=== PATIENT | male | born 1945 | race Caucasian/White ===

== ENCOUNTER 2023-07-11 17:03 | Observation (INO) | payer MEDICARE, SELFPAY ==
[2023-07-11] VITALS (11 sets, daily range): BP systolic 113–181; BP diastolic 59–142; PULSE 60; O2SAT 97; BMI 32.6; BMI 33.7
--- NOTE | 2023-07-11 12:00 | ED.GENMED ---
History of Present Illness
General
Chief Complaint: Fall
Time Seen by Provider: 07/11/23 11:33
Travel History
Have you had any contact with someone who has COVID-19?: No
Do you have any symptoms of coronavirus? Fever > 100 degrees, chills, cough, shortness of breath, sore throat, loss of taste or smell, muscle aches, or headache?: No
History of Present Illness
History of Present Illness:
77-year-old male with history of Parkinson's and mild dementia, as well as prior stroke presents to the emergency department for evaluation of increased weakness and difficulty with transfers. The patient typically utilizes a power chair for
mobilization, requires a walker to self transfer to commode and bed. He is having difficulty transferring and is falling frequently as a result. He feels that over the past several weeks he cannot use the right leg due to profound weakness. Does
have a history of prior stroke that affected the left leg. Denies any head strike or head trauma with these falls. Denies any other complaints. No recent fevers. No recent medication changes
Past History
Past History
ED Past Medical History: CVA, HTN, Hypercholesterolemia, NIDDM and Other (Parkinson's disease)
ED Past Surgical History: Orthopedic
Social History
Tobacco: Former smoker
Personal:
Living: with family
Review of Systems
Review of Systems
Allergies reviewed?: Yes
All Other Systems: ROS reviewed and negative except as documented in HPI and ROS
Phy Exam
Physical Exam
Physical Exam:
GEN: Well appearing, NAD, WDWN
HEENT: Oral mucosa moist, no scleral icterus
Cardiac: Regular rate
Lung: No respiratory distress, no tachypnea
MSK: No gross deformity or injuries
Skin: Good color, no pallor or jaundice, no rashes
Neuro: AO x3. Extremity tremors noted, significant asymmetric weakness involving the right lower extremity. All extremities are globally weak
Psych: Calm, cooperative
Course
Orders/Labs/Results
Orders:
Orders
07/11/23 11:59
CT Head W/o Iv Contrast Urgent
Comment:
Reason For Exam: falls, gait disturbance
07/11/23 12:11
Complete Blood Count/With Diff Urgent
Comprehensive Metabolic Panel Urgent
07/11/23 13:24
Urinalysis Reflex To Culture Urgent
Date Specimen was Collected: 07/11/23
Time Specimen was Collected: 13:22
Urine Microscopic Reflex Cult Urgent
Urine Culture Urgent
LUIZ Source: U
Specimen Description:
Date Specimen was Collected: 07/11/23
Time Specimen was Collected: :
07/11/23 14:04
Case Management Consult ONCE
Case Management Consult: [facility]pc Placement
Pt Eval And Treat Urgent
Activity Level: As Tolerated
Abnormal Lab Results
07/11/23 07/11/23
12:11 13:24
RBC 4.42 L 10^6/uL
(4.70-6.10)
MPV 11.5 H fL
(7.4-10.4)
Creatinine 0.6 L mg/dL
(0.7-1.3)
Glucose 175 H mg/dl
(70-99)
AST 15 L U/L
(17-59)
Leukocyte Esterase Rfl 1+ A
(Negative)
Urine Bacteria (Reflex) Few A
(Negative)
07/11/23 12:11
07/11/23 12:11
Vital Signs
Initial and Last Documented VS:
Initial Vital Signs
Temp Pulse Resp BP Pulse Ox
97.9 F 65 16 113/74 96
07/11/23 10:13 07/11/23 10:13 07/11/23 10:13 07/11/23 10:13 07/11/23 10:13
Last Documented Vital Signs
Temp Pulse Resp BP Pulse Ox
97.9 F 59 18 159/83 96
07/11/23 10:13 07/11/23 12:31 07/11/23 12:31 07/11/23 12:12 07/11/23 12:13
MDM/Problems Addressed
MDM/Problems Addressed:
Patient's medical workup is grossly unremarkable. He is significantly functionally deconditioned. Certainly consideration for subacute CVA given the right lower extremity asymmetric weakness however CT of the head shows no evidence for this and
his symptoms have been ongoing for approximately 3 weeks. Will have the patient evaluated by physical therapy and case management for placement considerations as he is not suitable to go home at this time.
Patient was seen in the emergency department by therapy and case management and agreed with rehab placement. Per case management patient will require hospitalist evaluation in order to be accepted to SNF, will place in observation under the
hospitalist service
*Critical Care Note
Total Time (30-74mins, 75-104mins- exclusive of procedures): Not Applicable
ED Attending Note
-
Portions of this chart may have been created with voice recognition software.� Occasional wrong word or��sound alike� substitutions may have occurred due to the inherent limitations of voice recognition software.
Discharge Plan
Departure
Patient Disposition: Admit
Date of Disposition: 07/11/23
Time of Disposition: 15:44
Admit to: Med/Surg
Presentation/result/management discussed w/ accepting MD/DO: Hospitalist
Discharge Problem:
Ambulatory dysfunction, Parkinson disease
Prescriptions:
No Action
terazosin 1 MG capsule
2 mg PO HS
fluoxetine 20 MG capsule
20 mg PO DAILY
pioglitazone 15 MG tablet
15 mg PO DAILY
metformin 850 MG tablet
850 mg PO BID@1000,1900
glimepiride 1 MG tablet
1 mg PO DAILY
memantine 10 MG tablet
10 mg PO BID
losartan 50 MG tablet
50 mg PO DAILY
fenofibrate 54 MG tablet
54 mg PO DAILY
clopidogrel 75 MG tablet
75 mg PO DAILY
pantoprazole 40 MG tablet,delayed release (DR/EC)
40 mg PO BID
zolpidem 5 MG tablet
5 mg PO HS
Rx Instructions:
02/04/2023, patient filled this medication on 11/13/2022 for 90 tablets according to PDMP.
metoprolol succinate 50 MG tablet extended release 24 hr
50 mg PO DAILY
atorvastatin 20 MG tablet
10 mg PO DAILY
donepezil 10 mg Tablet
10 mg PO HS
carbidopa-levodopa 25-250 mg Tablet
1 tab PO 5/D
Patient Comments:
02/04/2023, patient's spouse states that patient takes one tablet of this medication @0700, 1100, 1500, 1900, and 2300.
Rx Instructions:
02/04/2023, patient takes one tablet of this medication fives times a day.
carbidopa-levodopa 25-100 mg Tablet
1 tab PO BID@0700,1500
potassium citrate 10 mEq (1,080 mg) Tablet Extended Release
10 meq PO BID
hyoscyamine sulfate 0.125 mg Tablet
0.375 mg PO DAILY
hyoscyamine sulfate 0.125 mg Tablet
0.375 mg PO NOON
hyoscyamine sulfate 0.125 mg Tablet
0.25 mg PO HS
Align 4 mg Capsule
4 mg PO DAILY PRN (Reason: diarrhea)
cholecalciferol (vitamin D3) 50 mcg (2,000 unit) Tablet
50 mcg PO DAILY
doxycycline hyclate 100 mg Capsule
100 mg PO Q12 12 Days Qty: 24 0RF
Referrals:
Venancio Simmons MD [Family Provider] -
Interventions
Interventions:
*Risk Screen - Suicide Last Done: 07/11/23 10:13
*General Assessment Last Done: 07/11/23 10:13
*Neglect/Abuse Screening Last Done: 07/11/23 10:13
*ED COVID-19 Vaccine History Last Done: 07/11/23 12:04
ED-Musculoskeletal Assessment Last Done: 07/11/23 12:14
ED- Neurological Assessment Last Done: 07/11/23 12:14
ED-Skin Assessment Last Done: 07/11/23 14:35
Discharge Date and Time
Print Language: QATARI
[2023-07-11 12:20] LABS: % Basophils 1.1 % (0-2); % Eosinophils 3.8 % (0-6); % Immature Granulocytes 0.5 % (0-0.5); % Lymphocytes 22.4 % (20.5-51.1); % Neutrophils 66.2 % (42.2-75.2); Absolute Basophils 0.1 10^3/uL (0-0.2); Absolute Eosinophils 0.2 10^3/uL (0-0.7); Absolute Lymphocytes 1.4 10^3/uL (1.2-3.4); Absolute Monocytes 0.4 10^3/uL (0.1-0.6); Absolute Neutrophils 4.2 10^3/uL (1.4-6.5); Hematocrit 39.4 % (39.0-52.0); Hemoglobin 13.1 g/dL (13.0-18.0); Mean Corp Hgb Conc. 33.2 g/dL (33.0-37.0); Mean Corpuscular Hgb 29.6 pg (27.0-31.0); Mean Corpuscular Volume 89.1 fL (80.0-94.0); Mean Platelet Volume 11.5 fL (7.4-10.4); Nucleated Red Blood Cells % 0 % (-); Platelet Count 145 10^3/uL (130-400); Red Blood Cell Count 4.42 10^6/uL (4.70-6.10); Red Cell Dist. Width 12.6 % (11.5-14.5); White Blood Cell Count 6.3 10^3/uL (4.8-10.8)
[2023-07-11 12:51] LABS: ALT (SGPT) < 10 U/L (0-50); AST (SGOT) 15 U/L (17-59); Albumin 3.8 g/dl (3.5-5.0); Alkaline Phosphatase 62 U/L (38-126); Blood Urea Nitrogen 17 mg/dl (9-20); Calcium 9.4 mg/dl (8.4-10.2); Carbon Dioxide 28 mmol/L (22-30); Chloride 103 mmol/L (98-107); Estimated Creatinine Clearance 124 ml/min; Glucose 175 mg/dl (70-99); Potassium 4.2 mmol/L (3.5-5.1); Sodium 136 mmol/L (135-145); Total Bilirubin 0.8 mg/dl (0.2-1.3); Total Protein 6.3 g/dl (6.3-8.2); eGFR > 60.00
[2023-07-11 13:31] LABS: Urine Albumin Negative (Neg - Trace); Urine Bilirubin Negative (Negative); Urine Character Clear (Clear); Urine Color Yellow; Urine Glucose Negative (Negative); Urine Ketone Negative (Negative); Urine Leukocyte 1+ (Negative); Urine Nitrite Negative (Negative); Urine Occult Blood Negative (Negative); Urine Specific Gravity 1.015 (<1.030); Urine Urobilinogen Negative (Neg - 1+)
[2023-07-11 14:32] LABS: Urine Squamous Cell 0-2 /LPF (Few)
[2023-07-11 14:33] LABS: Urine Bacteria Few (Negative); Urine Red Blood Cell 0-2 /HPF (0-2)
--- NOTE | 2023-07-11 14:50 | CM ---
Addendum entered by Tori Mcginnis RN 07/11/23 15:15:
PT done not documented yet. Referral sent via care port to SNF.
Original Note:
Alert awake oriented patient who lives with his Alice in an apartment at [facility] with an elevator. He uses an electric wheelchair and walker. He slipped when transferring to wheelchair. said he is getting more weak. He does not
ambulate as per .He is assisted all activities of daily living.As per ER nurse PT eval has not been done yet. chose [facility] at SNF picks.
[facility]
PCP Dr Burch
PLAN To SNF after accepted and approved
--- NOTE | 2023-07-11 16:38 | HPS.HSE ---
Family Physician
-
Family Physician: Venancio Simmons
Chief Complaint
-
right sided weakness
History of Present Illness
77-year-old male past medical history of Parkinson's disease, mild dementia, HFpEF, hypertension, hyperlipidemia, CVA with residual left-leg weakness, spinal stenosis, DVT, nephrolithiasis, diabetes, asbestosis, obesity, presenting for relatively
sudden onset of right lower extremity weakness over the past few weeks. Patient typically utilizes a power chair for mobilization and requires walker for self transfer to bed. He has been having difficulty with this and has been frequently
falling. Denies any head injury.
Patient also complaining of numbness and tingling in his right forearm and first 3 fingers of his right hand. Patient's family also noticed right facial droop over this time. Patient denies headache. He has chronic right eye blurry vision.
Denies any difficulty speaking. He sometimes coughs after swallowing but this is not new. Parkinson disease has been relatively stable until the past few weeks. No new medications.
Patient does have some residual left lower extremity weakness from prior stroke.
Patient denies smoking or alcohol use.
Medical History
Past Medical History
Past Medical History: Reports Other ( Parkinson's disease, mild dementia, HFpEF, hypertension, hyperlipidemia, CVA with residual left-leg weakness, spinal stenosis, DVT, nephrolithiasis, diabetes, asbestosis, obesity)
Past Surgical History: Reports Other (Orthopedic)
Social History
Tobacco: Non-smoker
Alcohol: None
Drug: None
Family History
Family History: Not pertinent
Allergies / Home Medications
Allergies reflects when Allergies were last updated in [facility].
Home Medications with original date entered in [facility]
Allergy/Medication List:
Allergies
Allergy/AdvReac Type Severity Reaction Status Date / Time
codeine Allergy Unknown Verified 11/16/21 06:50
latex Allergy Unknown Verified 11/16/21 06:50
oxycodone HCl [From Percocet] Allergy Unknown Verified 11/16/21 06:50
Home Medications
fluoxetine 20 mg capsule 20 mg PO DAILY Mental Health/Anxiety 11/12/12
glimepiride 1 mg tablet 1 mg PO DAILY Diabetes 03/08/18
memantine 10 mg tablet 10 mg PO BID@1100,1900 Neurological Condition 03/08/18
metformin 850 mg tablet 850 mg PO BID@1000,1900 Diabetes 03/08/18
pioglitazone 15 mg tablet 15 mg PO DAILY Diabetes 03/08/18
losartan 50 mg tablet 50 mg PO DAILY Blood pressure 11/12/18
clopidogrel 75 mg tablet 75 mg PO DAILY Blood clot prevention/tx 01/11/20
fenofibrate 54 mg tablet 54 mg PO DAILY High cholesterol 01/11/20
pantoprazole 40 mg tablet,delayed release 40 mg PO BID@1100,1900 Gastrointestinal issue 01/11/20
zolpidem 5 mg tablet 5 mg PO HS Sleep 01/13/20
atorvastatin 20 mg tablet 10 mg PO DAILY High cholesterol 09/12/21
metoprolol succinate 50 mg tablet,extended release 24 hr 50 mg PO DAILY Blood pressure 09/12/21
donepezil 10 mg tablet 10 mg PO HS MEMORY 11/11/21
carbidopa 25 mg-levodopa 100 mg tablet 1 tab PO BID@0700,1500 PARKINSONS 11/16/21
carbidopa 25 mg-levodopa 250 mg tablet 1 tab PO 5/D@0700,11,15,19,23 PARKINSONS 11/16/21
Bifidobacterium infantis 4 mg capsule (Align) 4 mg PO Q48H 02/04/23
cholecalciferol (vitamin D3) 50 mcg (2,000 unit) tablet 50 mcg PO DAILY Supplement 02/04/23
hyoscyamine sulfate 0.125 mg tablet 0.25 mg PO QPMPRN PRN secretions 02/04/23
hyoscyamine sulfate 0.125 mg tablet 0.375 mg PO BIDPRN PRN secretions 02/04/23
potassium chloride 10 mEq tablet,extended release 10 meq PO BID@1100,1900 07/11/23
propylene glycol (PF) 0.6 % eye drops (Systane Complete PF) 1 drp ophthalmic (eye) DAILY 07/11/23
propylene glycol (PF) 0.6 % eye drops (Systane Complete PF) 1 drp ophthalmic (eye) HSPRN PRN dry eyes 07/11/23
terazosin 2 mg capsule 2 mg PO HS 07/11/23
Review of Systems
-
History Source: Patient
A 12 point ROS was completed and negative except as noted: Yes
Constitutional: Reports No Symptoms
EENT: Reports No Symptoms
Respiratory: Reports No Symptoms
Cardiac: Reports No Symptoms
Abdomen/GI: Reports No Symptoms
: Reports No Symptoms
Musculoskeletal: Reports No Symptoms
Skin: Reports No Symptoms
Neurological: Reports See HPI
Endocrine: Reports No Symptoms
Hematologic/Lymphatic: Reports No Symptoms
Psych: Reports No Symptoms
Physical Exam
Vital Signs
Vital Signs
Temp Pulse Resp BP Pulse Ox
97.9 F 59 18 159/83 96
07/11/23 10:13 07/11/23 12:31 07/11/23 12:31 07/11/23 12:12 07/11/23 12:13
Physical Exam
General: Well Developed, Well Nourished and No Apparent Distress
HEENT: NormoCephalic, Moist mucous membranes and Atraumatic
Respiratory: Clear
Cardiac: S1/S2 and Regular Rhythm; No Murmur or Rub
GI: Soft, Non Tender, Non Distended and Normal Bowel Sounds; No Organomegaly
Rectal: Deferred by Provider
Musculoskeletal: No Clubbing, No Cyanosis and No Edema
Skin: No Rash
Neuro: Nonfocal/grossly intact and Other (right lower leg weakness (+2 NIH), right facial droop (+1))
Laboratory Results
-
07/11/23 12:11
07/11/23 12:11
Laboratory Results
Total Bilirubin 0.8 mg/dl (0.2-1.3) 07/11/23 12:11
AST 15 U/L (17-59) L 07/11/23 12:11
ALT < 10 U/L (0-50) 07/11/23 12:11
Alkaline Phosphatase 62 U/L (38-126) 07/11/23 12:11
Data Reviewed
-
Lab Data: Labs Reviewed by me
Old Records: Reviewed
Impression/Plan
-
IMPRESSION:
PLAN:
# Asymmetric new right lower extremity weakness/right upper extremity numbness/right facial droop likely secondary to subacute CVA
# Prior left posterior limb of internal capsule/anterolateral left thalamus strokes with residual left lower leg weakness
-NIH of 3
-Out of window for tPA
-CT head shows no acute abnormality
-Check MRI/MRA head and neck
-Continue Plavix, give 325 mg aspirin, continue 81 mg daily
-PT/OT, case management
Parkinson's disease
-Continue carbidopa-levodopa
Mild dementia
-Continue donepezil, memantine
-Continue fluoxetine
Chronic HFpEF
Essential hypertension
-Continue losartan
-Continue metoprolol
-Continue terazosin
Hyperlipidemia
-Continue statin, fenofibrate
Spinal stenosis
History of DVT
Nephrolithiasis
Type 2 diabetes
-Continue metformin
-Continue glimepiride, pioglitazone
Obesity
Asbestosis
DNR/DNI
DVT prophylaxis�SCDs
Regular diet
[2023-07-11] MEDS: ASPIRIN 325 MG PO (17:39)
[2023-07-11] MEDS: KCL 10 MEQ PO (20:10)
[2023-07-11] MEDS: ARICEPT 10 MG PO (20:10)
[2023-07-11] MEDS: GLUCOPHAGE 850 MG PO (20:10)
[2023-07-11] MEDS: PROTONIX 40 MG PO (20:10)
[2023-07-11] MEDS: SINEMET 25-250 1 TABLET PO ×2 (20:11→22:01)
[2023-07-11] MEDS: NAMENDA 10 MG PO (20:21)
[2023-07-11] MEDS: HYTRIN 2 MG PO (22:01)
[2023-07-11] MEDS: AMBIEN 5 MG PO (22:02)
[2023-07-12] VITALS (8 sets, daily range): BP systolic 132–174; BP diastolic 69–85
[2023-07-12] MEDS: SINEMET 25-250 1 TABLET PO ×5 (05:53→23:10)
[2023-07-12] MEDS: SINEMET 25-100 1 TABLET PO ×2 (05:53→16:29)
[2023-07-12 06:53] LABS: % Basophils 0.9 % (0-2); % Eosinophils 3.3 % (0-6); % Immature Granulocytes 0.6 % (0-0.5); % Lymphocytes 31.2 % (20.5-51.1); % Monocytes 6.4 % (1.7-9.3); % Neutrophils 57.6 % (42.2-75.2); Absolute Basophils 0.1 10^3/uL (0-0.2); Absolute Eosinophils 0.2 10^3/uL (0-0.7); Absolute Lymphocytes 2.2 10^3/uL (1.2-3.4); Absolute Monocytes 0.5 10^3/uL (0.1-0.6); Absolute Neutrophils 4.1 10^3/uL (1.4-6.5); Hematocrit 39.7 % (39.0-52.0); Hemoglobin 12.9 g/dL (13.0-18.0); Mean Corp Hgb Conc. 32.5 g/dL (33.0-37.0); Mean Corpuscular Hgb 29.9 pg (27.0-31.0); Mean Corpuscular Volume 92.1 fL (80.0-94.0); Mean Platelet Volume 12.2 fL (7.4-10.4); Nucleated Red Blood Cells % 0 % (-); Platelet Count 134 10^3/uL (130-400); Red Blood Cell Count 4.31 10^6/uL (4.70-6.10); Red Cell Dist. Width 12.6 % (11.5-14.5)
[2023-07-12 07:17] LABS: ALT (SGPT) < 10 U/L (0-50); AST (SGOT) 19 U/L (17-59); Albumin 3.6 g/dl (3.5-5.0); Alkaline Phosphatase 60 U/L (38-126); Blood Urea Nitrogen 16 mg/dl (9-20); Calcium 9.2 mg/dl (8.4-10.2); Carbon Dioxide 27 mmol/L (22-30); Chloride 104 mmol/L (98-107); Estimated Creatinine Clearance 108 ml/min; Glucose 131 mg/dl (70-99); Potassium 3.9 mmol/L (3.5-5.1); Sodium 138 mmol/L (135-145); Total Bilirubin 0.7 mg/dl (0.2-1.3); Total Protein 5.9 g/dl (6.3-8.2); eGFR > 60.00
[2023-07-12] MEDS: PROZAC 20 MG PO (08:54)
[2023-07-12] MEDS: TRICOR 48 MG PO (08:55)
[2023-07-12] MEDS: PLAVIX 75 MG PO (08:55)
[2023-07-12] MEDS: TOPROL XL 50 MG PO (08:55)
[2023-07-12] MEDS: AMARYL 1 MG PO (08:55)
[2023-07-12] MEDS: VITAMIN D3 (cholecalciferol) 50 MCG PO (08:55)
[2023-07-12] MEDS: ACTOS 15 MG PO (08:55)
[2023-07-12] MEDS: VISBIOME 1 CAP PO (08:55)
[2023-07-12] MEDS: COZAAR 50 MG PO (08:55)
[2023-07-12] MEDS: LIPITOR 10 MG PO (08:55)
[2023-07-12] MEDS: REFRESH EYE DROPS (PF) 1 DROPS BOTH EYES (08:56)
[2023-07-12] MEDS: LOW STRENGTH ASPIRIN 81 MG PO (08:57)
--- NOTE | 2023-07-12 09:03 | CON.NEURO4 ---
Addendum entered and electronically signed by Jon Trevino MD 07/12/23 11:35:
I saw and evaluate the patient I reviewed the note by Nury Andres agree with the findings the following comments:
77-year-old male with a past ministry of Parkinson disease with associated dementia, spinal stenosis, previous ischemic stroke, chronic right leg weakness presents to the hospital with increasing right leg weakness, minor amount of right arm and
hand paresthesia and observe right facial asymmetry by his family. Patient reports that they have called the ambulance multiple times this week due to immobility and fall issues. He reports he lives alone with his . Denies any recent
illnesses or changes in medication regimen including Sinemet. No headache currently. Frustrated about not moving well.
Patient had had previous similar incidences of right leg weakness and generalized weakness seen in our hospital January 2023 as well as October 2018.
He is on Plavix for secondary stroke prevention.
Neurologic examination shows cognitive impairment and mild dementia, no aphasia.
No cranial nerve deficits seen no facial weakness appreciated.
No weakness or drift of the the arms bilaterally.
Right leg shows moderate weakness 4/5 hip flexion.
Minimal cogwheel rigidity in the right arm and wrist more than the left, moderate General parkinsonism and bradykinesia.
Previous brain MRI from 2012 as well as 2018 reviewed
There is T2/FLAIR shine through producing some mild brightness on the diffusion sequence in the left thalamus that does not represent acute stroke, similar appearance is on both the 2013 and 2019 MRIs in this area. Chronic infarct on the left basal
ganglia area.
Assessment: Suspect that these are worsening of chronic issues which are multifactorial gait issues and is from spinal stenosis, previous ischemic stroke, Parkinson's disease. No recent obvious medication changes or severe metabolic derangements or
acute infectious illnesses.
Recommendations
-Continue with Plavix 75 mg daily alone
-Check MRI brain without contrast
-Consideration for EMG in the outpatient setting to evaluate for possibly carpal tunnel syndrome producing right hand paresthesia
-Discussed with patient and were discussed with case management recommendation for any avenues for greater resources or aids or help at home given significant disability and immobility from Parkinson's disease spinal stenosis and previous stroke
Original Note:
Documented by User: Nury Corcoran NP 07/12/23 10:48
Consultation - Neurology 4
-
CONSULTING PHYSICIAN: Alia Trevino MD
REFERRING PHYSICIAN: Hospitalists/Dr. Cristina
DICTATED BY: ANDREW Vidales
DATE/TIME OF REQUEST: 07/12/23
DATE/TIME OF CONSULTATION: 07/12/23
Reason for Consultation: Weakness
History of Present Illness:
This is a 77-year-old right-handed male who has presented to the hospital with report of generalized weakness and worsening of his chronic RLE weakness. Patient is followed by Neurology Dr. Dugan as an outpatient for a 20 year history of Parkinson
disease and dementia and has been evaluated by our inpatient Neurology service several times in the past for similar symptoms.
From my previous evaluation on 02/04/23:
'This is a 77-year-old right-handed male with a PMH of Parkinson disease, dementia, HTN, HLD, chronic ischemic stroke, RLE weakness, and DVT who has presented to the hospital on 02/03/23 with report of increased weakness. Patient has been evaluated
by our Neurology service as an inpatient in the past and is followed by Neurology Dr. Dugan as an outpatient.
From previous evaluation by Dr. Hazel on 11/13/18:
''72-year-old male with a history of Parkinson's disease, TIA, stroke and spinal stenosis with chronic right lower extremity weakness admitted for evaluation for generalized weakness. The patient states that for the past 3 days he has been unable to
sit up and feels 'weak all over.' He also reports severe hypophonia. He has required multiple people to assist him sitting up.� He is apparently bed and wheelchair bound at baseline. He denies any focal weakness and it appears that his right lower
extremity weakness is chronic. He denies any associated dysarthria, aphasia, numbness, headache, confusion, loss of awareness or loss of consciousness. He denies any diplopia or change in his vision. Family has noted some mild confusion. He has no
clear past medical history of seizure.� He has had decreased oral intake over the past few days. Increased swelling in the right more so than the left lower extremity has been noted. He has a history of edema in the right leg for which she is
followed as an outpatient.� He is unable to tell me who he follows with as an outpatient for his Parkinson's and dementia.� As an outpatient, he takes simvastatin 20 mg, Plavix 75 mg as well as Aricept, Namenda, Sinemet and pramipexole.� Outpatient
records indicate he has never been seen by the [facility] group.
He was seen by service in the past in October 2012 at which time he presented with sudden onset of bilateral lower extremity weakness that lasted approximately 10 hours in duration and then resolved. He denied any other associated focal neurological
deficits. At that time it was noted that he had history of chronic right lower extremity weakness related to back surgery vs a 2001 stroke and was walking with a walker. During that admission, he also reported a history of TIA consisting of aphasia.
MRI brain done during this 2012 admission showed no acute stroke but did show a focal area of signal abnormality in the left lentiform nucleus, compatible with chronic ischemic infarct. Mild to moderate diffuse atrophy was seen as well as mild
T2-weighted white matter hyperintensities c/w small vessel disease.� His bilateral lower extremity weakness was attributed to freezing episodes related to his Parkinson's vs TIA.� EEG showed no evidence of seizure. Carotid ultrasound showed no
significant stenosis. He was discharged on Plavix with statin at that point.''
Yesterday (02/03/23), patient reports that he had increased weakness in the afternoon and was unable to transfer from the toilet to his wheelchair as he usually does. His was unable to assist him and called 911. Patient reports that this does
happen to him intermittently, but he is unable to state a cause for these episodes in the past. In the ER, urinalysis is suggestive of UTI. Today, patient reports feeling well but he has not been out of bed so he is unsure how his strength is. He
denies any headache, dizziness, vision changes, speech/swallow difficulty, chest pain, palpitations, and shortness of breath. He endorses chronic RLE weakness and also notes that he has had numbness in his right hand 1st, 2nd, and 3rd fingers
radiating up to his elbow starting one month ago. He has urinary incontinence at baseline but denies any dysuria. His reports that his urine has a foul odor but she denies any confusion or change in his mental status. He is taking clopidogrel
75mg daily and denies missing any doses or having any recent changes made to his Parkinson's medication regimen.
Today (07/12/23): Patient reports that 3-4 weeks ago he developed generalized weakness and profound worsening of his chronic RLE weakness. He ambulates with a power chair and transfers independently at baseline, but he started to be too weak to
transfer himself or stand/pivot. He has had these symptoms in the past, typically associated with an infection, so his took his to his PCP for a urinalysis which was unremarkable. His symptoms persisted and he reports that over the past 3 days
they have had to call EMS 6 times to help him back up off of the ground after he slid out of his chair. On arrival in the ER on 07/11/23, CT head was obtained and is negative for any acute abnormalities. He is not a candidate for TNK/IAT due to
unclear diagnosis, similar symptoms in the past not associated with stroke. He is taking clopidogrel 75mg daily for stroke prevention. He endorses a history of significant left-sided dyskinesias from Sinemet usage. Patient denies headache,
dizziness, vision changes, speech/swallow difficulty, nausea, dysuria, chest pain, palpitations, and shortness of breath. He reports ongoing numbness in his right hand 1st, 2nd, and 3rd fingers radiating up to his elbow which was present on
evaluation in January 2023, he still has not been evaluated for this as an outpatient. He denies any recent fever, cough, congestion, diarrhea, or sick exposures.
Past Medical History: � Parkinson disease, dementia, HTN, HLD, chronic left lentiform nucleus, left internal capsule/thalamus ischemic strokes, TIA consisting of aphasia, spinal stenosis, chronic RLE weakness, DVT, kidney stone
Surgical History: R TKR, lumbar fusion, cholecystectomy, right ureteroscopy/laser lithotripsy, neck surgery, left rotator cuff repair, left ankle surgery
Family History: Reviewed and noncontributory.
Social History: Former tobacco. Denies alcohol and illicit drug use.
Allergies: Latex, oxycodone, codeine.
Home Medications:
Review of Symptoms:
Patient denies any fever, headache, chest pain, shortness of breath, GI or symptoms.
�Per the HPI.�All systems are reviewed negative except above.
Physical Exam:
The patient is afebrile, abdomen is nondistended, breathing is unlabored, skin is warm and dry, no edema.
NIH Stroke Scale:
I performed the NIH stroke scale on the patient on 07/12/23 at 1000. The patient scored 3 points on the NIH stroke scale assessment, which were assigned as follows: See below.
Neurologic Examination:
The patient is awake, alert and oriented x3. He is able to follow commands and answer questions appropriately. Speech is hypophonic. There is no aphasia or dysarthria. On cranial nerve assessment, pupils are 3 mm bilateral, round and reactive to
light and accommodation. Visual ramos are full. Extraocular movements are intact. Facial sensations are intact and bilaterally symmetrical, there is no facial asymmetry. Hearing is intact bilaterally to normal conversation volume. Tongue palate
and uvula are midline. Sternocleidomastoid strengths are full bilaterally. Motor strengths are 5/5 bilateral upper, 4/5 LLE, 3+/5 RLE on medical research [place] scale. There is drift in BLE. +Dyskinesias in the left arm and left leg. No rigidity
noted. Deep tendon reflexes are 1+ bilateral upper and absent bilateral lower extremities and Babinski is absent bilaterally. There was no extinction noted on double simultaneous stimulation. Coordination is intact by finger to nose bilaterally.
Lab Results: See below.
Neuro Imaging:
1. CT Head 07/11/23: No acute intracranial abnormality.
Differentials for the patient's presentation include:
1. Worsening of multifactorial chronic ambulatory dysfunction; Parkinson disease, previous CVA, and spinal stenosis. Unclear if a metabolic disturbance is exacerbating symptoms or if this is worsening of his chronic disease processes.
2. Very low concern for a new area of stroke.
3. RUE carpal tunnel syndrome.
Patient has the following risk factors for their symptoms: Hx CVA with residual RLE weakness, advanced Parkinson disease
IV Tenecteplase/IAT candidacy: He is not a candidate for TNK/IAT due to unclear diagnosis, similar symptoms in the past not associated with acute stroke.
Recommendations:
-MRI brain noncontrast ordered/pending.
-Continue home Plavix 75mg daily.
-Goal normotension.
-Check orthostatic vital signs.
-Continue home Parkinson and dementia medication regimen.
-Avoid antipsychotics.
-Consideration for additional support services at home to assist with his care.
-NIHSS and neurological checks per unit guidelines. Provide patient with a stroke education packet.
-PT/OT/ST evaluations
-EMG as an outpatient to evaluate for RUE carpal tunnel.
-Follow-up with Dr. Dugan as an outpatient.
-Will follow pending results.
Discussed patient care with: Dr. Trevino, the patient
Vital Signs and Labs
-
Vital Signs and Labs:
Vital Signs
Temp Pulse Resp BP Pulse Ox
98.0 F 67 22 130/78 95
07/12/23 07:55 07/12/23 08:55 07/12/23 07:55 07/12/23 08:55 07/12/23 10:15
Lab Results
07/12/23 05:52
07/12/23 05:52
Sodium 138 mmol/L (135-145) 07/12/23 05:52
Potassium 3.9 mmol/L (3.5-5.1) 07/12/23 05:52
BUN 16 mg/dl (9-20) 07/12/23 05:52
Glucose 131 mg/dl (70-99) H 07/12/23 05:52
Calcium 9.2 mg/dl (8.4-10.2) 07/12/23 05:52
Medications
-
Active Medications
Generic Name Dose Route Start Last Admin
Trade Name Freq PRN Reason Stop Dose Admin
Artificial Tears 1 drops 07/11/23 19:22
Artificial Tears Pf (Refresh) 10 Drop Droperette OPHTH 08/08/23 19:21
HSPRN PRN
dry eyes
Artificial Tears 1 drops 07/12/23 08:00 07/12/23 08:56
Artificial Tears Pf (Refresh) 10 Drop Droperette BOTH EYES 08/09/23 07:59 1 drops
DAILY KARLOS Administration
Atorvastatin Calcium 10 mg 07/12/23 08:00 07/12/23 08:55
Atorvastatin (Lipitor) 10 Mg Tablet PO 08/09/23 07:59 10 mg
DAILY KARLOS Administration
Carbidopa/Levodopa 1 tablet 07/11/23 19:14 07/12/23 05:53
Carbidopa (25 Mg)/Levodopa (250 Mg) Regular Release Tablet PO 08/08/23 19:13 1 tablet
5/D@0700,11,15,19,23 KARLOS Administration
Carbidopa/Levodopa 1 tablet 07/12/23 07:00 07/12/23 05:53
Carbidopa (25 Mg)/Levodopa (100 Mg) Regular Release Tablet PO 08/09/23 06:59 1 tablet
BID@0700,1500 KARLOS Administration
Cholecalciferol 50 mcg 07/12/23 08:00 07/12/23 08:55
Cholecalciferol (Vitamin D3) 50 Mcg Tablet (2,000 Units) PO 08/09/23 07:59 50 mcg
DAILY KARLOS Administration
Clopidogrel Bisulfate 75 mg 07/13/23 08:00
Clopidogrel 75 Mg Tablet PO 08/10/23 07:59
DAILY KARLOS
Dextrose 12.5 grams 07/12/23 10:03
Dextrose 50% (0.5 Grams/Ml) 50 Ml Syringe IV 08/09/23 10:02
[id number] PRN
hypoglycemia
Protocol
Donepezil HCl 10 mg 07/11/23 22:00 07/11/23 20:10
Donepezil Hcl 10 Mg Tablet PO 08/08/23 21:59 10 mg
HS KARLOS Administration
Fenofibrate 48 mg 07/12/23 08:00 07/12/23 08:55
Fenofibrate 48 Mg Tablet PO 08/09/23 07:59 48 mg
DAILY KARLOS Administration
Fluoxetine HCl 20 mg 07/12/23 08:00 07/12/23 08:54
Fluoxetine 20 Mg Capsule PO 08/09/23 07:59 20 mg
DAILY KARLOS Administration
Glimepiride 1 mg 07/12/23 08:00 07/12/23 08:55
Glimepiride 1 Mg Tablet PO 08/09/23 07:59 1 mg
DAILY KARLOS Administration
Glucagon 1 mg 07/12/23 10:03
Glucagon 1 Mg Vial IM 08/09/23 10:02
PRN PRN
hypoglycemia
Protocol
Hyoscyamine Sulfate 0.375 mg 07/11/23 19:20
Hyoscyamine 0.125 Mg (Sl/Oral) Tablet PO 08/08/23 19:19
BIDPRN PRN
secretions
Hyoscyamine Sulfate 0.25 mg 07/11/23 19:21
Hyoscyamine 0.125 Mg (Sl/Oral) Tablet PO 08/08/23 19:20
QPMPRN PRN
secretions
Insulin Aspart 0 units 07/12/23 11:30
Insulin Aspart Low Resistance 300 Units/3 Ml Pen.Injctr SC 08/09/23 11:29
AC KARLOS
Protocol
Lactobacillus/Bifidobacterium 1 cap 07/12/23 08:00 07/12/23 08:55
Lactobac/Bifidobac (Visbiome) PO 08/09/23 07:59 1 cap
Q48H KARLOS Administration
Losartan Potassium 50 mg 07/12/23 08:00 07/12/23 08:55
Losartan 50 Mg Tablet PO 08/09/23 07:59 50 mg
DAILY KARLOS Administration
Memantine 10 mg 07/11/23 19:14 07/11/23 20:21
Memantine 10 Mg Tablet PO 08/08/23 19:13 10 mg
BID@1100,1900 KARLOS Administration
Metformin HCl 850 mg 07/11/23 19:14 07/11/23 20:10
Metformin 850 Mg Regular Release Tablet PO 08/08/23 19:13 850 mg
BID@1000,1900 KARLOS Administration
Metoprolol Succinate 50 mg 07/12/23 08:00 07/12/23 08:55
Metoprolol 50 Mg Extended Release Tablet PO 08/09/23 07:59 50 mg
DAILY KARLOS Administration
Pantoprazole Sodium 40 mg 07/11/23 19:14 07/11/23 20:10
Pantoprazole 40 Mg Delayed Release Tablet PO 08/08/23 19:13 40 mg
BID@1100,1900 KARLOS Administration
Pioglitazone HCl 15 mg 07/12/23 08:00 07/12/23 08:55
Pioglitazone Hcl 15 Mg Tablet PO 08/09/23 07:59 15 mg
DAILY KARLOS Administration
Potassium Chloride 10 meq 07/11/23 19:14 07/11/23 20:10
Potassium Chloride 10 Meq Extended Release Tablet PO 08/08/23 19:13 10 meq
BID@1100,1900 KARLOS Administration
Terazosin HCl 2 mg 07/11/23 22:00 07/11/23 22:01
Terazosin 1 Mg Capsule PO 08/08/23 21:59 2 mg
HS KARLOS Administration
Zolpidem Tartrate 5 mg 07/11/23 22:00 07/11/23 22:02
Zolpidem Tartrate 5 Mg Tablet PO 08/08/23 21:59 5 mg
HS KARLOS Administration
Home Medications
�Medication �Instructions �Recorded
fluoxetine 20 mg capsule 20 mg PO DAILY Mental 11/12/12
Health/Anxiety
glimepiride 1 mg tablet 1 mg PO DAILY Diabetes 03/08/18
memantine 10 mg tablet 10 mg PO BID@1100,1900 03/08/18
Neurological Condition
metformin 850 mg tablet 850 mg PO BID@1000,1900 Diabetes 03/08/18
pioglitazone 15 mg tablet 15 mg PO DAILY Diabetes 03/08/18
losartan 50 mg tablet 50 mg PO DAILY Blood pressure 11/12/18
clopidogrel 75 mg tablet 75 mg PO DAILY Blood clot 01/11/20
prevention/tx
fenofibrate 54 mg tablet 54 mg PO DAILY High cholesterol 01/11/20
pantoprazole 40 mg tablet,delayed 40 mg PO BID@1100,1900 01/11/20
release Gastrointestinal issue
zolpidem 5 mg tablet 5 mg PO HS Sleep 01/13/20
atorvastatin 20 mg tablet 10 mg PO DAILY High cholesterol 09/12/21
metoprolol succinate 50 mg 50 mg PO DAILY Blood pressure 09/12/21
tablet,extended release 24 hr
donepezil 10 mg tablet 10 mg PO HS MEMORY 11/11/21
carbidopa 25 mg-levodopa 100 mg 1 tab PO BID@0700,1500 PARKINSONS 11/16/21
tablet
carbidopa 25 mg-levodopa 250 mg 1 tab PO 5/D@0700,11,15,19,23 11/16/21
tablet PARKINSONS
Bifidobacterium infantis 4 mg 4 mg PO Q48H 02/04/23
capsule (Align)
cholecalciferol (vitamin D3) 50 50 mcg PO DAILY Supplement 02/04/23
mcg (2,000 unit) tablet
hyoscyamine sulfate 0.125 mg tablet 0.25 mg PO QPMPRN PRN secretions 02/04/23
hyoscyamine sulfate 0.125 mg tablet 0.375 mg PO BIDPRN PRN secretions 02/04/23
potassium chloride 10 mEq 10 meq PO BID@1100,1900 07/11/23
tablet,extended release
propylene glycol (PF) 0.6 % eye 1 drp ophthalmic (eye) DAILY 07/11/23
drops (Systane Complete PF)
propylene glycol (PF) 0.6 % eye 1 drp ophthalmic (eye) HSPRN PRN 07/11/23
drops (Systane Complete PF) dry eyes
terazosin 2 mg capsule 2 mg PO HS 07/11/23
NIH Stroke Score
Subsequent NIH Scale
Date of Subsequent NIH Scale: 07/12/23
Time of Subsequent NIH Scale: 10:00
NIH Stroke Score
Level of Consciousness: 0 - Alert
LOC Questions: 0-Answers both correctly
LOC Commands: 0-Performs both correctly
Best Horizontal Gaze: 0-Normal
Visual Ramos: 0=Normal, no visual loss
Facial Palsy: 0=Normal, symmetrical
Motor - Right Arm: 0=No drift 10 seconds
Motor - Left Arm: 0=No drift 10 seconds
Motor - Right Le-Partial vs. gravity
Motor - Left Le-Drift < 5 seconds
Limb Ataxia: 0-Absent
Sensation: 0-Normal
Best Language: 0-No aphasia
Dysarthria: 0-Normal
Extinction and Inattention: 0-No abnormality
Total Score:: 3

Documented by User: Jon Trevino MD 07/12/23 11:29
NIH Stroke Score
NIH Stroke Score
Total Score:: 3
--- NOTE | 2023-07-12 09:23 | WOUNDNOTE ---
WON RN note: Patient admitted with ambulatory dysfunction.
See H&P for complete history.
PMH: NIDDM,HTN,Parkinsons,CVA, mild dementia and frequent falls.
Wound Location and type/assessment: Patient admitted with: Scattered partial thickness openings on both buttocks, larger one on R upper buttock suspect MASD vs stage 2 PI. Patient reports he sits all day at home and is incontinent, does not change
diaper. He states his told him he needs to change diaper more often. Using condom catheter in hospital but keeps on falling off reports nurse. Turned patient with assist from nurse Diaz, patient assisted. Heels are intact, no other wounds noted.
Appetite: Good.
Pressure redistribution devices in place: Versa care air, turning schedule, pillow under calves applied. Air chair cushion when sitting. Repositioned onto R semi side position.
Plan: Applied silicone foam to R buttock larger wound, then barrier cream to remainder of buttock open sores. Skin care and brief changed, condom catheter fell off.
Will confirm orders with hospitalist and updated nurse.
Updated care plan and will follow as needed.
Note to case management of equipment requested for discharge: VN if home
[2023-07-12] MEDS: PROTONIX 40 MG PO ×2 (11:10→18:23)
[2023-07-12] MEDS: KCL 10 MEQ PO ×2 (11:10→18:23)
[2023-07-12] MEDS: GLUCOPHAGE 850 MG PO ×2 (11:10→18:23)
[2023-07-12] MEDS: NAMENDA 10 MG PO ×2 (11:10→18:23)
[2023-07-12 11:19] LABS: Glucose - Point of Care 176 mg/dl (70-99)
[2023-07-12] MEDS: NOVOLOG FLEXPEN-LOW RESISTANCE 1 UNITS SC (12:24)
--- NOTE | 2023-07-12 13:42 | W.PN.HOSP.TC ---
Today's Communication/Plan
-
Venous Doppler right lower extremity
Discharge planning for rehab
Assessment / Plan
Assessment / Plan
77-year-old male with Parkinson disease admitted with right lower extremity weakness uses a power chair for mobilization requires walker for transfer to bed has been having difficulties with this. He needs help transfer to the chair at home per
. He also had some neck numbness and tingling of the right forearm and first 3 fingers of the right hand.
CVS: S1-S2 normal
Chest: CTA B/L
Abdomen: Soft, NT / Bowel sounds present
Extremities: Edema of the right lower extremity
OCCASIONAL BABYSITTER: Good distal muscle strength, mild paresthesia on the dorsal right arm and also lateral 3 fingers on the right, bilateral lower extremities, good hand grasp no pronator drift
No facial droop noted
# Asymmetric new right lower extremity weakness/right upper extremity numbness/right facial droop Noted by family
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
-Admitted to rule out CVA
-CT head shows no acute abnormality
-Good distal muscle strength bilateral lower extremity, mild paresthesia on the dorsal right arm and also lateral 3 fingers on the right.
-Continue Plavix
-PT/OT, case management
-Neurology evaluation appreciated. Feels that right lower extremity weakness is likely spinal stenosis related
Also may have carpal tunnel syndrome.
-Also needs EMG as outpatient for the right hand paresthesia
#Parkinson's disease
-Continue carbidopa-levodopa
#Mild dementia
-Continue donepezil, memantine
#Anxiety and Depression-Continue fluoxetine
#Chronic HFpEF
#Essential hypertension
-Continue losartan
-Continue metoprolol
-Continue terazosin
#Hyperlipidemia
-Continue statin, fenofibrate
#Spinal stenosis
Lumbar and also Cervical
#History of DVT-
With right lower extremity edema will get a Doppler
#Nephrolithiasis
#Type 2 diabetes
-Continue metformin, glimepiride, pioglitazone
-Accu checks and SSI
#Obesity
#Asbestosis
#Ex Smoker
#DNR/DNI
#DVT prophylaxis�SCDs
Discussed with patient's at bedside and patient's daughter on the phone
Discussed with neurology
Discussed with case management
Patient would benefit from rehab /SNF to improve strength
Anticipated Discharge: Within 24 hours
Subjective/Interval History
-
Date of Service: July 12, 2023
Objective Data
-
Labs:
Laboratory Results
07/12/23
05:52
WBC 7.0
Hgb 12.9 L
Hct 39.7
Plt Count 134
Sodium 138
Potassium 3.9
Chloride 104
Carbon Dioxide 27
BUN 16
Creatinine 0.7
Glucose 131 H
Calcium 9.2
Total Bilirubin 0.7
AST 19
ALT < 10
Alkaline Phosphatase 60
Vital Signs:
Vital Signs
Temp Pulse Resp BP Pulse Ox
97.9 F 70 20 164/81 94
07/12/23 11:55 07/12/23 11:55 07/12/23 11:55 07/12/23 11:55 07/12/23 11:55
I&O
07/11/23 07/12/23 07/13/23
06:59 06:59 06:59
Intake Total 120 / 120
Balance 120 / 120
--- NOTE | 2023-07-12 15:23 | CM ---
Patient approved through [facility] waiver program to [facility] for tomorrow, 07/13/23. CM met with patient and , reports she does not travel far and is not sure if she can travel to [place]. CM reports Madhuri Mitchell and Ian
unfortunately do not participate in the waiver program. reports she will talk to her children, asks CM to keep plan for discharge tomorrow to [place]. reports otherwise she would take patient home. CM discussed per PT notes and heavy
assist needed, concern for patient to return home, reports understanding. FOX status reviewed, refused to sign, placed in chart. CM will continue to follow for discharge planning needs.
Plan; [facility] tomorrow, will require ambulance transport.
[2023-07-12 16:51] LABS: Glucose - Point of Care 93 mg/dl (70-99)
[2023-07-12] MEDS: NOVOLOG FLEXPEN-LOW RESISTANCE SC (17:01)
[2023-07-12] MEDS: AMBIEN 5 MG PO (21:14)
[2023-07-12] MEDS: ARICEPT 10 MG PO (21:14)
[2023-07-12] MEDS: HYTRIN 2 MG PO (21:14)
[2023-07-12 21:19] LABS: Glucose - Point of Care 118 mg/dl (70-99)
[2023-07-12] MEDS: REFRESH EYE DROPS (PF) 1 DROPS OPHTH (21:22)
[2023-07-13 03:44] VITALS: BP 153/83
[2023-07-13 06:00] VITALS: BMI 33.2
[2023-07-13] MEDS: SINEMET 25-100 1 TABLET PO ×2 (06:06→15:25)
[2023-07-13] MEDS: SINEMET 25-250 1 TABLET PO ×3 (06:06→15:25)
[2023-07-13 07:06] LABS: Glucose - Point of Care 116 mg/dl (70-99)
[2023-07-13 07:55] VITALS: BP 149/56
[2023-07-13 09:09] LABS: Glycohemoglobin (HgbA1c) 6.5 % (4.0-5.6)
[2023-07-13] MEDS: NOVOLOG FLEXPEN-LOW RESISTANCE SC (09:30)
[2023-07-13] MEDS: VITAMIN D3 (cholecalciferol) 50 MCG PO (09:31)
[2023-07-13] MEDS: TRICOR 48 MG PO (09:31)
[2023-07-13] MEDS: LIPITOR 10 MG PO (09:31)
[2023-07-13] MEDS: PROZAC 20 MG PO (09:31)
[2023-07-13] MEDS: ACTOS 15 MG PO (09:31)
[2023-07-13] MEDS: AMARYL 1 MG PO (09:31)
[2023-07-13] MEDS: PLAVIX 75 MG PO (09:31)
[2023-07-13] MEDS: REFRESH EYE DROPS (PF) 1 DROPS BOTH EYES (09:32)
[2023-07-13] MEDS: TOPROL XL 50 MG PO (09:32)
[2023-07-13] MEDS: COZAAR 50 MG PO (09:33)
[2023-07-13 11:55] VITALS: BP 128/67
[2023-07-13 11:55] LABS: Glucose - Point of Care 189 mg/dl (70-99)
[2023-07-13] MEDS: GLUCOPHAGE 850 MG PO (11:58)
[2023-07-13] MEDS: NAMENDA 10 MG PO (11:58)
[2023-07-13] MEDS: PROTONIX 40 MG PO (11:58)
[2023-07-13] MEDS: KCL 10 MEQ PO (11:58)
[2023-07-13] MEDS: NOVOLOG FLEXPEN-LOW RESISTANCE 1 UNITS SC (13:17)
--- NOTE | 2023-07-13 13:55 | CM ---
Addendum entered by Suni Menjivar 07/13/23 15:02:
Ambulance supervisor picking crew scheduled for 1630 today; facility liaisonAlyssia, notified
Addendum entered by Suni Menjivar 07/13/23 14:39:
Per facility Alyssia velez, Bed available anytime today; updated clinicals sent via [facility] as requested
[employer] notified re: [facility] waiver; spoke with Urvashi Cespedes @ # [phone]
Plan: Discharge to [facility] today via ambulance
Report # [phone]

Original Note:
Met with patient's at bedside to discuss discharge plan
is agreeable with plan to discharge to [facility]
[employer] form explained; signed form @ [id number]
Plan: Discharge to [facility] today via ambulance if medically stable
--- NOTE | 2023-07-13 14:09 | W.PN.HOSP.TC ---
Today's Communication/Plan
-
Discharge to rehab
Assessment / Plan
Assessment / Plan
77-year-old male with Parkinson disease admitted with right lower extremity weakness uses a power chair for mobilization requires walker for transfer to bed has been having difficulties with this. He needs help transfer to the chair at home per
. He also had some neck numbness and tingling of the right forearm and first 3 fingers of the right hand.
CVS: S1-S2 normal
Chest: CTA B/L
Abdomen: Soft, NT / Bowel sounds present
Extremities: Edema of the right lower extremity
CONTACT PRINTER DRY FILM: Good distal muscle strength, mild paresthesia on the dorsal right arm and also lateral 3 fingers on the right, bilateral lower extremities, good hand grasp no pronator drift
No facial droop noted
Venous Doppler negative for DVT
# Asymmetric new right lower extremity weakness/right upper extremity numbness/right facial droop Noted by family
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
-Admitted to rule out CVA
-CT head shows no acute abnormality
-Good distal muscle strength bilateral lower extremity, mild paresthesia on the dorsal right arm and also lateral 3 fingers on the right.
-Continue Plavix
-PT/OT, case management
-Neurology evaluation appreciated. Feels that right lower extremity weakness is likely spinal stenosis related
Also may have carpal tunnel syndrome.
-Also needs EMG as outpatient for the right hand paresthesia
#Parkinson's disease
-Continue carbidopa-levodopa
#Mild dementia
-Continue donepezil, memantine
#Anxiety and Depression-Continue fluoxetine
#Chronic HFpEF
#Essential hypertension
-Continue losartan
-Continue metoprolol
-Continue terazosin
#Hyperlipidemia
-Continue statin, fenofibrate
#Spinal stenosis
Lumbar and also Cervical
#History of DVT-
With right lower extremity edema will get a Doppler
#Nephrolithiasis
#Type 2 diabetes
-Continue metformin, glimepiride, pioglitazone
-Accu checks and SSI
#Obesity
#Asbestosis
#Ex Smoker
#DNR/DNI
#DVT prophylaxis�SCDs
Discussed with patient's at bedside
Discussed with nursing
Discussed with case management
Patient would benefit from rehab /SNF to improve strength
Anticipated Discharge: Today
Subjective/Interval History
-
Date of Service: July 13, 2023
Objective Data
-
Vital Signs:
Vital Signs
Temp Pulse Resp BP Pulse Ox
98.2 F 63 18 128/67 93
07/13/23 11:55 07/13/23 11:55 07/13/23 11:55 07/13/23 11:55 07/13/23 11:55
I&O
07/12/23 07/13/23 07/14/23
06:59 06:59 06:59
Intake Total 120 / 120 900 / 900
Balance 120 / 120 900 / 900
--- NOTE | 2023-07-13 14:16 | W.DS.TRANS ---
Addendum entered and electronically signed by Radha Montoya MD 07/13/23 16:49:
Dictation- [id number]
Original Note:
DC Summary - Senior Billing Consultant
-
Discharge Instructions:
Discharge Diagnosis/Procedures Right lower extremity-proximal muscle weakness,
numbness and tingling of the right arm,
Parkinson disease, dementia, anxiety and
depression, chronic heart failure, hypertension,
hyperlipidemia, spinal stenosis, cervical spine
stenosis, nephrolithiasis, diabetes, obesity
Diet 2 Gram Sodium,Restrict fluids to 64 oz,Diabetic,
Carb Controlled
Activity As tolerated,With assistance
Driving Restrictions No driving
Other Services PT,OT
Specialty Instructions Weigh Daily
Instructions:
Stand-Alone Forms:
Changes to Home Medications: No
Discharge Medications:
DC Medications w/original date entered in [facility]
fluoxetine 20 mg capsule 20 mg PO DAILY Mental Health/Anxiety 11/12/12
glimepiride 1 mg tablet 1 mg PO DAILY Diabetes 03/08/18
memantine 10 mg tablet 10 mg PO BID@1100,1900 Neurological Condition 03/08/18
metformin 850 mg tablet 850 mg PO BID@1000,1900 Diabetes 03/08/18
pioglitazone 15 mg tablet 15 mg PO DAILY Diabetes 03/08/18
losartan 50 mg tablet 50 mg PO DAILY Blood pressure 11/12/18
clopidogrel 75 mg tablet 75 mg PO DAILY Blood clot prevention/tx 01/11/20
fenofibrate 54 mg tablet 54 mg PO DAILY High cholesterol 01/11/20
pantoprazole 40 mg tablet,delayed release 40 mg PO BID@1100,1900 Gastrointestinal issue 01/11/20
atorvastatin 20 mg tablet 10 mg PO DAILY High cholesterol 09/12/21
metoprolol succinate 50 mg tablet,extended release 24 hr 50 mg PO DAILY Blood pressure 09/12/21
donepezil 10 mg tablet 10 mg PO HS MEMORY 11/11/21
carbidopa 25 mg-levodopa 100 mg tablet 1 tab PO BID@0700,1500 PARKINSONS 11/16/21
carbidopa 25 mg-levodopa 250 mg tablet 1 tab PO 5/D@0700,11,15,19,23 PARKINSONS 11/16/21
cholecalciferol (vitamin D3) 50 mcg (2,000 unit) tablet 50 mcg PO DAILY Supplement 02/04/23
hyoscyamine sulfate 0.125 mg tablet 0.25 mg PO QPMPRN PRN secretions 02/04/23
hyoscyamine sulfate 0.125 mg tablet 0.375 mg PO BIDPRN PRN secretions 02/04/23
propylene glycol (PF) 0.6 % eye drops (Systane Complete PF) 1 drp ophthalmic (eye) HSPRN PRN dry eyes 07/11/23
Bifidobacterium infantis 4 mg capsule (Align) 4 mg PO Q48H Supplement #0 caps 07/13/23
potassium chloride 10 mEq tablet,extended release 10 meq PO BID@1100,1900 Electrolyte Repletion #0 tabs 07/13/23
propylene glycol (PF) 0.6 % eye drops (Systane Complete PF) 1 drp ophthalmic (eye) DAILY Eye condition #0 mL 07/13/23
terazosin 2 mg capsule 2 mg PO HS Blood pressure #0 caps 07/13/23
zolpidem 5 mg tablet 5 mg PO HS #2 tabs 07/13/23
Home Medication Changes
Pending Results: No
[2023-07-13 15:29] VITALS: BP 132/71
== END 2023-07-13 16:56 ==
LOC: 4 EAST ACU 17:03
PROVIDERS: Physician Assistant; ADMITTING PHYSICIAN Hospitalist; ATTENDING PHYSICIAN Hospitalist; CONSULT PHYSICIAN Student in an Organized Health Care Education/Training Program; EMERGENCY PHYSICIAN Student in an Organized Health Care Education/Training Program; FAMILY PHYSICIAN Family Medicine
DX: M62.81 Muscle weakness (generalized) (principal); R29.6 Repeated falls; R20.2 Paresthesia of skin; R20.0 Anesthesia of skin; G20.A1 Parkinson's disease without dyskinesia, without mention of fluctuations; F02.A4 Dementia in other diseases classified elsewhere, mild, with anxiety; F02.A3 Dementia in other diseases classified elsewhere, mild, with mood disturbance; I69.354 Hemiplegia and hemiparesis following cerebral infarction affecting left non-dominant side; E78.00 Pure hypercholesterolemia, unspecified; I11.0 Hypertensive heart disease with heart failure; I50.32 Chronic diastolic (congestive) heart failure; E66.9 Obesity, unspecified; M48.02 Spinal stenosis, cervical region; R60.0 Localized edema; R29.810 Facial weakness; E11.9 Type 2 diabetes mellitus without complications; Z87.891 Personal history of nicotine dependence; Z75.1 Person awaiting admission to adequate facility elsewhere; Z79.84 Long term (current) use of oral hypoglycemic drugs; Z79.02 Long term (current) use of antithrombotics/antiplatelets; Z87.442 Personal history of urinary calculi; Z68.33 Body mass index [BMI] 33.0-33.9, adult; Z91.040 Latex allergy status; Z88.5 Allergy status to narcotic agent; Z86.718 Personal history of other venous thrombosis and embolism; Z66 Do not resuscitate
CPT/HCPCS: 70450; 70551; 80053; 81003; 81015; 82962; 83036; 85025; 87070; 87086; 93971; 99285; G0378

== ENCOUNTER 2024-03-12 18:02 | Inpatient (IN) | payer MEDICARE, SELFPAY ==
[2024-03-12] VITALS (15 sets, daily range): BP systolic 95–163; BP diastolic 54–139; BMI 36.0; BMI 34.5
[2024-03-12 16:53] LABS: ALT (SGPT) 14 U/L (0-50); AST (SGOT) 80 U/L (17-59); Alkaline Phosphatase 117 U/L (38-126); Blood Urea Nitrogen 22 mg/dl (9-20); Carbon Dioxide 20 mmol/L (22-30); Chloride 97 mmol/L (98-107); Estimated Creatinine Clearance 110 ml/min; Glucose 365 mg/dl (70-99); Sodium 134 mmol/L (135-145); Total Bilirubin 0.6 mg/dl (0.2-1.3); Total Protein 6.5 g/dl (6.3-8.2); eGFR > 60.00
[2024-03-12 16:58] LABS: Potassium 4.3 mmol/L (3.5-5.1)
[2024-03-12 17:03] LABS: % Basophils 0.7 % (0-2); % Eosinophils 2.4 % (0-6); % Immature Granulocytes 2.1 % (0-0.5); % Lymphocytes 30.8 % (20.5-51.1); % Monocytes 6.5 % (1.7-9.3); % Neutrophils 57.5 % (42.2-75.2); Absolute Basophils 0.1 10^3/uL (0-0.2); Absolute Eosinophils 0.2 10^3/uL (0-0.7); Absolute Immature Granulocytes 0.2 10^3/uL (0-0.05); Absolute Lymphocytes 2.8 10^3/uL (1.2-3.4); Absolute Monocytes 0.6 10^3/uL (0.1-0.6); Absolute Neutrophils 5.2 10^3/uL (1.4-6.5); Hemoglobin 13.5 g/dL (13.0-18.0); Mean Corp Hgb Conc. 31.4 g/dL (33.0-37.0); Mean Corpuscular Hgb 29.6 pg (27.0-31.0); Mean Corpuscular Volume 94.3 fL (80.0-94.0); Mean Platelet Volume 11.6 fL (7.4-10.4); Nucleated Red Blood Cells % 0 % (-); Platelet Count 141 10^3/uL (130-400); Red Blood Cell Count 4.56 10^6/uL (4.70-6.10); Red Cell Dist. Width 12.2 % (11.5-14.5); White Blood Cell Count 9.1 10^3/uL (4.8-10.8)
--- NOTE | 2024-03-12 17:18 | ED.GENMED ---
History of Present Illness
General
Chief Complaint: Airway Problem
Source: patient, family and ambulance crew
Exam Limitations: clinical condition
Time Seen by Provider: 03/12/24 16:59
Nursing documentation reviewed up to this point in time: agreed with
History of Present Illness
History of Present Illness:
Patient presents to ED from home after choking episode while having shrimp. Per paramedics, when arrived at scene, patient was minimally responsive. Initial Heimlich maneuver unsuccessful. Shortly afterwards, patient was noted to have decreased
respiratory drive along with decreased heart rate. Questionable, whether or not there was actual loss of pulse. However, CPR was initiated for a brief period of time, during which time large piece of shrimp was removed by paramedics. Afterwards,
secondary to continual decreased respiratory drive and unresponsiveness, patient was intubated at scene prior to transfer to ED. Patient was given Versed and fentanyl after intubation for sedation. Upon arrival, patient is fully sedated and unable
to obtain any further information.
Past History
Past History
ED Past Medical History: CVA, HTN, Hypercholesterolemia, NIDDM and Other (Parkinson's disease)
ED Past Surgical History: Orthopedic
Social History
Tobacco: Former smoker
Personal:
Living: with family
Review of Systems
Review of Systems
Allergies reviewed?: Yes
Unable to obtain full review of systems at this time due to: intubated
All Other Systems: Not applicable
Phy Exam
Physical Exam
Physical Exam:
Physical Exam
General: intubated, sedated. afebrile
Head: nc/at.
Neck: supple. ETT in place
Heart: s1/s2 regular rate and rhythm, no murmur. equal radial pulses.
Lungs: clear bilaterally while being bagged.
Abdomen: normal bowel sounds. not tender.
Neuro: Unresponsive.
Skin: no rash
Extremities: no edema. no calf tenderness.
Course
Orders/Labs/Results
Orders:
Orders
03/12/24 16:26
CR Chest Portable - 1 View Stat
Comment:
Reason For Exam: SOB
Reason Study Needs to be Portable: Other
03/12/24 16:31
CBC/With Diff [Complete Blood Count/With Diff] Urgent
CMP [Comprehensive Metabolic Panel] Urgent
03/12/24 16:59
CT Head W/o Iv Contrast Urgent
Comment:
Reason For Exam: mental status change
03/12/24 17:39
Admit/Transfer Patient As Directed
Co-Sign Provider:
Level of Care: Inpatient admission
Assign to:: ICU
Physician / Group: [email or web address]
Diagnosis: AMS suspect encephalopathy, s/p Resp arrest with FB impaction
Reason for Hospitalization: AMS suspect encephalopathy, s/p Resp arrest with FB impaction
Expected length of stay greater than two midnights?: Yes
ELOS- Estimated Length of Stay in days: 3
I certify the patient meets the requirements for IP care: Yes
03/12/24 17:41
Code Status As Directed
Resuscitation Status: Full Code
03/12/24 17:55
Piperacillin/Tazo 3.375 Gram [Zosyn] 3.375 gram in 50 ml IV NOW
03/12/24 17:56
Vancomycin [Vancocin] 1,500 mg 0.9% Sodium Chloride 500 ml [Nss] 500 ml IV NOW
03/12/24 17:58
Electrocardiogram (*1) Urgent
Reason for Study: TIA/Stroke
03/12/24 18:00
Arterial Blood Gas Urgent
%Oxygen/Room Air: 90
03/12/24 18:40
0.9% Sodium Chloride 1000 ml [Nss] 1,000 ml IV 80 mls/hr
Bisacodyl [Dulcolax] 10 mg RECTAL [id number] PRN
Dextrose 50%-Water [Dextrose 50% Syringe] 12.5 grams IV [id number] PRN
Docusate W/Senna [Senokot-S] 1 tablet PO BIDPRN PRN
Enoxaparin Sodium [Lovenox] 40 mg SC QPM
Glucagon [GlucaGen] 1 mg IM PRN PRN
Ondansetron Injectable [Zofran] 4 mg IV Q6HPRN PRN
Polyethylene Glycol Powder [Miralax] 17 grams PO DAILYPRN PRN
03/12/24 18:40
Activity As Directed
Activity Level: With Assistance
Bedside Glucose Monitoring As Directed
Frequency: AC&HS
Additional Instructions:: Change to q6h if pt on TPN, tube feeding or not eating
Intake/ Output As Directed
Frequency: Per unit guidelines
Vital Signs As Directed
Frequency: Per unit guidelines
Weight As Directed
Frequency: Daily
DX Deep Vein Thrombosis Video Routine
03/12/24 20:00
VANCOMYCIN Pharmacy to Dose [VANCOCIN Pharmacy to Dose] 1 each Pharmacy To Prepare [Call Pharmacy To Prepare] 0 ml IV PER PROTOCOL
03/13/24 00:00
Piperacillin/Tazo 3.375 Gram [Zosyn] 3.375 gram in 50 ml IV Q6H
03/13/24 Breakfast
NPO
Allow oral meds: No
Allow clear liquids: No
NPO with Ice Chips: No
Complete Blood Count/No Diff IN AM
Comprehensive Metabolic Panel IN AM
Glycohemoglobin (HgbA1c) IN AM
03/13/24 07:30
Insulin Aspart Corrective Mod [Novolog Flexpen-Moderate Resistance] See Protocol SC AC
Abnormal Lab Results
03/12/24 03/12/24
16:31 18:00
RBC 4.56 L 10^6/uL
(4.70-6.10)
MCV 94.3 H fL
(80.0-94.0)
MCHC 31.4 L g/dL
(33.0-37.0)
MPV 11.6 H fL
(7.4-10.4)
Abs Immat Gran (auto) 0.2 H 10^3/uL
(0-0.05)
Immature Gran % 2.1 H %
(0-0.5)
pH 7.30 L
(7.35-7.45)
pO2 126 H mmHg
(83-108)
ABG O2 Sat (Measured) 99.2 H %
(94-98)
Sodium 134 L mmol/L
(135-145)
Chloride 97 L mmol/L
(98-107)
Carbon Dioxide 20 L mmol/L
(22-30)
BUN 22 H mg/dl
(9-20)
Glucose 365 H mg/dl
(70-99)
AST 80 H U/L
(17-59)
03/12/24 16:31
03/12/24 16:31
Vital Signs
Initial and Last Documented VS:
Initial Vital Signs
Pulse Resp BP Pulse Ox
104 16 95/78 98
03/12/24 16:24 03/12/24 16:24 03/12/24 16:24 03/12/24 16:24
Last Documented Vital Signs
Pulse Resp BP Pulse Ox
106 20 122/79 92
03/12/24 17:00 03/12/24 17:06 03/12/24 17:30 03/12/24 17:00
MDM/Problems Addressed
MDM/Problems Addressed:
Shortly after arrival in ED, patient noted to open his eyes spontaneously and moving extremities spontaneously, but not following commands. As patient excessively chewing on the ET tube, while being fully awake with stable vital signs, decision
made to extubate the patient.
Patient extubated at bedside by myself, along with assistance from nursing staff and respiratory therapist. Patient placed on oxygen via nasal cannula afterwards.
Unfortunately, while remaining awake, patient is not following any commands or making any purposeful movements. CT head ordered immediately.
Discussed with spouse and family at bedside. Awaiting more family members to arrive, to decide on CODE Status. He does have previous DNR/DNI directive, but in an acute setting, will allow family to make the decision at this time
CT head: NAD.
Pt remains awake but not following commands, protecting airway.
Pt evaluated by hospitalist () - requesting vanco/zosyn
Critical care statement: A total of 100 minutes of critical care time was provided for this patient. This includes management of unstable vital signs, evaluation of the patient at bedside, reviewing the patient's pertinent medical records, review of
old EKGs and review of pertinent medical records. This time with separate from time utilized to perform the aforementioned documented procedures
*Critical Care Note
Total Time (30-74mins, 75-104mins- exclusive of procedures): 100 min
ED Attending Note
-
Portions of this chart may have been created with voice recognition software.� Occasional wrong word or��sound alike� substitutions may have occurred due to the inherent limitations of voice recognition software.
Discharge Plan
Departure
Patient Disposition: Admit
Date of Disposition: 03/12/24
Time of Disposition: 17:25
Admit to: ICU
Presentation/result/management discussed w/ accepting MD/DO: Hospitalist
Discharge Problem:
Choking, Respiratory arrest, AMS (altered mental status)
Interventions
Interventions:
*General Assessment Last Done: 03/12/24 16:24
ED- Fall Risk Assessment Last Done: 03/12/24 16:38
ED- Pulmonary Assessment Last Done: 03/12/24 16:38
--- NOTE | 2024-03-12 17:33 | HPS.HSE ---
Family Physician
-
Family Physician:
Chief Complaint
-
AMS /p Resp arrest
History of Present Illness
I could not get any information from the patient AMS post self extubation
Information gathered by chart review and speaking with the ER staff.
HPI
77M HX Parkinson's disease, mild dementia, HFpEF, hypertension, hyperlipidemia, CVA with residual left-leg weakness, spinal stenosis, DVT, nephrolithiasis, diabetes, asbestosis, obesity seen at ER:
- S/P respiratory arrest at home after choking with large piece of shrimp
- Large piece of shrimp removed at home.
- Pt subsequently had decreased respiratory drive, prompting prehospital intubation.
- Pt has woken up and ETT removed.
Unfortunately, patient not following commands but protecting airway with stable vital signs.
Medical History
Past Medical History
Past Medical History: Reports Other ( Parkinson's disease, mild dementia, HFpEF, hypertension, hyperlipidemia, CVA with residual left-leg weakness, spinal stenosis, DVT, nephrolithiasis, diabetes, asbestosis, obesity)
Past Surgical History: Reports Other (Orthopedic)
Social History
Tobacco: Non-smoker
Alcohol: None
Drug: None
Family History
Family History: Not pertinent
Allergies / Home Medications
Allergies reflects when Allergies were last updated in [facility].
Home Medications with original date entered in [facility]
Allergy/Medication List:
Allergies
Allergy/AdvReac Type Severity Reaction Status Date / Time
codeine Allergy Unknown Verified 11/16/21 06:50
latex Allergy Unknown Verified 11/16/21 06:50
oxycodone HCl [From Percocet] Allergy Unknown Verified 11/16/21 06:50
Home Medications
fluoxetine 20 mg capsule 20 mg PO DAILY Mental Health/Anxiety 11/12/12
glimepiride 1 mg tablet 1 mg PO DAILY Diabetes 03/08/18
memantine 10 mg tablet 10 mg PO BID@1100,1900 Neurological Condition 03/08/18
metformin 850 mg tablet 850 mg PO BID@1000,1900 Diabetes 03/08/18
pioglitazone 15 mg tablet 15 mg PO DAILY Diabetes 03/08/18
losartan 50 mg tablet 50 mg PO DAILY Blood pressure 11/12/18
clopidogrel 75 mg tablet 75 mg PO DAILY Blood clot prevention/tx 01/11/20
fenofibrate 54 mg tablet 54 mg PO DAILY High cholesterol 01/11/20
pantoprazole 40 mg tablet,delayed release 40 mg PO BID@1100,1900 Gastrointestinal issue 01/11/20
zolpidem 5 mg tablet 5 mg PO HS Sleep 01/13/20
atorvastatin 20 mg tablet 10 mg PO DAILY High cholesterol 09/12/21
metoprolol succinate 50 mg tablet,extended release 24 hr 50 mg PO DAILY Blood pressure 09/12/21
donepezil 10 mg tablet 10 mg PO HS MEMORY 11/11/21
carbidopa 25 mg-levodopa 100 mg tablet 1 tab PO BID@0700,1500 P[facility]INSONS 11/16/21
carbidopa 25 mg-levodopa 250 mg tablet 1 tab PO 5/D@0700,11,15,19,23 P[facility]SONS 11/16/21
Bifidobacterium infantis 4 mg capsule (Align) 4 mg PO Q48H 02/04/23
cholecalciferol (vitamin D3) 50 mcg (2,000 unit) tablet 50 mcg PO DAILY Supplement 02/04/23
hyoscyamine sulfate 0.125 mg tablet 0.25 mg PO QPMPRN PRN secretions 02/04/23
hyoscyamine sulfate 0.125 mg tablet 0.375 mg PO BIDPRN PRN secretions 02/04/23
potassium chloride 10 mEq tablet,extended release 10 meq PO BID@1100,1900 07/11/23
propylene glycol (PF) 0.6 % eye drops (Systane Complete PF) 1 drp ophthalmic (eye) DAILY 07/11/23
propylene glycol (PF) 0.6 % eye drops (Systane Complete PF) 1 drp ophthalmic (eye) HSPRN PRN dry eyes 07/11/23
terazosin 2 mg capsule 2 mg PO HS 07/11/23
Review of Systems
-
Unable to obtain full review of systems at this time due to: Dementia
Physical Exam
Vital Signs
Vital Signs
Pulse Resp BP Pulse Ox
106 20 116/68 92
03/12/24 17:00 03/12/24 17:06 03/12/24 17:00 03/12/24 17:00
Physical Exam
General: No Conversant
HEENT: NormoCephalic, Moist mucous membranes and Atraumatic
Respiratory: Clear
Cardiac: S1/S2 and Regular Rhythm; No Murmur or Rub
GI: Soft, Non Tender, Non Distended and Normal Bowel Sounds; No Organomegaly
Rectal: Deferred by Provider
Musculoskeletal: No Clubbing, No Cyanosis and No Edema
Skin: No Rash
Neuro: Nonfocal/grossly intact
Laboratory Results
-
03/12/24 16:31
03/12/24 16:31
Laboratory Results
Total Bilirubin 0.6 mg/dl (0.2-1.3) 03/12/24 16:31
AST 80 U/L (17-59) H 03/12/24 16:31
ALT 14 U/L (0-50) 03/12/24 16:31
Alkaline Phosphatase 117 U/L (38-126) 03/12/24 16:31
Data Reviewed
-
CT Scan: Other (pending HCT )
Lab Data: Discussed with Physician
Old Records: Reviewed
Impression/Plan
-
Vital Signs
Pulse Resp BP Pulse Ox
106 20 116/68 92
03/12/24 17:00 03/12/24 17:06 03/12/24 17:00 03/12/24 17:00
Data
03/12/24
16:31
Sodium 134 L
Chloride 97 L
Carbon Dioxide 20 L
BUN 22 H
Creatinine 0.7
eGFR > 60.00
Glucose 365 H
AST 80 H
Unremarkable CBC
CXR pending
HCT pending
Last hospitalist admission: DATE OF ADMISSION: 07/11/2023 - DATE OF DISCHARGE: 07/13/2023
DISCHARGE DIAGNOSES: Right lower extremity-proximal muscle weakness, numbness and tingling of the right arm.
ASSESSMENT & PLAN
Pending Rx reconciliation
AMS suspect encephalopathy due to acute hypoxic event plus versed sedation for intubation in the filed
Underlying Dementia
- S/P respiratory arrest at home after choking with large piece of shrimp
- Large piece of shrimp removed at home.
- Pt subsequently had decreased respiratory drive, prompting prehospital intubation.
- Pt has woken up and ETT removed
- Pending HCT
- NPO for aspiration precaution
- IVF
- ICU consult,
- Neuro consult
DMT2
- hold metformin
- hold glimepiride
- hold pioglitazone
- add ISS low
Parkinson's disease
- holding carbidopa-levodopa
Mild dementia
- holding donepezil, memantine
- holding fluoxetine
Chronic HFpEF
- holding Losartan
Essential hypertension
- hold losartan
- hold metoprolol
- hold terazosin
Hyperlipidemia
- hold statin, fenofibrate
Spinal stenosis
History of DVT
Nephrolithiasis
Type 2 diabetes
Obesity
Asbestosis
Level of care dw Spouse and Son at bed side in the presence of ER attd. Opted for FULL CODE ( Prior advanced directives is DNI/DNR)
DVT prophylaxis�SCDs
Code: Full code
ICU
Comment: Total Critical Care Time__65___ minutes. I was immediately available to the patient and staff. I personally examined, reviewed labs, diagnostic images/reports, interpretations, treatment plans, discussed patient care with other providers
and family or caregivers (if patient is unable to make decisions), entered orders as appropriate and documented the medical record.
[2024-03-12 18:06] LABS: HCO3 22.6 mmol/L (21-28); O2 Saturation % 99.2 % (94-98); PCO2 46 mmHg (35-48); PO2 126 mmHg (83-108)
[2024-03-12] MEDS: ZOSYN 50 IV (18:10)
[2024-03-12] MEDS: ATIVAN 0.5 MG IV (18:19)
[2024-03-12] MEDS: NSS 1000 IV (18:59)
[2024-03-12] MEDS: LOVENOX 40 MG SC (18:59)
[2024-03-12 19:11] LABS: Glucose - Point of Care 336 mg/dl (70-99)
[2024-03-12] MEDS: VANCOCIN 540 MG IV (19:17)
[2024-03-12] MEDS: NOVOLOG FLEXPEN 10 UNITS SC (19:20)
--- NOTE | 2024-03-12 19:20 | PTCARENOTE ---
Pt received start of shift, HR SR on telemetry. Bedside handoff w/ previous shift RN. Pt initially on 15L Non-rebreather satting 98%. Breath sounds present b/l, shallow, diminished. NSS infusing. Pt very drowsy. Pt attempting to communicate - very
slow garbled speech. Pt urinating w/ assist from purewick. Doppler pedal pulses.
Pt quickly weaned to 5L NC. SPO2 98%. Family at bedside.
--- NOTE | 2024-03-12 19:24 | PHA.VAN.IN ---
Assessment
- Assessment
Renal Function: Appears similar to baseline
Concomitant Antimicrobials: ZOSYN
- Previous Dosing Experience
Previous Regimen: 1250MG IV BID@0000,1200 - ONLY 1 DOSE GIVEN
Date of Regimen: 02/06/23
Provided Trough of: UNKNOWN
Provided AUC of: 470 PREDICTED
Patient's SCR is: Similar to previous dosing experience
Patient's weight is: Elevated compared to previous dosing experience (02/06/23 WT = 108 KG)
AUC Dosing Plan
- Dosing Variables
Dosing Weight (kg): 109.1
Dosing CrCl (ml/min): 100
Vd coefficient (L/kg): 0.6
- Empiric Dosing
Initial / Loading Dose: 2GM
Maintenance Regimen: 1500MG IV Q12H
Estimated AUC (mcg*h/mL): 559
Estimated Peak (mcg*h/mL): 35.3
Estimated Trough (mcg/ml): 14.1
Estimated Half Life (H): 7.9
Pharmacokinetics Vancomycin I
- -
Patient Age: 78
Patient Sex: Male
Vancomycin Day #: 1
Indication: Pulmonary/Respiratory
Requesting Provider: PRINCESS
Height / Weight:
Height 5 ft 10 in
Actual Weight 109.1 kg
Pertinent Past Medical History: DM
- Vital Signs / Lab Results
Temp Pulse Resp BP Pulse Ox
98 F 98 20 131/66 100
03/12/24 18:56 03/12/24 19:00 03/12/24 19:00 03/12/24 19:00 03/12/24 19:00
Lab Results - Hematology
03/12/24
16:31
WBC 9.1
Lab Results - Chemistry
03/12/24
16:31
BUN 22 H
Creatinine 0.7
Estimated Creat Clear 110
Albumin 4.0
[2024-03-12 20:16] LABS: INR 1.01; PT 13.7 Sec (11.4-14.6)
[2024-03-12 20:17] LABS: Magnesium 1.3 mg/dl (1.6-2.3); Phosphorus 3.6 mg/dl (2.5-4.5)
[2024-03-12] MEDS: OFIRMEV 100 IV (21:29)
[2024-03-12] MEDS: MAGNESIUM SULFATE 50 IV (21:42)
--- NOTE | 2024-03-12 22:15 | PTCARENOTE ---
Pt continues to become less drowsy, with speech becoming more clear. 4L NC, SPO2 98%. Pt c/o burning pain in center of chest where compressions were done prior to hospital arrival. Spoke w/ [employer] Stevenson Mancia - one time dose ofirmev ordered and
administered - see MAR. Magnesium lab result low, 2g mag rider ordered and administered - see MAY. Purewick removed and condom cath #25 placed on pt.
[2024-03-12 23:23] LABS: Glucose - Point of Care 254 mg/dl (70-99)
[2024-03-13] VITALS (14 sets, daily range): BP systolic 104–152; BP diastolic 60–104; PULSE 75; O2SAT 93; BMI 34.6
[2024-03-13] MEDS: NOVOLOG FLEXPEN-MODERATE RESISTANCE 5 UNITS SC (00:05)
[2024-03-13] MEDS: ZOSYN 50 IV ×2 (00:08→05:07)
--- NOTE | 2024-03-13 01:00 | PTCARENOTE ---
Pt speech much improved. Pt AAOx4. 2L NC, SPO2 98%. Assessment otherwise unchanged. NSS still infusing.
[2024-03-13 03:14] LABS: Glucose - Point of Care 136 mg/dl (70-99)
[2024-03-13 05:01] LABS: Hematocrit 38.1 % (39.0-52.0); Hemoglobin 12.7 g/dL (13.0-18.0); Mean Corp Hgb Conc. 33.3 g/dL (33.0-37.0); Mean Corpuscular Hgb 29.9 pg (27.0-31.0); Mean Corpuscular Volume 89.6 fL (80.0-94.0); Mean Platelet Volume 11.5 fL (7.4-10.4); Platelet Count 153 10^3/uL (130-400); Red Blood Cell Count 4.25 10^6/uL (4.70-6.10); Red Cell Dist. Width 12.4 % (11.5-14.5); White Blood Cell Count 9.2 10^3/uL (4.8-10.8)
[2024-03-13 05:21] LABS: ALT (SGPT) 25 U/L (0-50); AST (SGOT) 65 U/L (17-59); Albumin 3.5 g/dl (3.5-5.0); Alkaline Phosphatase 77 U/L (38-126); Blood Urea Nitrogen 20 mg/dl (9-20); Calcium 8.9 mg/dl (8.4-10.2); Carbon Dioxide 29 mmol/L (22-30); Chloride 101 mmol/L (98-107); Estimated Creatinine Clearance 108 ml/min; Glucose 139 mg/dl (70-99); Magnesium 1.8 mg/dl (1.6-2.3); Potassium 4.1 mmol/L (3.5-5.1); Sodium 134 mmol/L (135-145); Total Bilirubin 0.6 mg/dl (0.2-1.3); Total Protein 5.9 g/dl (6.3-8.2); eGFR > 60.00
--- NOTE | 2024-03-13 05:37 | PTCARENOTE ---
Pt following commands, answering appropriately. Forgetful, frequently asks the same question but will sometimes remember he already asked once he hears the answer. On RA, SpO2 93-95%. AM magnesium 1.8, 1g rider - see MAR.
[2024-03-13] MEDS: MAGNESIUM SULFATE 100 IV (05:40)
[2024-03-13] MEDS: NOVOLOG FLEXPEN-MODERATE RESISTANCE SC (05:58)
[2024-03-13 06:08] LABS: Glucose - Point of Care 147 mg/dl (70-99)
[2024-03-13] MEDS: VANCOCIN 530 MG IV (06:51)
[2024-03-13 08:20] LABS: Glycohemoglobin (HgbA1c) 12.1 % (4.0-5.6)
--- NOTE | 2024-03-13 08:20 | W.PN.HOSP.TC ---
Today's Communication/Plan
-
PT/OT/CONTINUITY WRITER and d/c
Assessment / Plan
Assessment / Plan
78yo M with Parkinsons, Hx of CVA, demetia, HFpEF, HTN, HLD, spinal stenosis, Hx of DVT, DM, asbestosis was brought to the hospital intubated 2/2 respiratory failure after he has chocked on the shrimp. Shrimp was removed at field. Patient later
self-extubated and developed agitation with confusion, completely resolved next day. Was started on Abx for not clear reason with normal WNC count, no fevers, no pneumonia on XR and no UTI on the UA
Patient was under palliative care services at home and will continue to do so upon d/c, as discussed with his
A/P:
#Choking
CONTINUITY WRITER
#Acute delirium on dementia, uspecified
2/2 intubbation, transient hypoxia
resolved. Patient had reasonable conversation: remembers that he chocked, explained that he has a chronic limited ambulatory capacity, mostly bedrest and wheelshair, can do transfers using walker. WOuld like to go home for [facility] as his family
has a big green party planned
Head CT without new acute finsings
No need in neurologist
#chronic ambulatory deficiency
PT/OT for d/c planning
#DM type 2 with neuropathy
insulin SS, Accuchecks, DM diet when evaluated by CONTINUITY WRITER
#Parkinsons disease
#HLD
#Hx of CVA
#Essential HTN
#GERD
cont home meds
#mild transaminitis
resolving
most liekly 2/2 acute event
#Hypomagnesemia
repleted
DVT ppx Lovenox
DNI/DNR -discussed in details with
I have spent at least 59min reviewing chart, test results, communication with consultants and direct patient care
Anticipated Discharge: Within 24 hours
Subjective/Interval History
-
Date of Service: March 13, 2024
Objective Data
-
Labs:
Laboratory Results
03/12/24 03/13/24
19:56 04:32
WBC 9.2
Hgb 12.7 L
Hct 38.1 L
Plt Count 153
PT 13.7
INR 1.01
APTT 29.0
Sodium 134 L
Potassium 4.1
Chloride 101
Carbon Dioxide 29
BUN 20
Creatinine 0.7
Glucose 139 H
Calcium 8.9
Total Bilirubin 0.6
AST 65 H
ALT 25
Alkaline Phosphatase 77
Vital Signs:
Vital Signs
Temp Pulse Resp BP Pulse Ox
98.2 F 75 17 146/71 95
03/13/24 03:23 03/13/24 05:45 03/13/24 05:45 03/13/24 05:00 03/13/24 05:45
I&O
03/12/24 03/13/24 03/14/24
06:59 06:59 06:59
Intake Total 870 / 870
Output Total 620 / 620
Balance 250 / 250
Review of Systems
-
Unable to obtain full review of systems at this time due to: Dementia
History Source: Patient
Physical Exam
-
General: No Apparent Distress, Comfortable and Conversant
HEENT: Normocephalic
Respiratory: Clear to Auscultation
Cardiac: Regular Rhythm
GI: Soft, Nontender and Nondistended
Neuro: Awake, Alert, Oriented and AO x 3
Psych: Calm and Apparent Dementia
--- NOTE | 2024-03-13 08:52 | PTCARENOTE ---
0700 assumed care. Patient in bed. BP 146/104 SR 74 RR 16 POX 96RA. Denies pain Denies SOB
Juani D/severino Neuro consult cancelled.
--- NOTE | 2024-03-13 09:49 | PTOTSP ---
Speech Therapy Evaluation:
Pt present's with oropharyngeal swallow that is likely at/near baseline. Pt expressed no current swallow dysfunction and reported choking incident at home was an isolated event. Pt previously seen by ST services, in which it was recommended pt
consume regular and thin liquid diet. Pt with no overt s/sx of aspiration across extensive PO trials. Pt remains at an increased risk of aspiration due to PMH of Parkinson's, Dementia, and chronic limited ambulatory capacity at baseline, compounded
by recent intubation (1 day).
Recommend:
1. IDDSI Level 7 (regular) solids and thin liquids
2. FULL supervision with meals
3. Medications as tolerated
4. Ensure meat is chopped into bite-sized pieces
5. Aspiration and Reflux precautions
6. RADIOLOGICAL ENGINEER to follow
[2024-03-13] MEDS: NOVOLOG FLEXPEN-MODERATE RESISTANCE 1 UNITS SC (10:11)
[2024-03-13 10:24] LABS: Glucose - Point of Care 161 mg/dl (70-99)
[2024-03-13] MEDS: NSS IV (10:35)
--- NOTE | 2024-03-13 11:04 | PTCARENOTE ---
patient require complete care during transfer . Incontinent of bowel and bladder. able to swallow fluids and solids with no difficulties
--- NOTE | 2024-03-13 11:45 | W.DCSUMMARY ---
Discharge Summary
Discharge Data
Date of Admission: 03/12/24
Date of Discharge: 03/13/24
-
Pending Results: No
Hospital Course
78yo M with Parkinsons, Hx of CVA, demetia, HFpEF, HTN, HLD, spinal stenosis, Hx of DVT, DM, asbestosis was brought to the hospital intubated 2/2 respiratory failure after he has chocked on the shrimp. Shrimp was removed at field. Patient later
self-extubated and developed agitation with confusion, completely resolved next day. Was started on Abx for not clear reason with normal WNC count, no fevers, no pneumonia on XR and no UTI on the UA
Patient was under palliative care services at home and will continue to do so upon d/c, as discussed with his
As per Speech - cont regular texture/thin liquis diet, PT/OT evaluated patient, he needed the lift for transfers, but family is agreeable to provide nessesary assistance at home. Medically stable for d/c
I have spent at least 59min reviewing chart, test results, communication with consultants and direct patient care
Patient was managed for:
#Choking
#Acute delirium on dementia, unspecified
#chronic ambulatory deficiency
#DM type 2 with neuropathy
#Parkinsons disease
#HLD
#Hx of CVA
#Essential HTN
#GERD
#mild transaminitis
#Hypomagnesemia
Discharge Plan
-
Patient Disposition: Home (Routine Discharge)
Discharge Diagnosis/Procedures: choking
Diet: Low Sodium
Activity: As tolerated
Referrals:
UNKNOWN - PT DOES,NOT KNOW [Family Provider] -
Prescriptions:
Continued
fluoxetine 20 MG capsule
20 mg PO DAILY
pioglitazone 15 MG tablet
15 mg PO DAILY
metformin 850 MG tablet
850 mg PO BID
losartan 50 MG tablet
50 mg PO DAILY
fenofibrate 54 MG tablet
54 mg PO DAILY
clopidogrel 75 MG tablet
75 mg PO DAILY
pantoprazole 40 MG tablet,delayed release (DR/EC)
40 mg PO BID
atorvastatin 20 MG tablet
10 mg PO DAILY
carbidopa-levodopa 25-250 mg Tablet
1 tab PO TID
Patient Comments:
07/11/2023, patient's spouse states that patient takes one tablet of this medication @0700, 1100, 1500, 1900, and 2300.
carbidopa-levodopa 25-100 mg Tablet
1 tab PO BID
hyoscyamine sulfate 0.125 mg Tablet
0.375 mg PO BIDPRN PRN (Reason: secretions)
hyoscyamine sulfate 0.125 mg Tablet
0.25 mg PO HSPRN PRN (Reason: secretions)
cholecalciferol (vitamin D3) 50 mcg (2,000 unit) Tablet
50 mcg PO DAILY
zolpidem 5 mg Tablet
5 mg PO HS Qty: 2 0RF
terazosin 2 mg Capsule
2 mg PO HS Qty: 0 0RF
Align (B.infantis) 4 mg Capsule
4 mg PO Q48H Qty: 0 0RF
cyclosporine [Restasis] 0.05 % Dropperette
1 drp BOTH EYES Q12H
Systane (PF) 0.4-0.3 % Dropperette
1 drp BOTH EYES QID
potassium chloride 10 mEq tablet extended release
10 meq PO BID
Discharge Orders:
Discharge Patient (As Directed); Ordered 03/13/24
Ordered By: Tuan Reynolds
Discharge Date and Time
Print Language: TURKISH
--- NOTE | 2024-03-13 12:02 | CM ---
CM following re: discharge planning.
Reviewed pt's chart, met with pt. pt's spouse Alice and daughter Huma at bedside.
Pt is a 78 year old male, admitted with primary dx of Acute delirium on dementia, unspecified, 2/2 intubation, transient hypoxia.
Pt is not a great historian, information obtained from pt's spouse.
Pt livers with spouse in an [place] apartment, no steps, there is an elevator. Per spouse pt is dependent on care and family provides necessary care and support. pt is known to [facility] and following by Palliative care. Pty has a hospital bed,
wheelchair.
PT and OT evaluations noted - SNF level of care recommended. CM discussed it with the pt's family and pt's spouse stated pt went to rehab multiple times in the past and she is requested to bring her home today with [facility] and palliative care.
Pt's spouse requested power standard lift and per spouse she will pay if Medicare does not covers. Pt's spouse requested pt be transferred by ambulance.
A referral to [facility] made and [facility] liaison will order power standard lift with [employer].
IMM reviewed, placed on chart, pt has a copy.
[facility] at [phone].
Discharge order noted.
to arrange ambulance transport BLS. PMNC completed and left with [facility]
D/C plan: home today with [facility], palliative care and family support.
--- NOTE | 2024-03-13 13:30 | VNURNOTE ---
Home health liaison spoke to spouse Alice to discuss [facility] services, visit scheduling/frequency, homebound status and pet policy. Patient has had [facility] in the past and Alice is familiar with services. Alice understands home visits will be 1-2 times a
week to assess and teach medical management. Spouse aware a visiting nurse will contact her for start of care within 1-2 days after discharge from . [facility] Referral completed in care port.
--- NOTE | 2024-03-13 15:01 | SUR.OPER ---
1400 patient d/c home . Transportation provided by ambulance company . All d/c instructions provided to pt's . peripheral lines Rt and left removed
== END 2024-03-13 14:00 | disposition home health service (06) | DRG 205 ==
LOC: ICU 18:02
PROVIDERS: ADMITTING PHYSICIAN Internal Medicine; ATTENDING PHYSICIAN Internal Medicine; EMERGENCY PHYSICIAN Emergency Medicine
DX: T17.928A Food in respiratory tract, part unspecified causing other injury, initial encounter (principal); J96.01 Acute respiratory failure with hypoxia; I50.32 Chronic diastolic (congestive) heart failure; F02.A11 Dementia in other diseases classified elsewhere, mild, with agitation; F05 Delirium due to known physiological condition; I11.0 Hypertensive heart disease with heart failure; E11.40 Type 2 diabetes mellitus with diabetic neuropathy, unspecified; E78.00 Pure hypercholesterolemia, unspecified; E83.42 Hypomagnesemia; G20.A1 Parkinson's disease without dyskinesia, without mention of fluctuations; J61 Pneumoconiosis due to asbestos and other mineral fibers; I69.344 Monoplegia of lower limb following cerebral infarction affecting left non-dominant side; K21.9 Gastro-esophageal reflux disease without esophagitis; Z68.34 Body mass index [BMI] 34.0-34.9, adult; E66.9 Obesity, unspecified; Z88.5 Allergy status to narcotic agent; Z87.891 Personal history of nicotine dependence; Z86.718 Personal history of other venous thrombosis and embolism; Z79.84 Long term (current) use of oral hypoglycemic drugs; Z79.02 Long term (current) use of antithrombotics/antiplatelets; Z79.899 Other long term (current) drug therapy
CPT/HCPCS: 70450; 71045; 80053; 82805; 82962; 83036; 83735; 84100; 85025; 85027; 85610; 85730; 92610; 93005; 94002; 96365; 96375; 97163; 97167; 99284; 99292

== ENCOUNTER → 2024-04-04 16:00 | Outpatient (REF) | payer MEDICARE, SELFPAY ==
[2024-04-04 17:42] LABS: Urine Albumin Trace (Neg - Trace); Urine Bilirubin Negative (Negative); Urine Character Slightly Cloudy (Clear); Urine Color Yellow; Urine Glucose 3+ (Negative); Urine Ketone Negative (Negative); Urine Leukocyte 1+ (Negative); Urine Nitrite Negative (Negative); Urine Occult Blood 2+ (Negative); Urine Urobilinogen Negative (Neg - 1+)
[2024-04-04 18:00] LABS: Urine Squamous Cell 0-2 /LPF (Few)
[2024-04-04 18:01] LABS: Urine Bacteria Few (Negative)
[2024-04-04 18:02] LABS: Urine White Cell >100 /HPF (0-5)
== END ==
LOC: CLAB 16:00
PROVIDERS: ATTENDING PHYSICIAN Nurse Practitioner Family
DX: N39.0 Urinary tract infection, site not specified (principal); Z87.440 Personal history of urinary (tract) infections
CPT/HCPCS: 81003; 81015; 87077; 87086; 87186

== ENCOUNTER → 2024-04-24 13:28 | Outpatient (REF) | payer MEDICARE, SELFPAY ==
[2024-04-24 14:31] LABS: Urine Albumin Negative (Neg - Trace); Urine Bilirubin Negative (Negative); Urine Character Clear (Clear); Urine Color Yellow; Urine Glucose 4+ (Negative); Urine Ketone Negative (Negative); Urine Leukocyte Negative (Negative); Urine Nitrite Negative (Negative); Urine Occult Blood Negative (Negative); Urine Specific Gravity 1.015 (<1.030); Urine Urobilinogen Negative (Neg - 1+)
== END ==
LOC: REG 13:28
PROVIDERS: ATTENDING PHYSICIAN Internal Medicine Hospice and Palliative Medicine; FAMILY PHYSICIAN Family Medicine
DX: N39.0 Urinary tract infection, site not specified (principal)
CPT/HCPCS: 81003

== ENCOUNTER 2024-06-30 19:42 | Inpatient (IN) | payer MEDICARE, SELFPAY ==
[2024-06-30 15:40] VITALS: BP 145/77; BMI 32.5
[2024-06-30 15:53] LABS: % Eosinophils 2.8 % (0-6); % Immature Granulocytes 0.5 % (0-0.5); % Lymphocytes 20.3 % (20.5-51.1); % Monocytes 4.8 % (1.7-9.3); % Neutrophils 70.6 % (42.2-75.2); Absolute Basophils 0.1 10^3/uL (0-0.2); Absolute Eosinophils 0.2 10^3/uL (0-0.7); Absolute Lymphocytes 1.8 10^3/uL (1.2-3.4); Absolute Monocytes 0.4 10^3/uL (0.1-0.6); Absolute Neutrophils 6.1 10^3/uL (1.4-6.5); Hematocrit 42.4 % (39.0-52.0); Hemoglobin 14.2 g/dL (13.0-18.0); Mean Corp Hgb Conc. 33.5 g/dL (33.0-37.0); Mean Corpuscular Hgb 29.4 pg (27.0-31.0); Mean Corpuscular Volume 87.8 fL (80.0-94.0); Mean Platelet Volume 11.1 fL (7.4-10.4); Nucleated Red Blood Cells % 0 % (-); Platelet Count 183 10^3/uL (130-400); Red Blood Cell Count 4.83 10^6/uL (4.70-6.10); Red Cell Dist. Width 12.1 % (11.5-14.5); White Blood Cell Count 8.6 10^3/uL (4.8-10.8)
[2024-06-30 16:00] VITALS: BP 120/81
[2024-06-30 16:10] LABS: ALT (SGPT) < 10 U/L (0-50); AST (SGOT) 14 U/L (17-59); Albumin 4.1 g/dl (3.5-5.0); Alkaline Phosphatase 109 U/L (38-126); Blood Urea Nitrogen 23 mg/dl (9-20); Calcium 9.4 mg/dl (8.4-10.2); Carbon Dioxide 26 mmol/L (22-30); Chloride 99 mmol/L (98-107); Estimated Creatinine Clearance 91 ml/min; Glucose 291 mg/dl (70-99); Potassium 4.7 mmol/L (3.5-5.1); Sodium 135 mmol/L (135-145); Total Bilirubin 0.6 mg/dl (0.2-1.3); Total Protein 6.5 g/dl (6.3-8.2); eGFR > 60.00
[2024-06-30 16:52] LABS: Urine Albumin 2+ (Neg - Trace); Urine Bilirubin Negative (Negative); Urine Character Cloudy (Clear); Urine Color Yellow; Urine Glucose 4+ (Negative); Urine Ketone 1+ (Negative); Urine Leukocyte 3+ (Negative); Urine Nitrite Negative (Negative); Urine Occult Blood 1+ (Negative); Urine Urobilinogen Negative (Neg - 1+)
[2024-06-30 16:58] LABS: Urine Squamous Cell 0-2 /LPF (Few)
[2024-06-30 16:59] LABS: Urine Bacteria Many (Negative); Urine White Cell 30-40 /HPF (0-5)
[2024-06-30 17:07] LABS: COVID-19 Antigen Negative (Negative)
[2024-06-30 17:18] LABS: Troponin I < 0.012 ng/ml
[2024-06-30 17:21] VITALS: BP 138/77
--- NOTE | 2024-06-30 17:33 | ED.GENMED ---
History of Present Illness
General
Chief Complaint: Weakness
Source: patient and family
Exam Limitations: none
Time Seen by Provider: 06/30/24 15:41
Nursing documentation reviewed up to this point in time: agreed with
History of Present Illness
History of Present Illness:
78 y/o M
h/o parkinsons
htn,hld
here with increased falls over the past week
pt has slid tot he gorund, requiring EMS lift assists several times, cannot get him up
he doesn't walk at baseline anymore, transfers to a wheelchair but has a power suleman
is worried that he is becoming too difficult to care for at home
no recent fever, chills, ehadache, vomiting, chest pain, shortness of breath
the waekness doesn't really seem unilateral but may be a little owrs eo nthe L and worswe in the legs than arms
has significant resting tremor that is also chronic
no h/o frequent UTIS
Past History
Past History
ED Past Medical History: CVA, HTN, Hypercholesterolemia, NIDDM and Other
ED Past Surgical History: Orthopedic
Social History
Tobacco: Former smoker
Personal:
Living: with family
Review of Systems
Review of Systems
Allergies reviewed?: Yes
All Other Systems: Not applicable
Phy Exam
Physical Exam
Physical Exam:
GENERAL: Alert , resting tremor, significant
HEAD: NCAT
EYE: pupils equal and reactive, no nystagmus, photophobia
NECK: pt mostly turned to the L but can move his neck,
ENT: o/p clr, slightly dry mouth.
CARDIAC: Regular rate and rhythm . no edema
LUNGS: Clear breath sounds bilaterally, no acute respiratory distress, no wheezes/rales/rhonchi
ABDOMEN: Soft, without focal tenderness, no r/g, no cvat
NEUROLOGICAL: Alert and orientedx 4, cn intact, no facial asymmetry, UE strength intact
significant tremor/shakiness
parkisons
moderate weakness in legs L>R
SKIN: Warm and dry, skin intact.
MUSCULOSKELETAL: No edema, well perfused.
PSYCH: Normal and appropriate interaction.
Course
Orders/Labs/Results
Orders:
Orders
06/30/24 Dinner
IDDSI 6 - Soft & Bite Sized
At Your Request: Limited, Children'S Lunchroom Supervisor Required
06/30/24 15:48
Complete Blood Count/With Diff Urgent
Comprehensive Metabolic Panel Urgent
06/30/24 16:15
Electrocardiogram (*1) Urgent
Reason for Study: Fatigue / Weakness
CT Head W/o Iv Contrast Urgent
Comment:
Reason For Exam: weakness, falls, h/o parkinstons
EKG- Treatment ONCE
Straight cath- Treatment ONCE
06/30/24 16:43
COVID-19 Antigen Urgent
Source: Nasal Swab
Troponin I Urgent
Urinalysis Reflex To Culture Urgent
Date Specimen was Collected: 06/30/24
Time Specimen was Collected: 16:24
Urine Microscopic Reflex Cult Urgent
Influenza A+B Rapid Molecular Urgent
LUIZ Source: Nasal Swab
Specimen Description:
Urine Culture Urgent
LUIZ Source: U
Specimen Description:
Date Specimen was Collected: 06/30/24
Time Specimen was Collected: 16:24
06/30/24 17:58
CefTRIAXone [Rocephin] 2,000 mg IV NOW STA
06/30/24 18:01
Sterile Water [Sterile Water For Injection] 20 ml .[facility]
06/30/24 19:30
Admit/Transfer Patient As Directed
Co-Sign Provider:
Level of Care: Inpatient admission
Assign to:: Medical/Surgical
Physician / Group: hospitalist
Diagnosis: complicated cystitis
Reason for Hospitalization: weakness
Expected length of stay greater than two midnights?: Yes
ELOS- Estimated Length of Stay in days: 2
I certify the patient meets the requirements for IP care: Yes
PRN Pain Medication Management As Directed
May give lesser potent ordered pain med per pt: Yes
preference::
Protocol:: Medication orders for pain may be administered in a
manner that supports deferring to patient preference
when the pt is:
- Requesting an ordered lesser potent pain medication.
Least to most potent pain medications are defined
as: acetaminophen < NSAID < tramadol < opioids
(morphine, oxycodone, hydromorphone).
- Requesting a lesser dose of the same medication IF
ORDERED.
- Requesting a less intrusive route of administration
if both routes are prescribed by the provider (PO <
IV).
06/30/24 19:34
Code Status As Directed
Resuscitation Status: Full Code
06/30/24 20:09
Acetaminophen [Tylenol] 650 mg PO Q4HPRN PRN
Bisacodyl [Dulcolax] 10 mg RECTAL [id number] PRN
Docusate W/Senna [Senokot-S] 1 tablet PO BIDPRN PRN
METFORMIN HCl [Glucophage] 850 mg PO BID AT 0800,1700
Ondansetron Injectable [Zofran] 4 mg IV Q6HPRN PRN
Pantoprazole [Protonix] 40 mg PO BID
Polyethylene Glycol Powder [Miralax] 17 grams PO DAILYPRN PRN
Potassium Citrate [Urocit-K] 10 meq PO BID
Tramadol HCl [Ultram] 50 mg PO DAILYPRN PRN
cycloSPORINE [Restasis 0.05% Ophthalmic Emulsion] 1 drops BOTH EYES Q12
06/30/24 20:09
Case Management Consult ONCE
Case Management Consult: Discharge Planning
Activity As Directed
Activity Level: With Assistance
Bedside Glucose Monitoring As Directed
Frequency: AC&HS
Vital Signs As Directed
Frequency: Per unit guidelines
Pulse Ox/spot Check [RESP] Routine
Quantity: 1
Pt Eval And Treat Routine
Activity Level: With Assistance
DX Deep Vein Thrombosis Video Routine
06/30/24 21:28
Hyoscyamine Sulfate [Levsin] 0.125 mg PO DAILYPRN PRN
06/30/24 22:00
Artificial Tears (Pf) [Refresh Eye Drops (Pf)] 1 drops BOTH EYES QID
Carbidopa/Levodopa [Sinemet 25-250] 1 tablet PO TID
Hyoscyamine Sulfate [Levsin] 0.125 mg PO TID
Terazosin [Hytrin] 2 mg PO HS
Zolpidem Tartrate [Ambien] 5 mg PO HS
07/01/24 06:30
Basic Metabolic Panel IN AM
Complete Blood Count/No Diff IN AM
07/01/24 07:00
Carbidopa/Levodopa [Sinemet 25-100] 1 tablet PO BID@0700,1500
07/01/24 07:30
Insulin Aspart Corrective Low [Novolog Flexpen-Low Resistance] See Protocol SC AC
07/01/24 08:00
Atorvastatin [Lipitor] 10 mg PO DAILY
Clopidogrel Bisulfate [Plavix] 75 mg PO DAILY
Fenofibrate [Tricor] 48 mg PO DAILY
Fluoxetine HCl [Prozac] 20 mg PO DAILY
Losartan [Cozaar] 50 mg PO DAILY
Magnesium l-Lactate [Mag-Tab Sr] 84 mg PO DAILY
Pioglitazone HCl [Actos] 15 mg PO DAILY
07/01/24 18:00
CefTRIAXone [Rocephin] 2,000 mg IV Q24H
Enoxaparin Sodium [Lovenox] 40 mg SC QPM
Abnormal Lab Results
06/30/24 06/30/24
15:48 16:43
MPV 11.1 H fL
(7.4-10.4)
Lymphocytes % 20.3 L %
(20.5-51.1)
BUN 23 H mg/dl
(9-20)
Glucose 291 H mg/dl
(70-99)
AST 14 L U/L
(17-59)
Urine Ketones 1+ A
(Negative)
Ur Occult Blood Reflex 1+ A
(Negative)
Leukocyte Esterase Rfl 3+ A
(Negative)
Urine RBC 3-6 A /HPF
(0-2)
Urine WBC (Reflex) 30-40 A /HPF
(0-5)
Urine Bacteria (Reflex) Many A
(Negative)
Urine Glucose 4+ A
(Negative)
Urine Albumin (Reflex) 2+ A
(Neg - Trace)
06/30/24 15:48
06/30/24 15:48
Vital Signs
Initial and Last Documented VS:
Initial Vital Signs
Temp Pulse Resp BP Pulse Ox
36.8 C 80 19 145/77 97
06/30/24 15:40 06/30/24 15:40 06/30/24 15:40 06/30/24 15:40 06/30/24 15:40
Last Documented Vital Signs
Temp Pulse Resp BP Pulse Ox
36.6 C 72 21 160/89 97
07/01/24 08:31 07/01/24 08:31 07/01/24 08:31 07/01/24 08:31 07/01/24 08:31
MDM/Problems Addressed
Differential Diagnosis Includes:
uti, cva, dehydration, parkinsons, deconditioning
MDM/Problems Addressed:
78 y/o M
h/o parkinsons, baseline nonambulatory (slides to the ground)
multiple falls this week without injuyr
can't lift him up, ems to the house multiple times
most recent last night
has a resting tremor
b/l LE weakness, soudns chronic
Urine POS for uti
ct head neg
iv abx, pt/ot; probably will need SNF
*Critical Care Note
Total Time (30-74mins, 75-104mins- exclusive of procedures): Not Applicable
ED Attending Note
-
Portions of this chart may have been created with voice recognition software.� Occasional wrong word or��sound alike� substitutions may have occurred due to the inherent limitations of voice recognition software.
Discharge Plan
Departure
Patient Disposition: Admit
Date of Disposition: 06/30/24
Time of Disposition: 17:57
Admit to: Med/Surg
Presentation/result/management discussed w/ accepting MD/DO: Hospitalist
Condition: Fair
Covid-19: Not Applicable
Discharge Problem:
UTI (urinary tract infection), Parkinson's disease, Frequent falls
Interventions
Interventions:
*Risk Screen - Suicide Last Done: 06/30/24 15:44
*General Assessment Last Done: 06/30/24 15:44
*Neglect/Abuse Screening Last Done: 06/30/24 15:44
*ED- Fall Risk Assessment Last Done: 06/30/24 15:44
*ED COVID-19 Vaccine History Last Done: 06/30/24 21:17
*Nursing Disposition Last Done: 06/30/24 20:01
ED- Cardiac Assessment Last Done: 06/30/24 16:00
ED- Neurological Assessment Last Done: 06/30/24 16:00
ED- Pulmonary Assessment Last Done: 06/30/24 16:00
Discharge Date and Time
Discharge Date/Time: 06/30/24 20:01
[2024-06-30 18:00] VITALS: BP 138/59
[2024-06-30] MEDS: ROCEPHIN 2000 MG IV (18:02)
--- NOTE | 2024-06-30 19:08 | HPS.HSE ---
Family Physician
-
Family Physician: ANDREW Helms
Chief Complaint
-
Weakness
History of Present Illness
This is a 78-year-old male with past medical history significant for Parkinson's disease, he is essentially immobile at this time, itz-xozubzz-zowmbxykp diabetes, hypertension, hyperlipidemia, obesity, nephrolithiasis, prior TIAs, dysphagia and
recurrent admissions for weakness and altered mental status who presents to the emergency department with weakness.
Patient is a fairly poor historian but he does endorse mild dysuria for the last 2 weeks. He also endorsed some bilateral inguinal pain. Denies fevers or chills. He denies any shortness of breath chest pain palpitations lightheadedness or
dizziness. Family reports that his appetite has been normal and his p.o. intake is the same. Family reports that he has weakness with transitioning. He does not ambulate. He uses a wheelchair and mostly stays in bed. However when he tried to
transition him he was able to stand and help with the transition but more recently he could not even doing any pain sleeping off of the bed off of the chair to the ground and the spouse was unable to assist. He has had multiple calls to EMS for
assist over the last few weeks. He denies any numbness or tingling. He has chronic incontinence and uses depends. He denies diarrhea constipation nausea or vomiting.
In the emergency department patient was afebrile, blood pressure was 140/77 with a pulse of 80 and satting 95% on room air. ECG shows normal sinus rhythm at rate of 74 and no acute interval changes. CBC was unremarkable. Electrolytes were all
normal with normal BUN and creatinine. Glucose was 290. CT of the head was negative. UA was markedly positive.
Medical History
Past Medical History
Past Medical History: Reports Other ( Parkinson's disease, mild dementia, HFpEF, hypertension, hyperlipidemia, CVA with residual left-leg weakness, spinal stenosis, DVT, nephrolithiasis, diabetes, asbestosis, obesity)
Past Surgical History: Reports Other (Orthopedic)
Social History
Tobacco: Non-smoker
Alcohol: None
Drug: None
Personal:
Living: With Family
Employment: Retired
Family History
Family History: Not pertinent
Allergies / Home Medications
Allergies reflects when Allergies were last updated in [facility].
Home Medications with original date entered in [facility]
Allergy/Medication List:
Allergies
Allergy/AdvReac Type Severity Reaction Status Date / Time
codeine Allergy Unknown Verified 11/16/21 06:50
latex Allergy Unknown Verified 11/16/21 06:50
oxycodone HCl [From Percocet] Allergy Unknown Verified 11/16/21 06:50
Home Medications
fluoxetine 20 mg capsule 20 mg PO DAILY Mental Health/Anxiety 11/12/12
glimepiride 1 mg tablet 1 mg PO DAILY Diabetes 03/08/18
memantine 10 mg tablet 10 mg PO BID@1100,1900 Neurological Condition 03/08/18
metformin 850 mg tablet 850 mg PO BID@1000,1900 Diabetes 03/08/18
pioglitazone 15 mg tablet 15 mg PO DAILY Diabetes 03/08/18
losartan 50 mg tablet 50 mg PO DAILY Blood pressure 11/12/18
clopidogrel 75 mg tablet 75 mg PO DAILY Blood clot prevention/tx 01/11/20
fenofibrate 54 mg tablet 54 mg PO DAILY High cholesterol 01/11/20
pantoprazole 40 mg tablet,delayed release 40 mg PO BID@1100,1900 Gastrointestinal issue 01/11/20
zolpidem 5 mg tablet 5 mg PO HS Sleep 01/13/20
atorvastatin 20 mg tablet 10 mg PO DAILY High cholesterol 09/12/21
metoprolol succinate 50 mg tablet,extended release 24 hr 50 mg PO DAILY Blood pressure 09/12/21
donepezil 10 mg tablet 10 mg PO HS MEMORY 11/11/21
carbidopa 25 mg-levodopa 100 mg tablet 1 tab PO BID@0700,1500 PARKINSONS 11/16/21
carbidopa 25 mg-levodopa 250 mg tablet 1 tab PO 5/D@0700,11,15,19, PARKINSONS 11/16/21
Bifidobacterium infantis 4 mg capsule (Align) 4 mg PO Q48H 02/04/23
cholecalciferol (vitamin D3) 50 mcg (2,000 unit) tablet 50 mcg PO DAILY Supplement 02/04/23
hyoscyamine sulfate 0.125 mg tablet 0.25 mg PO QPMPRN PRN secretions 02/04/23
hyoscyamine sulfate 0.125 mg tablet 0.375 mg PO BIDPRN PRN secretions 02/04/23
potassium chloride 10 mEq tablet,extended release 10 meq PO BID@1100,1900 07/11/23
propylene glycol (PF) 0.6 % eye drops (Systane Complete PF) 1 drp ophthalmic (eye) DAILY 07/11/23
propylene glycol (PF) 0.6 % eye drops (Systane Complete PF) 1 drp ophthalmic (eye) HSPRN PRN dry eyes 07/11/23
terazosin 2 mg capsule 2 mg PO HS 07/11/23
Review of Systems
-
Unable to obtain full review of systems at this time due to: Dementia
Constitutional: Reports No Symptoms
EENT: Reports No Symptoms
Respiratory: Reports No Symptoms
Cardiac: Reports No Symptoms
Abdomen/GI: Reports No Symptoms
: Reports No Symptoms
Musculoskeletal: Reports No Symptoms
Skin: Reports No Symptoms
Neurological: Reports No Symptoms
Endocrine: Reports No Symptoms
Hematologic/Lymphatic: Reports No Symptoms
Psych: Reports No Symptoms
Physical Exam
Vital Signs
Vital Signs
Temp Pulse Resp BP Pulse Ox
98.3 F 80 24 138/77 95
06/30/24 15:40 06/30/24 17:45 06/30/24 17:45 06/30/24 17:21 06/30/24 17:45
Physical Exam
General: No Apparent Distress, Comfortable and Good Appetite
HEENT: NormoCephalic, Anicteric, Moist mucous membranes and Atraumatic
Respiratory: Clear
Cardiac: S1/S2 and Regular Rhythm
Breast: Deferred by me
GI: Soft, Non Tender, Non Distended and Normal Bowel Sounds
Rectal: Deferred by Provider
Genito-urinary: No costovertebral tender
Musculoskeletal: No Clubbing, No Cyanosis and No Edema
Skin: Warm and Dry
Neuro: Alert, Oriented, Cranial Nerves Intact and Other (bilateral lower extremity weakness)
Hematologic/Lymphatic: No Lymphadenopathy
Psych: Calm
Laboratory Results
-
06/30/24 15:48
06/30/24 15:48
Laboratory Results
Total Bilirubin 0.6 mg/dl (0.2-1.3) 06/30/24 15:48
AST 14 U/L (17-59) L 06/30/24 15:48
ALT < 10 U/L (0-50) 06/30/24 15:48
Alkaline Phosphatase 109 U/L (38-126) 06/30/24 15:48
Troponin I < 0.012 ng/ml 06/30/24 16:43
Data Reviewed
-
CT Scan: Report Reviewed by me
Medical Tests (Nuc Med, Echo, EKG etc): Image Personally Visualized and interpreted
Lab Data: Labs Reviewed by me
Old Records: Reviewed
Impression/Plan
-
IMPRESSION:
78-year-old male with past medical history of Parkinson's disease, severe mobility deficit, hypertension, hyperlipidemia, prior TIAs, mmt-iohsizf-wuwwqitgi diabetes, BPH, prior UTIs comes to the emergency department with weakness and complaints of
dysuria for about 2 weeks but without fevers or chills. UA is markedly positive. He has no systemic findings of pyelonephritis. Trace hematuria. Picture consistent with cystitis and weakness associated with that.
PLAN:
1. UTI - Dysuria with + U/A. Urinary incontinence and BPH are risk factors. No evidence of pyelonephritis.
- admit to med/surg
- urine cultures sent
- based on prior cultures, IV ceftriaxone appropriate for now
- gentle hydration
- continue terazosin
2. Ambulatory dysfunction - Chronic, now unable to assist with transition due to weakness likely 2/2 UTI
- PT eval
- CM for possible SNF
3. DM II
-metformin 850 bid
- pioglitazone
- sliding scale insulin
4. PD
- carbidopa-levodpa
- continue fluoxetine
- zolpidem hs
- soft bite size diet
5. HTN
- continue losartan
6. TIA/CVA
- cotninue plavix and atorvastatin
DVT PPX - lovenox sq
COde status - full code
--- NOTE | 2024-06-30 20:30 | PTCARENOTE ---
Patient arrived from ED via stretcher, transferred from stretcher to bed with assist from patient's son (family preferred). Patient alert and oriented, no complaints at this time. VSS. Patient very soft spoken, hx Parkinson's. Weakness present to
B/L UEs per patient - hx stroke/TIA. Patient resting comfortably at this time. Call kuo in reach. Will continue to monitor.
[2024-06-30 20:33] VITALS: BMI 32.3
[2024-06-30 20:34] VITALS: BP 175/90
[2024-06-30] MEDS: AMBIEN 5 MG PO (21:48)
[2024-06-30] MEDS: PROTONIX 40 MG PO (21:49)
[2024-06-30] MEDS: REFRESH EYE DROPS (PF) 1 DROPS BOTH EYES (21:49)
[2024-06-30] MEDS: HYTRIN 2 MG PO (21:49)
[2024-06-30] MEDS: RESTASIS 0.05% OPHTHALMIC EMULSION 1 DROPS BOTH EYES (21:49)
[2024-06-30] MEDS: GLUCOPHAGE 850 MG PO (21:50)
[2024-06-30] MEDS: LEVSIN 0.125 MG PO (21:50)
[2024-06-30] MEDS: SINEMET 25-250 1 TABLET PO (21:50)
[2024-06-30 21:54] LABS: Glucose - Point of Care 325 mg/dl (70-99)
[2024-06-30 23:00] VITALS: BP 162/80
[2024-07-01 06:00] VITALS: BMI 32.3
[2024-07-01 07:56] LABS: Blood Urea Nitrogen 20 mg/dl (9-20); Calcium 9.4 mg/dl (8.4-10.2); Carbon Dioxide 26 mmol/L (22-30); Chloride 99 mmol/L (98-107); Estimated Creatinine Clearance 104 ml/min; Glucose 268 mg/dl (70-99); Potassium 4.4 mmol/L (3.5-5.1); Sodium 134 mmol/L (135-145); eGFR > 60.00
[2024-07-01 07:57] LABS: Hematocrit 41.6 % (39.0-52.0); Hemoglobin 13.8 g/dL (13.0-18.0); Mean Corp Hgb Conc. 33.2 g/dL (33.0-37.0); Mean Corpuscular Hgb 29.2 pg (27.0-31.0); Mean Corpuscular Volume 88.1 fL (80.0-94.0); Mean Platelet Volume 11.7 fL (7.4-10.4); Platelet Count 175 10^3/uL (130-400); Red Blood Cell Count 4.72 10^6/uL (4.70-6.10); White Blood Cell Count 8.2 10^3/uL (4.8-10.8)
[2024-07-01 08:22] LABS: Glucose - Point of Care 270 mg/dl (70-99)
[2024-07-01 08:31] VITALS: BP 160/89
[2024-07-01] MEDS: ACTOS 15 MG PO (09:04)
[2024-07-01] MEDS: GLUCOPHAGE 850 MG PO ×2 (09:04→18:43)
[2024-07-01] MEDS: PROZAC 20 MG PO (09:04)
[2024-07-01] MEDS: LEVSIN 0.125 MG PO ×3 (09:04→21:35)
[2024-07-01] MEDS: PROTONIX 40 MG PO ×2 (09:04→21:31)
[2024-07-01] MEDS: RESTASIS 0.05% OPHTHALMIC EMULSION 1 DROPS BOTH EYES ×2 (09:05→21:31)
[2024-07-01] MEDS: REFRESH EYE DROPS (PF) 1 DROPS BOTH EYES ×4 (09:05→21:36)
[2024-07-01] MEDS: COZAAR 50 MG PO (09:05)
[2024-07-01] MEDS: MAG-TAB SR 84 MG PO (09:05)
[2024-07-01] MEDS: PLAVIX 75 MG PO (09:05)
[2024-07-01] MEDS: TRICOR 48 MG PO (09:05)
[2024-07-01] MEDS: LIPITOR 10 MG PO (09:05)
[2024-07-01] MEDS: SINEMET 25-100 1 TABLET PO ×2 (09:36→15:48)
--- NOTE | 2024-07-01 09:50 | PTOTSP ---
Speech Therapy
Presentation: Patient's voice appeared to be weak/ aphonic which patient states has been his baseline for a while. Patient was oriented and participatory.
Previous ST:
11/16/18 VSE: NDD Level 3 and thin liquids diet (see note)
03/13/24 ST: regular consistency solids and thin liquids (see note)
Swallowing Function: TELEVISION NEWS REPORTER observed patient with bites of IDDSI 6 solids and sips of thin liquids (straw) from his tray in which patient appeared to tolerate as he did not exhibit any overt clinical s/sx of aspiration or difficulty with mastication/
manipulation. Patient is a full assist/ supervision with PO. Of note, patient was not interested in harder solid trials due to back pain and patient did not have his dentures at the hospital.
TELEVISION NEWS REPORTER also observed patient RN administer medications whole with puree solids.
Recommendations:
1) Continuation of IDDSi 6 and thin liquids
2) FULL assist and supervision with PO
3) PO only when alert
4) Medications as tolerated
5) Consideration of voice evaluation given aphonic speech
Plan: TELEVISION NEWS REPORTER will continue to follow to ensure tolerance; pending hospitalization.
[2024-07-01] MEDS: SINEMET 25-250 1 TABLET PO ×3 (10:03→21:36)
[2024-07-01] MEDS: NOVOLOG FLEXPEN-LOW RESISTANCE 3 UNITS SC (10:15)
--- NOTE | 2024-07-01 10:55 | W.PN.HOSP.TC ---
Today's Communication/Plan
-
see outlined plan
Assessment / Plan
Assessment / Plan
Assessment:
UTI
- continue Rocephin, day 1 pending cultures
- continue IVF
R>L arm numbness, acute on chronic
- MRI brain and MRI c-spine ordered
- known spinal stenosis
Ambulatory dysfunction - Chronic, now unable to assist with transition due to weakness likely 2/2 UTI
- PT eval
- CM for possible SNF
DM II
- metformin 850 bid
- pioglitazone
- sliding scale insulin
Parkinson disease with RLE dyskinesias
- carbidopa-levodopa
- continue fluoxetine
- zolpidem hs
- ST eval
- Neuro eval for dyskinesia symptom control
Essential HTN
- continue losartan
TIA/CVA
- continue Plavix and atorvastatin
DVT ppx: Lovenox
Code: Full
Anticipated Discharge: > 48 hours
Subjective/Interval History
-
Date of Service: July 01, 2024
patient reports bilateral hand numbness R>L
Also RLE dyskinesias
Admitted for UTI
Objective Data
-
Labs:
Laboratory Results
07/01/24
06:30
WBC 8.2
Hgb 13.8
Hct 41.6
Plt Count 175
Sodium 134 L
Potassium 4.4
Chloride 99
Carbon Dioxide 26
BUN 20
Creatinine 0.7
Glucose 268 H
Calcium 9.4
Vital Signs:
Vital Signs
Temp Pulse Resp BP Pulse Ox
97.8 F 72 21 160/89 97
07/01/24 08:31 07/01/24 08:31 07/01/24 08:31 07/01/24 08:31 07/01/24 08:31
I&O
06/30/24 07/01/24 07/02/24
06:59 06:59 06:59
Intake Total 120 / 120
Balance 120 / 120
Physical Exam
-
General: Appears Chronically Ill
HEENT: Normocephalic and Atraumatic
Respiratory: Negative Wheezes
Cardiac: Regular Rhythm
GI: Soft and Nontender
Neuro: AO x 3 and Other (R>L arm numbness, RLE dyskinesia)
Psych: Calm
Data Reviewed
-
Total Time Spent with Patient (in minutes): 45
Labs: Labs Reviewed by me
--- NOTE | 2024-07-01 11:39 | CM ---
Patient seen at bedside with Alice
IA completed
CM consult completed - dispo planning
Await PT/OT evals
Dx: complicated cystitis
PMH: Parkinsons
Lives in an apartment with , elevator accesss
PLOF: Power w/c
DME: Pwer w/c, walker, hospital bed, transport w/c
Information given on private cg to -states had in past
Has had [facility] in past, [facility]F in past - Prefers [facility] if SNF
PCP: Genesis Reza
Pharmacy: [place], [place] [place]
PLAN: Pending PT/OT evals, anticipate SNF, will continue to follow for needs
[2024-07-01 11:49] LABS: Glucose - Point of Care 307 mg/dl (70-99)
[2024-07-01] MEDS: NOVOLOG FLEXPEN-LOW RESISTANCE 4 UNITS SC (12:55)
[2024-07-01] MEDS: NOVOLOG FLEXPEN-MODERATE RESISTANCE SC (13:28)
[2024-07-01 15:01] VITALS: BP 136/77; BP 154/82; PULSE 81
[2024-07-01 15:39] VITALS: BP 136/77; BP 154/82; PULSE 81; O2SAT 98
[2024-07-01 16:03] VITALS: BP 155/87
[2024-07-01 17:13] LABS: Glucose - Point of Care 256 mg/dl (70-99)
[2024-07-01] MEDS: LOVENOX 40 MG SC (18:43)
[2024-07-01] MEDS: STERILE WATER FOR INJECTION 20 ML IV (18:44)
[2024-07-01] MEDS: ROCEPHIN 2000 MG IV (18:44)
--- NOTE | 2024-07-01 18:59 | CON.NEURO ---
Neuro Assessment/Plan
Assessment
left sided hemidyskinesias x4 months, most likely sequela of right thalamic stroke but can also be seen with tumors or diabetes
initially responded to Ativan 0.5 then 1 mg but now ineffective
will try Valium 2 mg BID
patient and family requesting MRI brain and cervical spine which were ordered at admission though this will not change the management; stroke secondary prevention will be the same, and he would be a poor candidate for further spinal surgery will
need sedation of the dyskinesias to get the scan
stroke secondary prevention Plavix 75, Lipitor 10
also requesting further a-fib screening which I do not do not believe is necessary, requesting cardiology consult Dr Salinas
Parkinson's, continue Sinemet 5/day
Consultation
Order
Date of Consultation: 07/01/24
Requesting Provider: Chico Marquez
Reason for Consult: Right > L arm numbness
Subjective/Objective
Subjective Data
Date of Service: July 01, 2024
He is a 78 year old man with longstanding history of Parkinson's disease, spinal stenosis, s/p C5-C6 ACDF, chronic stroke left Lentiform nucleus, baseline in bed more than power wheelchair, assisting with transitions; recently difficulty assisting
in transitions. has developed 4 months of left sided ricki dyskinesias, affecting left face, neck, arm, leg; most severe in the left leg; patient feels an 'internal tremor' causing this. Initially responded to Ativan 0.5, and then Ativan 1mg however
both doses eventually stopped working
Objective Data
Vital Signs
Temp Pulse Resp BP Pulse Ox
36.8 C 83 21 155/87 98
07/01/24 16:03 07/01/24 16:03 07/01/24 16:03 07/01/24 16:03 07/01/24 16:03
Lab Results
07/01/24 06:30
07/01/24 06:30
Sodium 134 mmol/L (135-145) L 07/01/24 06:30
Potassium 4.4 mmol/L (3.5-5.1) 07/01/24 06:30
BUN 20 mg/dl (9-20) 07/01/24 06:30
Glucose 268 mg/dl (70-99) H 07/01/24 06:30
Calcium 9.4 mg/dl (8.4-10.2) 07/01/24 06:30
Patient Allergies
doxycycline Allergy (Intermediate, Verified 07/01/24 11:12)
Rash
codeine Allergy (Verified 11/16/21 06:50)
Unknown
latex Allergy (Verified 11/16/21 06:50)
Unknown
oxycodone HCl [From Percocet] Allergy (Verified 11/16/21 06:50)
Unknown
Physical Exam
-
[place] and alert, speech soft, clear
masked fascies, left facial droop
b/l UE 4/5, b/l LE 3/5 strength
+cogwheel rigidity
constant dyskinesia left face, head turn left, left leg > left arm
Medications
-
Active Medications
Generic Name Dose Route Start Last Admin
Trade Name Freq PRN Reason Stop Dose Admin
Acetaminophen 650 mg 06/30/24 20:09
Acetaminophen 325 Mg Tablet PO 07/28/24 20:08
Q4HPRN PRN
mild pain/[place]/temp> 100.4F
Artificial Tears 1 drops 06/30/24 22:00 07/01/24 18:44
Artificial Tears Pf (Refresh) 10 Drop Droperette BOTH EYES 07/28/24 21:59 1 drops
QID KARLOS Administration
Atorvastatin Calcium 10 mg 07/01/24 08:00 07/01/24 09:05
Atorvastatin (Lipitor) 10 Mg Tablet PO 07/29/24 07:59 10 mg
DAILY KARLOS Administration
Bisacodyl 10 mg 06/30/24 20:09
Bisacodyl 10 Mg Rectal Suppository RECTAL 07/28/24 20:08
[id number] PRN
constipation
Carbidopa/Levodopa 1 tablet 06/30/24 22:00 07/01/24 15:45
Carbidopa (25 Mg)/Levodopa (250 Mg) Regular Release Tablet PO 07/28/24 21:59 1 tablet
TID KARLOS Administration
Carbidopa/Levodopa 1 tablet 07/01/24 07:00 07/01/24 15:48
Carbidopa (25 Mg)/Levodopa (100 Mg) Regular Release Tablet PO 07/29/24 06:59 1 tablet
BID@0700,1500 KARLOS Administration
Ceftriaxone Sodium 2,000 mg 07/01/24 18:00 07/01/24 18:44
Ceftriaxone 2,000 Mg/20 Ml Vial IV 2,000 mg
Q24H KARLOS Administration
Clopidogrel Bisulfate 75 mg 07/01/24 08:00 07/01/24 09:05
Clopidogrel 75 Mg Tablet PO 07/29/24 07:59 75 mg
DAILY KARLOS Administration
Cyclosporine 1 drops 06/30/24 20:09 07/01/24 09:05
Cyclosporine 0.05% (Ophthalmic Emulsion) 10 Drop Droperette BOTH EYES 07/28/24 20:08 1 drops
Q12 KARLOS Administration
Diazepam 2 mg 07/01/24 20:00
Diazepam 2 Mg Tablet PO 07/29/24 19:59
BID KARLOS
Enoxaparin Sodium 40 mg 07/01/24 18:00 07/01/24 18:43
Enoxaparin Sodium 40 Mg/0.4 Ml Syringe SC 07/29/24 17:59 40 mg
QPM KARLOS Administration
Fenofibrate 48 mg 07/01/24 08:00 07/01/24 09:05
Fenofibrate 48 Mg Tablet PO 07/29/24 07:59 48 mg
DAILY KARLOS Administration
Fluoxetine HCl 20 mg 07/01/24 08:00 07/01/24 09:04
Fluoxetine 20 Mg Capsule PO 07/29/24 07:59 20 mg
DAILY KARLOS Administration
Hyoscyamine Sulfate 0.125 mg 06/30/24 21:28
Hyoscyamine 0.125 Mg (Sl/Oral) Tablet PO 07/28/24 21:27
DAILYPRN PRN
secretions
Hyoscyamine Sulfate 0.125 mg 06/30/24 22:00 07/01/24 15:48
Hyoscyamine 0.125 Mg (Sl/Oral) Tablet PO 07/28/24 21:59 0.125 mg
TID KARLOS Administration
Insulin Aspart 0 units 07/01/24 13:05 07/01/24 13:28
Insulin Aspart Moderate Resistance 300 Units/3 Ml Pen.Injctr SC 07/29/24 13:04 Not Given
AC KARLOS
Protocol
Lorazepam 2 mg 07/01/24 18:55
Lorazepam 2 Mg Tablet PO 07/29/24 18:54
ONCE PRN
MRI sedation
Losartan Potassium 50 mg 07/01/24 08:00 07/01/24 09:05
Losartan 50 Mg Tablet PO 07/29/24 07:59 50 mg
DAILY KARLOS Administration
Magnesium 84 mg 07/01/24 08:00 07/01/24 09:05
Magnesium Lactate 84 Mg Tablet PO 07/29/24 07:59 84 mg
DAILY KARLOS Administration
Metformin HCl 850 mg 06/30/24 20:09 07/01/24 18:43
Metformin 850 Mg Regular Release Tablet PO 07/28/24 20:08 850 mg
BID AT 0800,1700 KARLOS Administration
Ondansetron HCl 4 mg 06/30/24 20:09
Ondansetron 4 Mg/2 Ml Vial IV 07/28/24 20:08
Q6HPRN PRN
nausea and vomiting
Pantoprazole Sodium 40 mg 06/30/24 20:09 07/01/24 09:04
Pantoprazole 40 Mg Delayed Release Tablet PO 07/28/24 20:08 40 mg
BID KARLOS Administration
Pioglitazone HCl 15 mg 07/01/24 08:00 07/01/24 09:04
Pioglitazone Hcl 15 Mg Tablet PO 07/29/24 07:59 15 mg
DAILY KARLOS Administration
Polyethylene Glycol 17 grams 06/30/24 20:09
Polyethylene Glycol Powder 17 Grams Packet PO 07/28/24 20:08
DAILYPRN PRN
constipation
Senna/Docusate Sodium 1 tablet 06/30/24 20:09
Docusate W/Senna (Alexus-Colace) Tablet PO 07/28/24 20:08
BIDPRN PRN
constipation
Sodium Chloride 0 flush 06/30/24 22:00
Sodium Chloride 0.9% (Flush) Syringe IV 07/28/24 21:59
PER PROTOCOL KARLOS
Sterile Water 20 ml 07/01/24 18:00 07/01/24 18:44
Sterile Water For Injection 20 Ml Vial IV 07/29/24 17:59 20 ml
Q24H KARLOS Administration
Terazosin HCl 2 mg 06/30/24 22:00 06/30/24 21:49
Terazosin 1 Mg Capsule PO 07/28/24 21:59 2 mg
HS KARLOS Administration
Tramadol HCl 50 mg 06/30/24 20:09
Tramadol Hcl 50 Mg Tablet PO 07/28/24 20:08
DAILYPRN PRN
moderate pain
Zolpidem Tartrate 5 mg 06/30/24 22:00 06/30/24 21:48
Zolpidem Tartrate 5 Mg Tablet PO 07/28/24 21:59 5 mg
HS KARLOS Administration
Home Medications
�Medication �Instructions �Recorded
fluoxetine 20 mg capsule 20 mg PO DAILY Mental 11/12/12
Health/Anxiety
metformin 850 mg tablet 850 mg PO BID Diabetes 03/08/18
pioglitazone 15 mg tablet 15 mg PO DAILY Diabetes 03/08/18
losartan 50 mg tablet 50 mg PO DAILY Blood pressure 11/12/18
clopidogrel 75 mg tablet 75 mg PO DAILY Blood clot 01/11/20
prevention/tx
fenofibrate 54 mg tablet 54 mg PO DAILY High cholesterol 01/11/20
pantoprazole 40 mg tablet,delayed 40 mg PO BID Gastrointestinal issue 01/11/20
release
atorvastatin 20 mg tablet 10 mg PO DAILY High cholesterol 09/12/21
carbidopa 25 mg-levodopa 100 mg 1 tab PO BID PARKINSONS 11/16/21
tablet
carbidopa 25 mg-levodopa 250 mg 1 tab PO TID PARKINSONS 11/16/21
tablet
cholecalciferol (vitamin D3) 50 50 mcg PO DAILY Supplement 02/04/23
mcg (2,000 unit) tablet
hyoscyamine sulfate 0.125 mg tablet 0.125 mg PO DAILYPRN PRN secretions 02/04/23
hyoscyamine sulfate 0.125 mg tablet 0.125 mg PO TID 02/04/23
terazosin 2 mg capsule 2 mg PO HS Blood pressure #0 caps 07/13/23
zolpidem 5 mg tablet 5 mg PO HS #2 tabs 07/13/23
cyclosporine 0.05 % eye drops in a 1 drp BOTH EYES Q12H 03/12/24
dropperette (Restasis)
peg 400-propylene glycol (PF) 0.4 1 drp BOTH EYES QID 03/12/24
%-0.3 % eye drops in a dropperette
(Systane (PF))
magnesium oxide 400 mg PO DAILY 06/30/24
potassium citrate 10 mEq (1,080 10 meq PO BID 06/30/24
mg) tablet,extended release
tramadol 50 mg tablet 50 mg PO DAILYPRN PRN moderate pain 06/30/24
[2024-07-01] MEDS: NOVOLOG FLEXPEN-MODERATE RESISTANCE 5 UNITS SC (19:21)
[2024-07-01 21:30] LABS: Glucose - Point of Care 276 mg/dl (70-99)
[2024-07-01] MEDS: VALIUM 2 MG PO (21:32)
[2024-07-01] MEDS: AMBIEN 5 MG PO (21:33)
[2024-07-01] MEDS: HYTRIN 2 MG PO (21:35)
[2024-07-01 23:20] VITALS: BP 108/59
--- NOTE | 2024-07-02 00:10 | PTCARENOTE ---
Patient having spasming in face and neck area that this RN did not observe previously. DELICIA Laurent notified. See MAY. Will continue to monitor.
[2024-07-02] MEDS: VALIUM 2 MG PO ×3 (00:21→20:57)
[2024-07-02 05:05] VITALS: BMI 31.6
[2024-07-02] MEDS: SINEMET 25-100 1 TABLET PO ×2 (06:15→15:56)
[2024-07-02 06:36] LABS: Hematocrit 39.3 % (39.0-52.0); Hemoglobin 13.5 g/dL (13.0-18.0); Mean Corp Hgb Conc. 34.4 g/dL (33.0-37.0); Mean Corpuscular Hgb 30.1 pg (27.0-31.0); Mean Corpuscular Volume 87.5 fL (80.0-94.0); Mean Platelet Volume 11.4 fL (7.4-10.4); Platelet Count 168 10^3/uL (130-400); Red Blood Cell Count 4.49 10^6/uL (4.70-6.10); Red Cell Dist. Width 12.1 % (11.5-14.5); White Blood Cell Count 7.4 10^3/uL (4.8-10.8)
[2024-07-02 07:02] LABS: Blood Urea Nitrogen 19 mg/dl (9-20); Calcium 9.6 mg/dl (8.4-10.2); Carbon Dioxide 25 mmol/L (22-30); Chloride 100 mmol/L (98-107); Estimated Creatinine Clearance 103 ml/min; Glucose 243 mg/dl (70-99); Potassium 4.2 mmol/L (3.5-5.1); Sodium 135 mmol/L (135-145); eGFR > 60.00
[2024-07-02 07:26] LABS: Glucose - Point of Care 229 mg/dl (70-99)
[2024-07-02 07:43] VITALS: BP 147/83
[2024-07-02] MEDS: RESTASIS 0.05% OPHTHALMIC EMULSION 1 DROPS BOTH EYES ×2 (08:23→20:58)
[2024-07-02] MEDS: PLAVIX 75 MG PO (08:24)
[2024-07-02] MEDS: PROTONIX 40 MG PO ×2 (08:24→20:58)
[2024-07-02] MEDS: COZAAR 50 MG PO (08:24)
[2024-07-02] MEDS: SINEMET 25-250 1 TABLET PO ×3 (08:24→21:16)
[2024-07-02] MEDS: LEVSIN 0.125 MG PO ×3 (08:24→21:17)
[2024-07-02] MEDS: REFRESH EYE DROPS (PF) 1 DROPS BOTH EYES ×4 (08:24→21:04)
[2024-07-02] MEDS: GLUCOPHAGE 850 MG PO ×2 (08:24→17:21)
[2024-07-02] MEDS: TRICOR 48 MG PO (08:24)
[2024-07-02] MEDS: ACTOS 15 MG PO (08:24)
[2024-07-02] MEDS: MAG-TAB SR 84 MG PO (08:24)
[2024-07-02] MEDS: LIPITOR 10 MG PO (08:24)
[2024-07-02] MEDS: NOVOLOG FLEXPEN-MODERATE RESISTANCE 3 UNITS SC (08:25)
[2024-07-02] MEDS: PROZAC 20 MG PO (08:37)
--- NOTE | 2024-07-02 09:03 | W.PN.HOSP.TC ---
Addendum entered and electronically signed by Manolo Holland MD 07/02/24 13:08:
Addendum
Peer wound care nurse: partial thickness openings on both buttocks, MASD vs stage 2
Original Note:
Today's Communication/Plan
-
f/w neurology recommendations
requesting bladder scan BID for one day to detect retention with UTI
To better control hyperglycemia with Lantus, pre-meal insulin
Assessment / Plan
Assessment / Plan
Physical Exam
-
General: Appears Chronically Ill, not in respiratory distress
HEENT: Normocephalic and Atraumatic
Respiratory: Negative Wheezes
Cardiac: Regular Rhythm
GI: Soft and Nontender
Neuro: AO to self and surroundings, he followed commands, + stiffness, + hypophonia
Psych: Calm
Assessment:
Complicated UTI due to male sex
No fever. No leukocytosis.
Bladder scan was not reported, will ask nurse to check today
- continue Rocephin, day 1 pending cultures
- continue IVF
R>L arm numbness, acute on chronic
CT head: No acute intracranial abnormality noted.
- MRI brain and MRI c-spine ordered
Per neurology: use Valium 2 mg BID
- known spinal stenosis
Ambulatory dysfunction - Chronic, now unable to assist with transition due to weakness likely 2/2 UTI
- PT eval
- CM for possible SNF
DM II
Poorly controlled
Add Lantus and pre-meal insulin
Hemoglobin A1c in February, was 12.1
- metformin 850 bid
- pioglitazone
- sliding scale insulin
Parkinson disease with RLE dyskinesias
- carbidopa-levodopa
- continue fluoxetine
- zolpidem hs
- ST eval
- Neuro eval for dyskinesia symptom control
# Stage 2 pressure wound/ buttocks
Essential HTN
- continue losartan
TIA/CVA
- continue Plavix, Tricor and atorvastatin
DVT ppx: Lovenox
Code: Full
# hyponatremia, resolved
Total time spent to see the patient, examine the patient, review data and lab results, discuss treatment plan with patient and nursing staff around 55 minutes
Anticipated Discharge: 24 - 48 hours
Subjective/Interval History
-
Date of Service: July 02, 2024
He denies chest pain or abdominal pain
No sob
Objective Data
-
Labs:
Laboratory Results
07/02/24
06:14
WBC 7.4
Hgb 13.5
Hct 39.3
Plt Count 168
Sodium 135
Potassium 4.2
Chloride 100
Carbon Dioxide 25
BUN 19
Creatinine 0.7
Glucose 243 H
Calcium 9.6
Vital Signs:
Vital Signs
Temp Pulse Resp BP Pulse Ox
97.6 F 76 17 147/83 97
07/02/24 07:43 07/02/24 08:24 07/02/24 07:43 07/02/24 08:24 07/02/24 07:43
I&O
07/01/24 07/02/24 07/03/24
06:59 06:59 06:59
Intake Total 120 / 120 240 / 240
Balance 120 / 120 240 / 240
[2024-07-02 09:07] LABS: Glycohemoglobin (HgbA1c) 12.6 % (4.0-5.6)
[2024-07-02] MEDS: LANTUS 0.2 UNITS SC (09:37)
[2024-07-02] MEDS: ATIVAN 2 MG PO (09:43)
--- NOTE | 2024-07-02 10:19 | CM ---
PT OT [place] SN[place]
Spoke with Alice [phone] PT blas reviewed with .
requested referral for [facility].
For MRI today.
PLAn To SNF after located
--- NOTE | 2024-07-02 11:14 | WOUNDNOTE ---
SACRUM AND B/L BUTTOCKS
--- NOTE | 2024-07-02 11:15 | WOUNDNOTE ---
WON RN note: Patient admitted with UTI, frequent falls.
See H&P for complete history. Lives with Alice.
PMH: NIDDM, HTN, Parkinson's,CVA, mild dementia and frequent falls.
Wound Location and type/assessment: Patient known to service, last seen 07/12/23 for scattered partial thickness openings on both buttocks, MASD vs stage 2 PI. Turned patient with assist from PCT, patient assisted. Incontinent of smear of stool,
skin care given. Has few shallow dry ulcers b/l sacrum and L upper buttocks with dry thin scab, suspect healing PI vs MASD. at bedside reports he has a gel overlay to bed and offloading cushion in his motorized WC. Has scattered bruising on
body from past falls. Heels are intact, assisted moving patient to stretcher for test.
Appetite: Good.
Pressure redistribution devices in place: Air Mattress, turning schedule, pillow under calves applied.
Plan: Applied silicone foam to L buttock/sacrum, if not appropriate can use barrier cream.
Will confirm orders with hospitalist and updated nurse.
Updated care plan and will follow as needed.
Note to case management of equipment requested for discharge: VN if home
[2024-07-02 12:26] LABS: Glucose - Point of Care 311 mg/dl (70-99)
[2024-07-02] MEDS: NOVOLOG FLEXPEN-MODERATE RESISTANCE 7 UNITS SC (12:26)
[2024-07-02] MEDS: NOVOLOG FLEXPEN 5 UNITS SC (12:28)
[2024-07-02] MEDS: SENOKOT-S 1 TABLET PO (14:10)
--- NOTE | 2024-07-02 15:10 | PN.DE.MGMTRT ---
Insulin Management
- -
07/02/2024 Diabetes Management Consult
Patient admitted 06/30 with weakness. PMH HTN, Parkinsons, CVA, diabetes, HLD. Prior to admission was taking metformin 850 mg BID and Actos 15 mg daily. A1C 12%, cr .7, eGFR > 60.
Patient is awake and alert, difficult to understand, very soft spoken. Denies cp or sob.
Patient received 5 units novolog with breakfast, 20 units lantus this AM pre lunch glucose 311. Will increase daily lantus to 25 units, and AC novolog to 8 units with moderate corrective insulin.
Will follow
Discussed with nurse.
Diabetes History
- -
Type of Diabetes: 2 requiring insulin
Pre-Admission Diabetes Regimen
07/02/24
06:14
Creatinine 0.7
Lab Results
Hemoglobin A1c 12.6 % (4.0-5.6) H 07/02/24 06:14
Insulin Pump Settings
IP Diabetes Regimen
07/01/24 07/01/24 07/02/24
17:11 21:29 06:14
Glucose 243 H
POC Glucose 256 H 276 H
07/02/24 07/02/24
07:25 12:25
Glucose
POC Glucose 229 H 311 H
Patient Education
[2024-07-02 15:24] VITALS: BP 144/76
--- NOTE | 2024-07-02 15:35 | PTCARENOTE ---
07/02/2024 DIABETES EDUCATION
I met withMr. and Mrs. Alston review diabetes management. Mr. Alston has Type 2 DM and Parkinson's Disease, his completes all care for him. They have a home visiting palliative care physician who manages his health. States that his last
HbA1c was completed one year ago.
Has not been checking glucose levels at home, he refused years ago and has not attempted to self monitor since.
I educated on physiology of T2D, managing with medications, monitoring BG, nutrition, activity, sleep and managing stress.
I educated and reviewed with Mr. Schultz and his , Gissel on using Contour Next glucometer. She acknowledged understanding with a self demonstration of checking BS since she would be performing the glucose monitoring. States he has been
allowing the RN to check his glucose levels without any difficulty.
I educated and demonstrated on insulin injection technique, timing, and storage. Discussed long acting insulin; onset/peak/duration, and encouraged Mrs. Alston to administer his injections with RN supervision if permissable while admitted.
Spoke to RN about this.
Discussed normal target glucose ranges and a monitoring schedule of before meals if he is discharged with mealtime insulin. I reinforced signs of hyperglycemia, hypoglycemia; BS parameters and recommended HbA1c goals, written material provided.
Encouraged patient to follow up with his PCP for post d/c appointment and to monitor medication and blood glucose levels. Provided list of endocrinologists if desired, to contact insurance company to verify in network status. Information provided
on the outpatient DSME program. Patient verbalized understanding. Will visit patient and spouse tomorrow as per their request to review insulin injection technique and glucose monitoring. Will discuss discharge plans to home vs. rehab and
ordering DM testing supplies. They are interested in a CGM, will contact their PCP for additional discussion.
[2024-07-02 16:15] LABS: Glucose - Point of Care 290 mg/dl (70-99)
--- NOTE | 2024-07-02 16:29 | PTOTSP ---
[facility] Eval
Patient aphonic to profoundly dysphonic likely exacerbated by complicated UTI and baseline Parkinson's disease. Per , difficulty voicing is impacting communication in the hospital with staff and with his .
Recommend:
1. Encourage patient to use augmentative and alternative communication at the bedside including basic needs boards and alphabet board (to point to first letter of word)
2. Acute voice tx is not appropriate. Pending GOC, outpatient ENT and then outpatient [facility] evaluation for voice/support communication
--- NOTE | 2024-07-02 16:46 | CON.NEURO ---
Neuro Assessment/Plan
Assessment
left sided hemidyskinesias x4 months, most likely sequela of right thalamic stroke but can also be seen with tumors or diabetes
initially responded to Ativan 0.5 then 1 mg but now ineffective
will try Valium 2 mg BID
patient and family requesting MRI brain and cervical spine which were ordered at admission though this will not change the management; stroke secondary prevention will be the same, and he would be a poor candidate for further spinal surgery will
need sedation of the dyskinesias to get the scan
stroke secondary prevention Plavix 75, Lipitor 10
also requesting further a-fib screening which I do not do not believe is necessary, requesting cardiology consult Dr Salinas
Parkinson's, continue Sinemet 5/day
Consultation
Order
Date of Consultation: 07/02/24
Neurology follow-up note.
HPI: This is a 78-year-old man who presented to [facility] on June 30, 2024 with worsening of leg weakness. According to EMR patient slipped down to the floor during transition from the bed to the wheelchair and his spouse could not
assist
The patient reports no complaints.
ER VS: 145/77, 80, afebrile.
EKG: NSR, QTc Int : 432 ms
PDMP: Zolpidem Tartrate 5 Mg 90 tablets filled in on 06/01/2024, 02/26/2024, Lorazepam 1 Mg�60 tablets filled in on 03/23/2024, Lorazepam 0.5 Mg 10 tablets filled in on 03/22/2024
Labs: Hemoglobin A1c�12.6.
Brain MRI�no evidence of acute infarct, chronic left lentiform nucleus infarct, moderate atrophy,
PMH: IPDHTN, DLP, uncontrolled DM, HFpEF, vitamin D deficiency, GERD, MDD, ANUJ, insomnia, nephrolithiasis, BMI 31, polyneuropathy
PSH: C5-6 ACDF, lumbar fusion, R TKA, L ankle surgery, left rotator cuff surgery, bilateral cataract surgery, cholecystectomy, Right Ureteroscopy, Laser Lithotripsy
SH: , former smoker, wheelchair-bound
FH: Not contributory to current presentation
All: Codeine, doxycycline, oxycodone
ROS: Negative for fever, weight change
Neurological: Positive for ambulatory dysfunction, confusion, abnormal movement
General: Well developed. In no acute distress.
Cardio: Regular rate and rhythm. Extremities are without cyanosis or edema.
Neuro:
Mental Status: Alert, oriented to name not place, month or year. Poor attention and comprehension. Follows simple requests intermittently.
Cranial Nerves: Pupils are equally round, surgical. EOMs full. Blinks to threat bilaterally no ptosis. No nystagmus. Face symmetric. Preserved hearing AU. Mild dysarthria
Motor: Mild right hemiparesis. Moves upper extremities antigravity and lower extremities minimally within bed plane
Reflexes: Limited exam due to dyskinesias
Sensory: Limited exam due to poor attention
Coordination: Generalized dyskinesia
Gait: deferred
Assessment and Plan:
I. Idiopathic Parkinson disease.
II. Dyskinesias
III. Chronic left lentiform nucleus infarct
IV. Multifactorial ambulatory dysfunction (parkinsonism, polyneuropathy, myelopathy)
V. Encephalopathy (neurodegenerative, vascular, metabolic)
- Fall and delirium precautions
- Strict glycemic, blood pressure and lipid control.
- Continue Plavix 75 mg daily for secondary stroke prevention.
- Please obtain medical records from Dr. Dugan
- Would consider OP reduction of Sinemet frequency or dose, start amantadine or extended-release�pramipexole to reduce dyskinesia
- Avoid dopamine blockers
- Palliative care consult
- Please recall neurology service with any questions or concerns
I personally reviewed all radiology and labs along with past medical records pertinent to current medical problems. Total time spent in patient care is 60 minutes.
Thank you for allowing us to participate in the care of this patient. Please do not hesitate to contact us with any questions or concerns.
Subjective/Objective
Subjective Data
Date of Service: July 02, 2024
Objective Data
Vital Signs
Temp Pulse Resp BP Pulse Ox
36.4 C 84 17 144/76 97
07/02/24 15:24 07/02/24 15:24 07/02/24 15:24 07/02/24 15:24 07/02/24 15:24
Lab Results
07/02/24 06:14
07/02/24 06:14
Sodium 135 mmol/L (135-145) 07/02/24 06:14
Potassium 4.2 mmol/L (3.5-5.1) 07/02/24 06:14
BUN 19 mg/dl (9-20) 07/02/24 06:14
Glucose 243 mg/dl (70-99) H 07/02/24 06:14
Calcium 9.6 mg/dl (8.4-10.2) 07/02/24 06:14
Patient Allergies
doxycycline Allergy (Intermediate, Verified 07/01/24 11:12)
Rash
codeine Allergy (Verified 11/16/21 06:50)
Unknown
latex Allergy (Verified 11/16/21 06:50)
Unknown
oxycodone HCl [From Percocet] Allergy (Verified 11/16/21 06:50)
Unknown
Medications
-
Active Medications
Generic Name Dose Route Start Last Admin
Trade Name Freq PRN Reason Stop Dose Admin
Acetaminophen 650 mg 06/30/24 20:09
Acetaminophen 325 Mg Tablet PO 07/28/24 20:08
Q4HPRN PRN
mild pain/BECKFORD/temp> 100.4F
Artificial Tears 1 drops 06/30/24 22:00 07/02/24 12:25
Artificial Tears Pf (Refresh) 10 Drop Droperette BOTH EYES 07/28/24 21:59 1 drops
QID KARLOS Administration
Atorvastatin Calcium 10 mg 07/01/24 08:00 07/02/24 08:24
Atorvastatin (Lipitor) 10 Mg Tablet PO 07/29/24 07:59 10 mg
DAILY KARLOS Administration
Bisacodyl 10 mg 06/30/24 20:09
Bisacodyl 10 Mg Rectal Suppository RECTAL 07/28/24 20:08
[id number] PRN
constipation
Carbidopa/Levodopa 1 tablet 06/30/24 22:00 07/02/24 15:55
Carbidopa (25 Mg)/Levodopa (250 Mg) Regular Release Tablet PO 07/28/24 21:59 1 tablet
TID KARLOS Administration
Carbidopa/Levodopa 1 tablet 07/01/24 07:00 07/02/24 15:56
Carbidopa (25 Mg)/Levodopa (100 Mg) Regular Release Tablet PO 07/29/24 06:59 1 tablet
BID@0700,1500 KARLOS Administration
Ceftriaxone Sodium 2,000 mg 07/01/24 18:00 07/01/24 18:44
Ceftriaxone 2,000 Mg/20 Ml Vial IV 2,000 mg
Q24H KARLOS Administration
Clopidogrel Bisulfate 75 mg 07/01/24 08:00 07/02/24 08:24
Clopidogrel 75 Mg Tablet PO 07/29/24 07:59 75 mg
DAILY KARLOS Administration
Cyclosporine 1 drops 06/30/24 20:09 07/02/24 08:23
Cyclosporine 0.05% (Ophthalmic Emulsion) 10 Drop Droperette BOTH EYES 07/28/24 20:08 1 drops
Q12 KARLOS Administration
Dextrose 12.5 grams 07/02/24 15:00
Dextrose 50% (0.5 Grams/Ml) 50 Ml Syringe IV 07/30/24 14:59
[id number] PRN
hypoglycemia
Protocol
Diazepam 2 mg 07/01/24 20:00 07/02/24 08:24
Diazepam 2 Mg Tablet PO 07/29/24 19:59 2 mg
BID KARLOS Administration
Enoxaparin Sodium 40 mg 07/01/24 18:00 07/01/24 18:43
Enoxaparin Sodium 40 Mg/0.4 Ml Syringe SC 07/29/24 17:59 40 mg
QPM KARLOS Administration
Fenofibrate 48 mg 07/01/24 08:00 07/02/24 08:24
Fenofibrate 48 Mg Tablet PO 07/29/24 07:59 48 mg
DAILY KARLOS Administration
Fluoxetine HCl 20 mg 07/01/24 08:00 07/02/24 08:37
Fluoxetine 20 Mg Capsule PO 07/29/24 07:59 20 mg
DAILY KARLOS Administration
Glucagon 1 mg 07/02/24 15:00
Glucagon 1 Mg Vial IM 07/30/24 14:59
PRN PRN
hypoglycemia - no IV access
Protocol
Hyoscyamine Sulfate 0.125 mg 06/30/24 21:28
Hyoscyamine 0.125 Mg (Sl/Oral) Tablet PO 07/28/24 21:27
DAILYPRN PRN
secretions
Hyoscyamine Sulfate 0.125 mg 06/30/24 22:00 07/02/24 15:55
Hyoscyamine 0.125 Mg (Sl/Oral) Tablet PO 07/28/24 21:59 0.125 mg
TID KARLOS Administration
Insulin Glargine 25 units/ 0.25 mls @ 0 mls/hr 07/03/24 08:00
Device SC 07/31/24 07:59
DAILY KARLOS
As Directed
Insulin Aspart 0 units 07/01/24 13:05 07/02/24 12:26
Insulin Aspart Moderate Resistance 300 Units/3 Ml Pen.Injctr SC 07/29/24 13:04 7 units
AC KARLOS Administration
Protocol
Insulin Aspart 8 units 07/02/24 16:30
Insulin Aspart (100 Units/Ml) 3 Ml Flexpen SC 07/30/24 16:29
AC KARLOS
Lorazepam 2 mg 07/01/24 18:55 07/02/24 09:43
Lorazepam 2 Mg Tablet PO 07/29/24 18:54 2 mg
ONCE PRN PRN Administration
MRI sedation
Losartan Potassium 50 mg 07/01/24 08:00 07/02/24 08:24
Losartan 50 Mg Tablet PO 07/29/24 07:59 50 mg
DAILY KARLOS Administration
Magnesium 84 mg 07/01/24 08:00 07/02/24 08:24
Magnesium Lactate 84 Mg Tablet PO 07/29/24 07:59 84 mg
DAILY KARLOS Administration
Metformin HCl 850 mg 06/30/24 20:09 07/02/24 08:24
Metformin 850 Mg Regular Release Tablet PO 07/28/24 20:08 850 mg
BID AT 0800,1700 KARLOS Administration
Ondansetron HCl 4 mg 06/30/24 20:09
Ondansetron 4 Mg/2 Ml Vial IV 07/28/24 20:08
Q6HPRN PRN
nausea and vomiting
Pantoprazole Sodium 40 mg 06/30/24 20:09 07/02/24 08:24
Pantoprazole 40 Mg Delayed Release Tablet PO 07/28/24 20:08 40 mg
BID KARLOS Administration
Pioglitazone HCl 15 mg 07/01/24 08:00 07/02/24 08:24
Pioglitazone Hcl 15 Mg Tablet PO 07/29/24 07:59 15 mg
DAILY KARLOS Administration
Polyethylene Glycol 17 grams 06/30/24 20:09
Polyethylene Glycol Powder 17 Grams Packet PO 07/28/24 20:08
DAILYPRN PRN
constipation
Senna/Docusate Sodium 1 tablet 06/30/24 20:09 07/02/24 14:10
Docusate W/Senna (Alexus-Colace) Tablet PO 07/28/24 20:08 1 tablet
BIDPRN PRN Administration
constipation
Sodium Chloride 0 flush 06/30/24 22:00
Sodium Chloride 0.9% (Flush) Syringe IV 07/28/24 21:59
PER PROTOCOL KARLOS
Sterile Water 20 ml 07/01/24 18:00 07/01/24 18:44
Sterile Water For Injection 20 Ml Vial IV 07/29/24 17:59 20 ml
Q24H KARLOS Administration
Terazosin HCl 2 mg 06/30/24 22:00 07/01/24 21:35
Terazosin 1 Mg Capsule PO 07/28/24 21:59 2 mg
HS KARLOS Administration
Tramadol HCl 50 mg 06/30/24 20:09
Tramadol Hcl 50 Mg Tablet PO 07/28/24 20:08
DAILYPRN PRN
moderate pain
Zolpidem Tartrate 5 mg 06/30/24 22:00 07/01/24 21:33
Zolpidem Tartrate 5 Mg Tablet PO 07/28/24 21:59 5 mg
HS KARLOS Administration
Home Medications
�Medication �Instructions �Recorded
fluoxetine 20 mg capsule 20 mg PO DAILY Mental 11/12/12
Health/Anxiety
metformin 850 mg tablet 850 mg PO BID Diabetes 03/08/18
pioglitazone 15 mg tablet 15 mg PO DAILY Diabetes 03/08/18
losartan 50 mg tablet 50 mg PO DAILY Blood pressure 11/12/18
clopidogrel 75 mg tablet 75 mg PO DAILY Blood clot 01/11/20
prevention/tx
fenofibrate 54 mg tablet 54 mg PO DAILY High cholesterol 01/11/20
pantoprazole 40 mg tablet,delayed 40 mg PO BID Gastrointestinal issue 01/11/20
release
atorvastatin 20 mg tablet 10 mg PO DAILY High cholesterol 09/12/21
carbidopa 25 mg-levodopa 100 mg 1 tab PO BID PARKINSONS 11/16/21
tablet
carbidopa 25 mg-levodopa 250 mg 1 tab PO TID PARKINSONS 11/16/21
tablet
cholecalciferol (vitamin D3) 50 50 mcg PO DAILY Supplement 02/04/23
mcg (2,000 unit) tablet
hyoscyamine sulfate 0.125 mg tablet 0.125 mg PO DAILYPRN PRN secretions 02/04/23
hyoscyamine sulfate 0.125 mg tablet 0.125 mg PO TID 02/04/23
terazosin 2 mg capsule 2 mg PO HS Blood pressure #0 caps 07/13/23
zolpidem 5 mg tablet 5 mg PO HS #2 tabs 07/13/23
cyclosporine 0.05 % eye drops in a 1 drp BOTH EYES Q12H 03/12/24
dropperette (Restasis)
peg 400-propylene glycol (PF) 0.4 1 drp BOTH EYES QID 03/12/24
%-0.3 % eye drops in a dropperette
(Systane (PF))
magnesium oxide 400 mg PO DAILY 06/30/24
potassium citrate 10 mEq (1,080 10 meq PO BID 06/30/24
mg) tablet,extended release
tramadol 50 mg tablet 50 mg PO DAILYPRN PRN moderate pain 06/30/24
Vital Signs and Labs
-
Vital Signs and Labs:
Vital Signs
Temp Pulse Resp BP Pulse Ox
36.4 C 84 17 144/76 97
07/02/24 15:24 07/02/24 15:24 07/02/24 15:24 07/02/24 15:24 07/02/24 15:24
Lab Results
07/02/24 06:14
07/02/24 06:14
Sodium 135 mmol/L (135-145) 07/02/24 06:14
Potassium 4.2 mmol/L (3.5-5.1) 07/02/24 06:14
BUN 19 mg/dl (9-20) 07/02/24 06:14
Glucose 243 mg/dl (70-99) H 07/02/24 06:14
Calcium 9.6 mg/dl (8.4-10.2) 07/02/24 06:14
Medications
-
Medications:
Generic Name Dose Route Start Last Admin
Trade Name Freq PRN Reason Stop Dose Admin
Acetaminophen 650 mg 06/30/24 20:09
Acetaminophen 325 Mg Tablet PO 07/28/24 20:08
Q4HPRN PRN
mild pain/BECKFORD/temp> 100.4F
Artificial Tears 1 drops 06/30/24 22:00 07/02/24 12:25
Artificial Tears Pf (Refresh) 10 Drop Droperette BOTH EYES 07/28/24 21:59 1 drops
QID KARLOS Administration
Atorvastatin Calcium 10 mg 07/01/24 08:00 07/02/24 08:24
Atorvastatin (Lipitor) 10 Mg Tablet PO 07/29/24 07:59 10 mg
DAILY KARLOS Administration
Bisacodyl 10 mg 06/30/24 20:09
Bisacodyl 10 Mg Rectal Suppository RECTAL 07/28/24 20:08
[id number] PRN
constipation
Carbidopa/Levodopa 1 tablet 06/30/24 22:00 07/02/24 15:55
Carbidopa (25 Mg)/Levodopa (250 Mg) Regular Release Tablet PO 07/28/24 21:59 1 tablet
TID KARLOS Administration
Carbidopa/Levodopa 1 tablet 07/01/24 07:00 07/02/24 15:56
Carbidopa (25 Mg)/Levodopa (100 Mg) Regular Release Tablet PO 07/29/24 06:59 1 tablet
BID@0700,1500 KARLOS Administration
Ceftriaxone Sodium 2,000 mg 07/01/24 18:00 07/01/24 18:44
Ceftriaxone 2,000 Mg/20 Ml Vial IV 2,000 mg
Q24H KARLOS Administration
Clopidogrel Bisulfate 75 mg 07/01/24 08:00 07/02/24 08:24
Clopidogrel 75 Mg Tablet PO 07/29/24 07:59 75 mg
DAILY KARLOS Administration
Cyclosporine 1 drops 06/30/24 20:09 07/02/24 08:23
Cyclosporine 0.05% (Ophthalmic Emulsion) 10 Drop Droperette BOTH EYES 07/28/24 20:08 1 drops
Q12 KARLOS Administration
Dextrose 12.5 grams 07/02/24 15:00
Dextrose 50% (0.5 Grams/Ml) 50 Ml Syringe IV 07/30/24 14:59
[id number] PRN
hypoglycemia
Protocol
Diazepam 2 mg 07/01/24 20:00 07/02/24 08:24
Diazepam 2 Mg Tablet PO 07/29/24 19:59 2 mg
BID KARLOS Administration
Enoxaparin Sodium 40 mg 07/01/24 18:00 07/01/24 18:43
Enoxaparin Sodium 40 Mg/0.4 Ml Syringe SC 07/29/24 17:59 40 mg
QPM KARLOS Administration
Fenofibrate 48 mg 07/01/24 08:00 07/02/24 08:24
Fenofibrate 48 Mg Tablet PO 07/29/24 07:59 48 mg
DAILY KARLOS Administration
Fluoxetine HCl 20 mg 07/01/24 08:00 07/02/24 08:37
Fluoxetine 20 Mg Capsule PO 07/29/24 07:59 20 mg
DAILY KARLOS Administration
Glucagon 1 mg 07/02/24 15:00
Glucagon 1 Mg Vial IM 07/30/24 14:59
PRN PRN
hypoglycemia - no IV access
Protocol
Hyoscyamine Sulfate 0.125 mg 06/30/24 21:28
Hyoscyamine 0.125 Mg (Sl/Oral) Tablet PO 07/28/24 21:27
DAILYPRN PRN
secretions
Hyoscyamine Sulfate 0.125 mg 06/30/24 22:00 07/02/24 15:55
Hyoscyamine 0.125 Mg (Sl/Oral) Tablet PO 07/28/24 21:59 0.125 mg
TID KARLOS Administration
Insulin Glargine 25 units/ 0.25 mls @ 0 mls/hr 07/03/24 08:00
Device SC 07/31/24 07:59
DAILY KARLOS
As Directed
Insulin Aspart 0 units 07/01/24 13:05 07/02/24 12:26
Insulin Aspart Moderate Resistance 300 Units/3 Ml Pen.Injctr SC 07/29/24 13:04 7 units
AC KARLOS Administration
Protocol
Insulin Aspart 8 units 07/02/24 16:30
Insulin Aspart (100 Units/Ml) 3 Ml Flexpen SC 07/30/24 16:29
AC KARLOS
Lorazepam 2 mg 07/01/24 18:55 07/02/24 09:43
Lorazepam 2 Mg Tablet PO 07/29/24 18:54 2 mg
ONCE PRN PRN Administration
MRI sedation
Losartan Potassium 50 mg 07/01/24 08:00 07/02/24 08:24
Losartan 50 Mg Tablet PO 07/29/24 07:59 50 mg
DAILY KARLOS Administration
Magnesium 84 mg 07/01/24 08:00 07/02/24 08:24
Magnesium Lactate 84 Mg Tablet PO 07/29/24 07:59 84 mg
DAILY KARLOS Administration
Metformin HCl 850 mg 06/30/24 20:09 07/02/24 08:24
Metformin 850 Mg Regular Release Tablet PO 07/28/24 20:08 850 mg
BID AT 0800,1700 KARLOS Administration
Ondansetron HCl 4 mg 06/30/24 20:09
Ondansetron 4 Mg/2 Ml Vial IV 07/28/24 20:08
Q6HPRN PRN
nausea and vomiting
Pantoprazole Sodium 40 mg 06/30/24 20:09 07/02/24 08:24
Pantoprazole 40 Mg Delayed Release Tablet PO 07/28/24 20:08 40 mg
BID KARLOS Administration
Pioglitazone HCl 15 mg 07/01/24 08:00 07/02/24 08:24
Pioglitazone Hcl 15 Mg Tablet PO 07/29/24 07:59 15 mg
DAILY KARLOS Administration
Polyethylene Glycol 17 grams 06/30/24 20:09
Polyethylene Glycol Powder 17 Grams Packet PO 07/28/24 20:08
DAILYPRN PRN
constipation
Senna/Docusate Sodium 1 tablet 06/30/24 20:09 07/02/24 14:10
Docusate W/Senna (Alexus-Colace) Tablet PO 07/28/24 20:08 1 tablet
BIDPRN PRN Administration
constipation
Sodium Chloride 0 flush 06/30/24 22:00
Sodium Chloride 0.9% (Flush) Syringe IV 07/28/24 21:59
PER PROTOCOL KARLOS
Sterile Water 20 ml 07/01/24 18:00 07/01/24 18:44
Sterile Water For Injection 20 Ml Vial IV 07/29/24 17:59 20 ml
Q24H KARLOS Administration
Terazosin HCl 2 mg 06/30/24 22:00 07/01/24 21:35
Terazosin 1 Mg Capsule PO 07/28/24 21:59 2 mg
HS KARLOS Administration
Tramadol HCl 50 mg 06/30/24 20:09
Tramadol Hcl 50 Mg Tablet PO 07/28/24 20:08
DAILYPRN PRN
moderate pain
Zolpidem Tartrate 5 mg 06/30/24 22:00 07/01/24 21:33
Zolpidem Tartrate 5 Mg Tablet PO 07/28/24 21:59 5 mg
HS KARLOS Administration
Home Medications
-
Home Medications
fluoxetine 20 mg capsule 20 mg PO DAILY Mental Health/Anxiety 11/12/12
metformin 850 mg tablet 850 mg PO BID Diabetes 03/08/18
pioglitazone 15 mg tablet 15 mg PO DAILY Diabetes 03/08/18
losartan 50 mg tablet 50 mg PO DAILY Blood pressure 11/12/18
clopidogrel 75 mg tablet 75 mg PO DAILY Blood clot prevention/tx 01/11/20
fenofibrate 54 mg tablet 54 mg PO DAILY High cholesterol 01/11/20
pantoprazole 40 mg tablet,delayed release 40 mg PO BID Gastrointestinal issue 01/11/20
atorvastatin 20 mg tablet 10 mg PO DAILY High cholesterol 09/12/21
carbidopa 25 mg-levodopa 100 mg tablet 1 tab PO BID PARKINSONS 11/16/21
carbidopa 25 mg-levodopa 250 mg tablet 1 tab PO TID PARKINSONS 11/16/21
cholecalciferol (vitamin D3) 50 mcg (2,000 unit) tablet 50 mcg PO DAILY Supplement 02/04/23
hyoscyamine sulfate 0.125 mg tablet 0.125 mg PO DAILYPRN PRN secretions 02/04/23
hyoscyamine sulfate 0.125 mg tablet 0.125 mg PO TID 02/04/23
terazosin 2 mg capsule 2 mg PO HS Blood pressure #0 caps 07/13/23
zolpidem 5 mg tablet 5 mg PO HS #2 tabs 07/13/23
cyclosporine 0.05 % eye drops in a dropperette (Restasis) 1 drp BOTH EYES Q12H 03/12/24
peg 400-propylene glycol (PF) 0.4 %-0.3 % eye drops in a dropperette (Systane (PF)) 1 drp BOTH EYES QID 03/12/24
magnesium oxide 400 mg PO DAILY 06/30/24
potassium citrate 10 mEq (1,080 mg) tablet,extended release 10 meq PO BID 06/30/24
tramadol 50 mg tablet 50 mg PO DAILYPRN PRN moderate pain 06/30/24
[2024-07-02] MEDS: STERILE WATER FOR INJECTION 20 ML IV (17:20)
[2024-07-02] MEDS: LOVENOX 40 MG SC (17:20)
[2024-07-02] MEDS: ROCEPHIN 2000 MG IV (17:20)
[2024-07-02] MEDS: NOVOLOG FLEXPEN 8 UNITS SC (17:21)
[2024-07-02] MEDS: NOVOLOG FLEXPEN-MODERATE RESISTANCE 5 UNITS SC (17:21)
[2024-07-02] MEDS: HYTRIN 2 MG PO (21:05)
[2024-07-02] MEDS: AMBIEN 5 MG PO (21:16)
[2024-07-02 21:38] LABS: Glucose - Point of Care 95 mg/dl (70-99)
[2024-07-02 23:00] VITALS: BP 102/57
[2024-07-03 05:51] VITALS: BMI 31.4
[2024-07-03] MEDS: SINEMET 25-100 1 TABLET PO ×2 (06:10→15:46)
[2024-07-03 07:15] LABS: Glucose - Point of Care 112 mg/dl (70-99)
--- NOTE | 2024-07-03 07:23 | PN.DE.MGMTRT ---
Insulin Management
- -
07/03/2024 Diabetes Management Consult Follow up
Patient admitted 06/30 with weakness. PMH HTN, Parkinsons, CVA, diabetes, HLD. Prior to admission was taking metformin 850 mg BID and Actos 15 mg daily. A1C 12%, cr .7, eGFR > 60.
Patient is awake and alert, difficult to understand, very soft spoken. Denies cp or sob.
07/02 Patient received 5 units novolog with breakfast, 20 units lantus this AM pre lunch glucose 311. AC novolog increased to 8 units (first dose dinner) with moderate corrective insulin. HS glucose 95
07/03 Fasting glucose 112. Will continue AM lantus, increased dose to 22 units, AC novolog to continue at 8 units, will reduce corrective from moderate to low.
Will follow
Discussed with nurse.
Diabetes History
- -
Type of Diabetes: 2 requiring insulin
Pre-Admission Diabetes Regimen
Lab Results
Hemoglobin A1c 12.6 % (4.0-5.6) H 07/02/24 06:14
Insulin Pump Settings
IP Diabetes Regimen
07/02/24 07/02/24 07/02/24
07:25 12:25 16:14
POC Glucose 229 H 311 H 290 H
07/02/24 07/03/24
21:36 07:14
POC Glucose 95 112 H
Meal type: Lunch
Meal type: Breakfast
Amount consumed: 100%
Amount consumed: 100%
Patient Education
--- NOTE | 2024-07-03 07:25 | PTCARENOTE ---
Patient having spasming in face and neck area that this RN did not observe previously. DELICIA Laurent notified. See MAY. Will continue to monitor.
[2024-07-03 07:38] VITALS: BP 144/75
[2024-07-03] MEDS: PLAVIX 75 MG PO (08:30)
[2024-07-03] MEDS: LEVSIN 0.125 MG PO ×3 (08:30→22:06)
[2024-07-03] MEDS: PROTONIX 40 MG PO ×2 (08:30→20:30)
[2024-07-03] MEDS: VALIUM 2 MG PO ×2 (08:30→20:32)
[2024-07-03] MEDS: PROZAC 20 MG PO (08:30)
[2024-07-03] MEDS: GLUCOPHAGE 850 MG PO ×2 (08:30→15:46)
[2024-07-03] MEDS: REFRESH EYE DROPS (PF) 1 DROPS BOTH EYES ×4 (08:31→22:06)
[2024-07-03] MEDS: LANTUS 0.22 UNITS SC (08:31)
[2024-07-03] MEDS: MAG-TAB SR 84 MG PO (08:31)
[2024-07-03] MEDS: LIPITOR 10 MG PO (08:31)
[2024-07-03] MEDS: SINEMET 25-250 1 TABLET PO ×3 (08:31→22:06)
[2024-07-03] MEDS: TRICOR 48 MG PO (08:31)
[2024-07-03] MEDS: RESTASIS 0.05% OPHTHALMIC EMULSION 1 DROPS BOTH EYES ×2 (08:31→20:30)
[2024-07-03] MEDS: ACTOS 15 MG PO (08:31)
[2024-07-03] MEDS: NOVOLOG FLEXPEN-LOW RESISTANCE SC ×2 (08:32→17:20)
[2024-07-03] MEDS: COZAAR 50 MG PO (08:32)
[2024-07-03] MEDS: NOVOLOG FLEXPEN 8 UNITS SC ×3 (08:32→17:20)
--- NOTE | 2024-07-03 09:48 | W.PN.HOSP.TC ---
Addendum entered and electronically signed by Manolo Holland MD 07/04/24 13:25:
Addendum
Called the and discussed discharge planning, likely on July 05, she verbalized understanding
End
Original Note:
Today's Communication/Plan
-
dc planning
Assessment / Plan
Assessment / Plan
Physical Exam
-
General: Appears Chronically Ill, not in respiratory distress
HEENT: Normocephalic and Atraumatic
Respiratory: Negative Wheezes
Cardiac: Regular Rhythm
GI: Soft and Nontender
Skin: no bruising
Neuro: AO to self and surroundings, he followed commands, + stiffness, + hypophonia, sometimes dyskinesias.
Psych: Calm
Assessment:
Complicated Proteus mirabilis UTI due to male sex
No fever. No leukocytosis.
Bladder scan done few times randomly and no retention.
- continue Rocephin, change to oral ABx upon dc.
no need for more IVF
R>L arm numbness, acute on chronic
CT head: No acute intracranial abnormality noted.
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
Per neurology: use Valium 2 mg BID
- known spinal stenosis
# Dyskinesias
Ambulatory dysfunction
Multifactorial ambulatory dysfunction (parkinsonism, polyneuropathy, myelopathy)
- PT eval
- CM for SNF
DM II
Poorly controlled
Added Lantus and pre-meal insulin
Hemoglobin A1c in February, was 12.1
- metformin 850 bid
- pioglitazone
- sliding scale insulin
Parkinson disease with RLE dyskinesias
- carbidopa-levodopa
- continue fluoxetine
- zolpidem hs
- ST eval
- Neuro eval for dyskinesia symptom control
# Stage 2 pressure wound/ buttocks
Essential HTN
- continue losartan
TIA/CVA
- continue Plavix, Tricor and atorvastatin
DVT ppx: Lovenox
Code: Full
# hyponatremia, resolved
Total time spent to see the patient, examine the patient, review data and lab results, discuss treatment plan with patient, and son ( phone) and nursing staff around 55 minutes
Anticipated Discharge: Within 24 hours
Subjective/Interval History
-
Date of Service: July 03, 2024
No chest pain
No sob
Objective Data
-
Vital Signs:
Vital Signs
Temp Pulse Resp BP Pulse Ox
97.9 F 68 17 144/75 95
07/03/24 07:38 07/03/24 08:32 07/03/24 07:38 07/03/24 08:32 07/03/24 07:38
I&O
07/02/24 07/03/24 07/04/24
06:59 06:59 06:59
Intake Total 240 / 240 660 / 660
Balance 240 / 240 660 / 660
[2024-07-03 11:11] LABS: Glucose - Point of Care 199 mg/dl (70-99)
--- NOTE | 2024-07-03 12:09 | CM ---
Patient seen at bedside with
PT rec SNF
Referrals in [facility] for Madhuri Lynch
adaptive physical educator in to see patient
no pre auth needed
PLAN: SNF, pending bed availability when medically stable
[2024-07-03 12:18] VITALS: BMI 31.4
--- NOTE | 2024-07-03 12:25 | PTCARENOTE ---
07/03/2024 DIABETES EDUCATION
I met with Mr. Alston, his Alice and son Braxton. Provided additional written resources on diabetes friendly diets, directed to diabetes.org. Alice declined additional demonstration on insulin injection or using glucometer, requested follow up
either or Tuesday afternoon. She is interested in a CGM, provided written material. Alice questioned insulin needs once in rehab or home, states she feels very overwhelmed with caring for him as she has her own health issues. I explained
that discharge instructions will be sent to rehab to manage his care including medications. Once discharged home, his PCP and/or home visiting palliative care PCP will manage his medications, labs and can help facilitate ordering and approval for
CGM.
[2024-07-03] MEDS: NOVOLOG FLEXPEN-LOW RESISTANCE 1 UNITS SC (12:56)
[2024-07-03 13:01] VITALS: PULSE 78; O2SAT 96
[2024-07-03 15:16] VITALS: BP 149/77
[2024-07-03 16:48] LABS: Glucose - Point of Care 144 mg/dl (70-99)
[2024-07-03] MEDS: LOVENOX 40 MG SC (17:21)
[2024-07-03] MEDS: STERILE WATER FOR INJECTION 20 ML IV (17:21)
[2024-07-03] MEDS: ROCEPHIN 2000 MG IV (17:23)
[2024-07-03 21:28] LABS: Glucose - Point of Care 112 mg/dl (70-99)
[2024-07-03] MEDS: AMBIEN 5 MG PO (22:06)
[2024-07-03] MEDS: HYTRIN 2 MG PO (22:08)
[2024-07-03 23:30] VITALS: BP 92/56
[2024-07-04 03:00] VITALS: BP 138/79
[2024-07-04 05:45] VITALS: BMI 31.4
[2024-07-04] MEDS: SINEMET 25-100 1 TABLET PO (06:21)
[2024-07-04 07:09] VITALS: BP 140/71
--- NOTE | 2024-07-04 07:11 | PN.DE.MGMTRT ---
Insulin Management
- -
07/04/2024 Diabetes Management Consult Follow up
Patient admitted 06/30 with weakness. PMH HTN, Parkinsons, CVA, diabetes, HLD. Prior to admission was taking metformin 850 mg BID and Actos 15 mg daily. A1C 12%, cr .7, eGFR > 60.
Patient is awake and alert, difficult to understand, very soft spoken. Denies cp or sob.
07/03 Fasting glucose 112. Received lantus 22 units in AM with 8 units novolog ac and low corrective insulin. Only required additional 1 unit corrective insulin. Glucose range 112 to 199.
07/04 Will continue AM lantus 22 units, AC novolog to continue at 8 units, with low corrective insulin.
Will follow
Discussed with nurse.
Diabetes History
- -
Type of Diabetes: 2 requiring insulin
Pre-Admission Diabetes Regimen
Lab Results
Hemoglobin A1c 12.6 % (4.0-5.6) H 07/02/24 06:14
Insulin Pump Settings
IP Diabetes Regimen
07/03/24 07/03/24 07/03/24
07:14 11:09 16:47
POC Glucose 112 H 199 H 144 H
07/03/24
21:26
POC Glucose 112 H
Meal type: Lunch
Meal type: Breakfast
Amount consumed: 90%
Amount consumed: 80%
Patient Education
[2024-07-04 08:37] LABS: Glucose - Point of Care 122 mg/dl (70-99)
--- NOTE | 2024-07-04 08:44 | CM ---
Spoke with Celeste from [facility]
Bed available today
IMM reviewed with , agreeable & placed in chart.
PLAN: [facility]
Report #: [id number] 4th floor
Fax #: [phone]
transportation forms on chart
[2024-07-04] MEDS: NOVOLOG FLEXPEN-LOW RESISTANCE SC (09:11)
[2024-07-04] MEDS: PROZAC 20 MG PO (09:28)
[2024-07-04] MEDS: LIPITOR 10 MG PO (09:28)
[2024-07-04] MEDS: ACTOS 15 MG PO (09:29)
[2024-07-04] MEDS: SINEMET 25-250 1 TABLET PO (09:29)
[2024-07-04] MEDS: COZAAR 50 MG PO (09:29)
[2024-07-04] MEDS: MAG-TAB SR 84 MG PO (09:29)
[2024-07-04] MEDS: PROTONIX 40 MG PO (09:30)
[2024-07-04] MEDS: RESTASIS 0.05% OPHTHALMIC EMULSION 1 DROPS BOTH EYES (09:30)
[2024-07-04] MEDS: LEVSIN 0.125 MG PO (09:30)
[2024-07-04] MEDS: GLUCOPHAGE 850 MG PO (09:30)
[2024-07-04] MEDS: PLAVIX 75 MG PO (09:30)
[2024-07-04] MEDS: REFRESH EYE DROPS (PF) 1 DROPS BOTH EYES ×2 (09:30→12:09)
[2024-07-04] MEDS: LANTUS 0.22 UNITS SC (09:33)
[2024-07-04] MEDS: VALIUM 2 MG PO (09:33)
[2024-07-04] MEDS: NOVOLOG FLEXPEN 8 UNITS SC ×2 (09:34→12:08)
--- NOTE | 2024-07-04 09:40 | W.PN.HOSP.TC ---
Today's Communication/Plan
-
dc
Assessment / Plan
Assessment / Plan
Physical Exam
-
General: Appears Chronically Ill, not in respiratory distress
HEENT: Normocephalic and Atraumatic
Respiratory: Negative Wheezes
Cardiac: Regular Rhythm
GI: Soft and Nontender
Skin: no bruising
Neuro: AO to self and surroundings, he followed commands, less stiffness, + hypophonia, sometimes dyskinesias.
Psych: Calm
Assessment:
# Proteus mirabilis UTI, complicated due to male sex
No fever. No leukocytosis.
Bladder scan done few times randomly and no retention.
- continue Rocephin, change to oral ABx upon discharge to finish 10 days course.
no need for more IVF
R>L arm numbness, acute on chronic
CT head: No acute intracranial abnormality noted.
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
Per neurology: use Valium 2 mg BID
- known spinal stenosis
# Dyskinesias
#Ambulatory dysfunction
Multifactorial ambulatory dysfunction (parkinsonism, polyneuropathy, myelopathy)
- PT eval
- CM for SNF
DM II
Poorly controlled
Added Lantus and pre-meal insulin
Hemoglobin A1c in February, was 12.1
- metformin 850 bid
- pioglitazone
- sliding scale insulin
Parkinson disease with RLE dyskinesias
- carbidopa-levodopa
- continue fluoxetine
- zolpidem hs
- ST eval
- Neuro eval for dyskinesia symptom control
# Stage 2 pressure wound/ buttocks
Essential HTN
- continue losartan
TIA/CVA
- continue Plavix, Tricor and atorvastatin
DVT ppx: Lovenox
Code: Full
# hyponatremia, resolved
Total discharge time spent to see the patient, examine the patient, review data and lab results, discuss discharge plan with patient, and nursing staff around 67 minutes
Anticipated Discharge: Today
Subjective/Interval History
-
Date of Service: July 04, 2024
No chest pain
No sob
No abdominal pain
Objective Data
-
Vital Signs:
Vital Signs
Temp Pulse Resp BP Pulse Ox
98 F 73 14 140/71 96
07/04/24 07:09 07/04/24 07:09 07/04/24 07:09 07/04/24 07:09 07/04/24 07:09
I&O
07/03/24 07/04/24 07/05/24
06:59 06:59 06:59
Intake Total 660 / 660 180 / 280 100 / 100
Balance 660 / 660 180 / 280 100 / 100
[2024-07-04] MEDS: TRICOR 48 MG PO (10:52)
[2024-07-04 12:05] LABS: Glucose - Point of Care 175 mg/dl (70-99)
[2024-07-04] MEDS: NOVOLOG FLEXPEN-LOW RESISTANCE 1 UNITS SC (12:09)
[2024-07-04 12:30] VITALS: BP 132/72
--- NOTE | 2024-07-04 13:06 | PTCARENOTE ---
07/04/2024 DIABETES EDUCATION FOLLOW UP
Met with Juan Carlos and his , he is being discharged today. Spouse declines any additional education needs.
--- NOTE | 2024-07-04 13:19 | W.DCSUMMARY ---
Discharge Summary
Discharge Data
Date of Admission: 06/30/24
Date of Discharge: 07/04/24
-
Pending Results: No
Hospital Course
78 years old male admitted to the hospital for weakness. Patient and family reported urinary symptoms. Patient did not have fever Or leukocytosis. Family reported 4 months duration of left-sided, dyskinesia. Patient was evaluated by
neurologist. MRI of the brain did not show acute stroke but showed moderate age-related parenchymal atrophy, stable small chronic infarct of the left basal ganglia. MRI of cervical spine showed chronic degenerative changes, moderate to severe
spinal stenosis at C4/C5 with cord compression and suspected mild degree of compressive myelopathic signal. Patient was diagnosed with multifactorial ambulatory dysfunction to include Parkinson, polyneuropathy and myelopathy. Neurologist
recommended strict glycemic control, continue Plavix and outpatient follow-up with her primary neurologist Dr. Dugan. Neurologist felt that patient was a poor candidate for further spinal surgery. Regarding dyskinesia, it initially responded to
Ativan. Neurologist recommended Valium 2 mg twice a day. Urine culture came positive for Proteus mirabilis, pansensitive. Patient received antibiotic. Did not have urinary retention on bladder scan. He had normal renal function. Patient was
seen by manager order. Hemoglobin A1c was around 12. He was started on long and short acting insulin. Patient remained hemodynamic stable. Physical therapy recommended residential facility. Patient was discharged in a stable condition.
Discharge Plan
-
Patient Disposition: Assisted/SNF
Discharge Diagnosis/Procedures: HTN, Idiopathic Parkinson disease, CVA, diabetes, HLD
Multifactorial ambulatory dysfunction (parkinsonism, polyneuropathy, myelopathy)
Encephalopathy (neurodegenerative, vascular, metabolic)
Dyskinesias
Proteus Mirabilis UTI
Diet: Diabetic, Carb Controlled
Activity Restrictions/Additional Instructions:
Wound Care Instructions
sacrum/L buttock: clean with soap and water, silicone foam change q 2-3 days and prn soilage. (* if foam not appropriate can use barrier cream instead.)
Referrals:
DeNucci,Genesis T., CUSTOMER TRAINER [Family Provider] - in one to two weeks
Prescriptions:
New
polyethylene glycol 3350 17 gram Powder In Packet
17 g PO DAILY Qty: 30 0RF
Insulin Glargine Lantus [Lantus] 22 UNITS
Subcutaneous Insulin Syringe [Syringe-Insulin] 0 UNIT
As Directed mls/hr SC DAILY
Ordered By: Manolo Holland MD
Last Taken: 07/04/24 09:33 0.22 mls
insulin aspart U-100 100 unit/mL (3 mL) Insulin Pen
8 unit SC AC Qty: 15 0RF
acetaminophen 325 mg Tablet
650 mg PO Q4HPRN PRN (Reason: mild pain/BECKFORD/temp> 100.4F) Qty: 10 0RF
diazepam 2 mg Tablet
2 mg PO BID Qty: 60 0RF
cephalexin 500 mg capsule
500 mg PO TID Qty: 18 0RF
Continued
fluoxetine 20 MG capsule
20 mg PO DAILY
pioglitazone 15 MG tablet
15 mg PO DAILY
metformin 850 MG tablet
850 mg PO BID
losartan 50 MG tablet
50 mg PO DAILY
fenofibrate 54 MG tablet
54 mg PO DAILY
clopidogrel 75 MG tablet
75 mg PO DAILY
pantoprazole 40 MG tablet,delayed release (DR/EC)
40 mg PO BID
atorvastatin 20 MG tablet
10 mg PO DAILY
carbidopa-levodopa 25-250 mg Tablet
1 tab PO TID
Patient Comments:
07/11/2023, patient's spouse states that patient takes one tablet of this medication @0700, 1100, 1500, 1900, and 2300.
carbidopa-levodopa 25-100 mg Tablet
1 tab PO BID
hyoscyamine sulfate 0.125 mg Tablet
0.125 mg PO TID
hyoscyamine sulfate 0.125 mg Tablet
0.125 mg PO DAILYPRN PRN (Reason: secretions)
Patient Comments:
06/30/24: Extra dose in case of increased secretions
cholecalciferol (vitamin D3) 50 mcg (2,000 unit) Tablet
50 mcg PO DAILY
zolpidem 5 mg Tablet
5 mg PO HS Qty: 2 0RF
terazosin 2 mg Capsule
2 mg PO HS Qty: 0 0RF
cyclosporine [Restasis] 0.05 % Dropperette
1 drp BOTH EYES Q12H
Systane (PF) 0.4-0.3 % Dropperette
1 drp BOTH EYES QID
magnesium oxide 400 mg magnesium Tablet
400 mg PO DAILY
Changed
potassium citrate 10 mEq (1,080 mg) Tablet Extended Release
10 meq PO DAILY Qty: 0 0RF
Discontinued
tramadol 50 mg Tablet
50 mg PO DAILYPRN PRN (Reason: moderate pain)
Discharge Orders:
Discharge Patient (As Directed); Ordered 07/04/24
Ordered By: Manolo Holland
Discharge Date and Time
Discharge Date/Time: 07/04/24 13:09
Print Language: BRITISH
== END 2024-07-04 13:09 | DRG 56 ==
LOC: 3 WEST ACU 19:42
PROVIDERS: Internal Medicine; Physician Assistant; ADMITTING PHYSICIAN Internal Medicine; ATTENDING PHYSICIAN Internal Medicine; CONSULT PHYSICIAN Psychiatry & Neurology Clinical Neurophysiology; EMERGENCY PHYSICIAN Student in an Organized Health Care Education/Training Program; FAMILY PHYSICIAN Nurse Practitioner Family; OTHER PHYSICIAN Psychiatry & Neurology Neurology
DX: G20.B1 Parkinson's disease with dyskinesia, without mention of fluctuations (principal); G93.41 Metabolic encephalopathy; N39.0 Urinary tract infection, site not specified; E87.1 Hypo-osmolality and hyponatremia; F02.A18 Dementia in other diseases classified elsewhere, mild, with other behavioral disturbance; F02.A3 Dementia in other diseases classified elsewhere, mild, with mood disturbance; I50.30 Unspecified diastolic (congestive) heart failure; M50.021 Cervical disc disorder at C4-C5 level with myelopathy; G24.9 Dystonia, unspecified; R53.1 Weakness; I11.0 Hypertensive heart disease with heart failure; E78.00 Pure hypercholesterolemia, unspecified; E66.9 Obesity, unspecified; F32.9 Major depressive disorder, single episode, unspecified; E11.42 Type 2 diabetes mellitus with diabetic polyneuropathy; E11.65 Type 2 diabetes mellitus with hyperglycemia; R32 Unspecified urinary incontinence; R13.10 Dysphagia, unspecified; M48.02 Spinal stenosis, cervical region; R26.2 Difficulty in walking, not elsewhere classified; B96.4 Proteus (mirabilis) (morganii) as the cause of diseases classified elsewhere; N40.0 Benign prostatic hyperplasia without lower urinary tract symptoms; L89.302 Pressure ulcer of unspecified buttock, stage 2; G31.9 Degenerative disease of nervous system, unspecified; Z74.09 Other reduced mobility; Z96.651 Presence of right artificial knee joint; I69.349 Monoplegia of lower limb following cerebral infarction affecting unspecified side; I69.391 Dysphagia following cerebral infarction; Z87.440 Personal history of urinary (tract) infections; Z87.891 Personal history of nicotine dependence; Z87.442 Personal history of urinary calculi; Z68.31 Body mass index [BMI] 31.0-31.9, adult; Z11.52 Encounter for screening for COVID-19; Z88.5 Allergy status to narcotic agent; Z91.040 Latex allergy status; Z79.84 Long term (current) use of oral hypoglycemic drugs; Z79.02 Long term (current) use of antithrombotics/antiplatelets; Z98.1 Arthrodesis status; Z90.49 Acquired absence of other specified parts of digestive tract; Z88.1 Allergy status to other antibiotic agents
CPT/HCPCS: 51701; 70450; 70551; 72141; 80048; 80053; 81003; 81015; 82962; 83036; 84484; 85025; 85027; 87077; 87086; 87186; 87502; 87811; 92523; 92526; 92610; 93005; 96374; 97163; 97167; 97530; 97535; 99285

== ENCOUNTER 2024-07-04 18:49 | Observation (INO) | payer MEDICARE, SELFPAY ==
[2024-07-04] VITALS (7 sets, daily range): BP systolic 108–144; BP diastolic 56–131; BMI 33.5
--- NOTE | 2024-07-04 16:24 | ED.GENMED ---
History of Present Illness
General
Chief Complaint: Social Service Referral
Source: patient and family
Time Seen by Provider: 07/04/24 16:10
History of Present Illness
History of Present Illness:
78yoM with a history of Parkinson's disease, insulin-dependent diabetes, hypertension, hyperlipidemia, dementia presenting via EMS for a social issue. Patient was just discharged from the hospital this afternoon after being admitted for weakness.
Patient was discharged to short-term rehab at [facility]. Family was unhappy with the care at the facility and states that 'it was a disaster' when he arrived. Family called EMS to bring him back to the ED to find alternate arrangements. Patient
has no complaints at this time.
Past History
Past History
ED Past Medical History: CVA, HTN, Hypercholesterolemia, NIDDM and Other
ED Past Surgical History: Orthopedic
Social History
Tobacco: Former smoker
Personal:
Living: with family
Phy Exam
General Physical Exam
General Presentation: well appearing and no apparent distress
General age: appears stated age
General Skin: warm and dry
General Habitus: normal
General Mental: alert
ENT Exam
ENT Exam: normocephalic
Pulmonary Exam
Pulmonary Exam: no respiratory distress
Neurological Exam
Neurological Exam: alert
Skin Exam
Skin Exam: normal color and warm/dry
Psychiatric Exam
Psychiatric Exam: normal mood/affect
Course
Orders/Labs/Results
Orders:
Orders
07/04/24 Dinner
IDDSI 6 - Soft & Bite Sized
At Your Request: Limited, Clothing Man Required
Does patient need a safe tray?: No
Dysphagia Diet: 1999/17 CHO Diabetic
07/04/24 16:15
Case Management Consult ONCE
Case Management Consult: Discharge Planning
07/04/24 16:24
Bedside Glucose- Treatment ONCE
07/04/24 17:11
Carbidopa/Levodopa [Sinemet 25-100] 1 tablet PO NOW STA
Carbidopa/Levodopa [Sinemet 25-250] 1 tablet PO NOW STA
07/04/24 17:18
Admit/Transfer Patient As Directed
Co-Sign Provider:
Level of Care: Observation services
Assign to:: Medical/Surgical
Physician / Group: Skyler
Diagnosis: Multifactorial Ambulatory Dysfunction
07/04/24 17:19
PRN Pain Medication Management As Directed
May give lesser potent ordered pain med per pt: Yes
preference::
Protocol:: Medication orders for pain may be administered in a
manner that supports deferring to patient preference
when the pt is:
- Requesting an ordered lesser potent pain medication.
Least to most potent pain medications are defined
as: acetaminophen < NSAID < tramadol < opioids
(morphine, oxycodone, hydromorphone).
- Requesting a lesser dose of the same medication IF
ORDERED.
- Requesting a less intrusive route of administration
if both routes are prescribed by the provider (PO <
IV).
07/04/24 17:24
Code Status As Directed
Resuscitation Status: Full Code
Abnormal Lab Results
07/04/24
16:46
POC Glucose 100 H mg/dl
(70-99)
Vital Signs
Initial and Last Documented VS:
Initial Vital Signs
BP
134/66
07/04/24 15:16
Last Documented Vital Signs
Temp Pulse Resp BP Pulse Ox
97.6 F 91 18 116/76 94
07/04/24 15:21 07/04/24 15:18 07/04/24 16:45 07/04/24 18:00 07/04/24 19:30
MDM/Problems Addressed
Differential Diagnosis Includes:
78yoM here for a social issue. Discharged to rehab today but family unhappy with facility to brought him back to the hospital. VSS. No other complaints at this time and he is in no distress.
Case management consulted and patient unable to be placed tonight. Will admit for observation.
*Critical Care Note
Total Time (30-74mins, 75-104mins- exclusive of procedures): Not Applicable
ED Attending Note
-
Portions of this chart may have been created with voice recognition software.� Occasional wrong word or��sound alike� substitutions may have occurred due to the inherent limitations of voice recognition software.
Discharge Plan
Departure
Patient Disposition: Admit
Date of Disposition: 07/04/24
Time of Disposition: 16:52
Presentation/result/management discussed w/ accepting MD/DO: Hospitalist
Discharge Problem:
Ambulatory dysfunction, Hospital admission due to social situation
Interventions
Interventions:
*Risk Screen - Suicide Last Done: 07/04/24 15:17
*General Assessment Last Done: 07/04/24 15:17
*Neglect/Abuse Screening Last Done: 07/04/24 15:17
*ED- Fall Risk Assessment Last Done: 07/04/24 15:17
*ED COVID-19 Vaccine History Last Done: 07/04/24 15:17
ED-Psychological Assessment Last Done: 07/04/24 15:19
[2024-07-04 16:47] LABS: Glucose - Point of Care 100 mg/dl (70-99)
--- NOTE | 2024-07-04 16:58 | CM ---
Clinicals via carport to [facility], [facility] and [facility].
[facility] able to accept.
Clinicals faxed to [phone] per request.
fax failed, faxed to [phone]
Patient will need ambulance transport.
Transport unable to take before 7:45-8 pm tonight[address]
[facility]
Report# [phone]
--- NOTE | 2024-07-04 17:28 | HPS.HSE ---
Addendum entered and electronically signed by Vasile Tang MD 07/04/24 17:44:
I saw and examined the patient.
The VOICE AND DATA TECHNICIAN or PA's note was reviewed and I agree with the note.
Comment:
78M HX Parkinson's, dementia, IDDM, HTN, HLD
He was just admitted and discharged this afternoon to [facility].
Family unhappy with the facility so brought him back to the ED for placement.
Case management unable to place him tonight.
However , he is accepted SNF @ [facility] in AM. ? 830 AM
Original Note:
Family Physician
-
Family Physician: ANDREW Helms
Chief Complaint
-
Ambulatory Dysfunction
History of Present Illness
Patient is a 78 y//o male past medical history of Parkinson's disease, prior stroke, uncontrolled diabetes, and chronic heart failure who returns to the emergency department following discharge earlier today. Patient was discharged today to [place]. Family was not satisfied with the care at the facility. Family called EMS and he was brought to the emergency department. Patient was evaluated by case management in the emergency department. Patient has now bee accepted at [facility] but unfortunately final arrangements can not be made until tomorrow.
Medical History
Past Medical History
Past Medical History: Reports Other
Additional Past Medical History:
Parkinson's Disease
Stroke with Residual Left Leg Weakness
Chronic HFpEF
Hypertension
Hyperlipidemia
DM-II
Nephrolithiasis
Asbestosis / Pleural Plaques
Mild Dementia
Past Surgical History: Reports Other
Additional Past Surgical History:
Right TKA
Cervical Spine Fusion
Lumbar Surgery x 3
Left Rotator Cuff Surgery
Cholecystectomy
Ureteroscopy / Stent
Social History
Tobacco: Former Smoker (Quit smoking 15 years ago. Approx 40 pack years total use.)
Alcohol: None
Drug: None
Personal:
Living: With Family
Family History
Family History: Other (Father: Asbestosis, CAD)
Allergies / Home Medications
Allergies reflects when Allergies were last updated in [facility].
Home Medications with original date entered in [employer]
Allergy/Medication List:
Allergies
Allergy/AdvReac Type Severity Reaction Status Date / Time
doxycycline Allergy Intermediate Rash Verified 07/01/24 11:12
codeine Allergy Unknown Verified 11/16/21 06:50
latex Allergy Unknown Verified 11/16/21 06:50
oxycodone HCl [From Percocet] Allergy Unknown Verified 11/16/21 06:50
Home Medications
fluoxetine 20 mg capsule 20 mg PO DAILY depression/anxiety 11/12/12
metformin 850 mg tablet 850 mg PO BID Diabetes 03/08/18
pioglitazone 15 mg tablet 15 mg PO DAILY Diabetes 03/08/18
losartan 50 mg tablet 50 mg PO DAILY Blood pressure 11/12/18
clopidogrel 75 mg tablet 75 mg PO DAILY Blood clot prevention/tx 01/11/20
fenofibrate 54 mg tablet 54 mg PO DAILY High cholesterol 01/11/20
pantoprazole 40 mg tablet,delayed release 40 mg PO BID Gastrointestinal issue 01/11/20
atorvastatin 20 mg tablet 10 mg PO DAILY High cholesterol 09/12/21
carbidopa 25 mg-levodopa 100 mg tablet 1 tab PO BID parkinson's disease 11/16/21
carbidopa 25 mg-levodopa 250 mg tablet 1 tab PO TID parkinson's disease 11/16/21
cholecalciferol (vitamin D3) 50 mcg (2,000 unit) tablet 50 mcg PO DAILY Supplement 02/04/23
hyoscyamine sulfate 0.125 mg tablet 0.125 mg PO DAILYPRN PRN secretions 02/04/23
hyoscyamine sulfate 0.125 mg tablet 0.125 mg PO TID secretions 02/04/23
terazosin 2 mg capsule 2 mg PO HS Blood pressure #0 caps 07/13/23
zolpidem 5 mg tablet 5 mg PO HS #2 tabs 07/13/23
cyclosporine 0.05 % eye drops in a dropperette (Restasis) 1 drp BOTH EYES Q12H dry eyes 03/12/24
peg 400-propylene glycol (PF) 0.4 %-0.3 % eye drops in a dropperette (Systane (PF)) 1 drp BOTH EYES QID dry eyes 03/12/24
magnesium oxide 400 mg PO DAILY Supplement 06/30/24
Insulin Glargine Lantus [Lantus] 22 units As Directed mls/hr SC DAILY 07/04/24
acetaminophen 325 mg tablet 650 mg (2 x 325 mg) PO Q4HPRN PRN mild pain/BECKFORD/temp> 100.4F #10 tabs 07/04/24
cephalexin 500 mg capsule 500 mg PO TID #18 caps 07/04/24
diazepam 2 mg tablet 2 mg PO BID #60 tabs 07/04/24
insulin aspart U-100 100 unit/mL (3 mL) subcutaneous pen 8 unit (0.08 mL) SC AC #15 mL 07/04/24
polyethylene glycol 3350 17 gram oral powder packet 17 g PO DAILY #30 ea 07/04/24
potassium citrate 10 mEq (1,080 mg) tablet,extended release 10 meq PO DAILY Electrolyte Repletion #0 tabs 07/04/24
Review of Systems
-
Unable to obtain full review of systems at this time due to: Dementia
Physical Exam
Vital Signs
Vital Signs
Temp Pulse Resp BP Pulse Ox
97.6 F 91 18 134/66 96
07/04/24 15:21 07/04/24 15:18 07/04/24 16:45 07/04/24 15:18 07/04/24 15:18
Physical Exam
General: Well Developed and Well Nourished
HEENT: NormoCephalic and Atraumatic
Respiratory: Clear and Non Labored Respirations
Cardiac: S1/S2 and Regular Rhythm
GI: Soft and Non Tender
Rectal: Deferred by Provider
Musculoskeletal: No Clubbing and No Cyanosis
Skin: Warm and Dry
Neuro: Awake and Alert
Psych: Calm
Data Reviewed
-
Lab Data: Labs Reviewed by me
Impression/Plan
-
Multifactorial Ambulatory Dysfunction
-Arrangements made for SNF transfer tomorrow morning
Proteus mirabilis UTI
-Continue cephalexin
Dyskinesia
-Continue Valium as started during last admission
Uncontrolled Diabetes Mellitus - HgbA1c 12.6
-Continue Lantus and NovoLog
-Continue metformin, and pioglitazone
-Monitor sugars and continue coverage insulin
TIA/CVA
-Continue Plavix
Essential Hypertension
-Continue losartan and terazosin
Hyperlipidemia
-Continue atorvastatin and fenofibrate
Parkinson's Disease
-Continue Sinemet
Dysphagia
-Continue IDDSI 6 with thin liquids
--- NOTE | 2024-07-04 17:31 | ED TECH ---
Arranged transpotation [facility] as per child support case officer Franca tomorrow morning (07/05/24) at 10 am.
--- NOTE | 2024-07-04 17:34 | CM ---
Patient seen at bedside along with Alice & daughter
Patient was discharged today to [facility] today
Patient had multiple concerns and was not happy with facility & called 911 and brought back to
CM and CM director met with family & concerns addressed
Patient/ did not want to return to [facility]
options again reviewed - agreeable with [facility]
She requested a 9:30am transport tomorrow.
Patient will be OBS status - FOX form to be signed.
PLAN: [facility] tomorrow
Report #: [phone]
Fax #: [phone]
[2024-07-04] MEDS: SINEMET 25-100 1 TABLET PO (18:03)
[2024-07-04] MEDS: SINEMET 25-250 1 TABLET PO (18:15)
[2024-07-04 21:33] LABS: Glucose - Point of Care 114 mg/dl (70-99)
[2024-07-04] MEDS: PROTONIX 40 MG PO (21:38)
[2024-07-04] MEDS: HYTRIN 2 MG PO (21:38)
[2024-07-04] MEDS: LEVSIN 0.125 MG PO (21:39)
[2024-07-04] MEDS: LANTUS 0.22 UNITS SC (21:40)
[2024-07-04] MEDS: VALIUM 2 MG PO (21:40)
[2024-07-04] MEDS: RESTASIS 0.05% OPHTHALMIC EMULSION 1 DROPS BOTH EYES (21:40)
[2024-07-04] MEDS: AMBIEN 5 MG PO (21:41)
[2024-07-04] MEDS: REFRESH EYE DROPS (PF) 1 DROPS BOTH EYES (21:41)
[2024-07-04] MEDS: KEFLEX 500 MG PO (21:41)
[2024-07-04] MEDS: GLUCOPHAGE 850 MG PO (21:42)
[2024-07-05] MEDS: SINEMET 25-100 1 TABLET PO (02:28)
[2024-07-05] MEDS: MIRALAX 17 GRAMS PO (08:37)
[2024-07-05] MEDS: VALIUM 2 MG PO (08:37)
[2024-07-05] MEDS: PLAVIX 75 MG PO (08:38)
[2024-07-05] MEDS: COZAAR 50 MG PO (08:38)
[2024-07-05] MEDS: KEFLEX 500 MG PO (08:38)
[2024-07-05] MEDS: PROTONIX 40 MG PO (08:38)
[2024-07-05] MEDS: REFRESH EYE DROPS (PF) 1 DROPS BOTH EYES (08:38)
[2024-07-05] MEDS: VITAMIN D3 (cholecalciferol) 50 MCG PO (08:38)
[2024-07-05] MEDS: LIPITOR 10 MG PO (08:38)
[2024-07-05] MEDS: PROZAC 20 MG PO (08:38)
[2024-07-05] MEDS: MAG-TAB SR 84 MG PO (08:38)
--- NOTE | 2024-07-05 08:38 | CM ---
Patient seen at bedside
booking clerk states transport to [facility] today at 10am
Notified Alyssia at [facility] of time
Updated the patient and called & spoke with with Alice [phone]
discussion with that if there are any concerns to discuss with facility, verbalizes understanding
Referral in [facility]port updated
FOX form explained to patient & Alice & verbalize understanding
PLAN: [facility] today
Report #: [phone]
Fax #: [phone]
transportation via ambulance at 10am per assistant community manager
[2024-07-05 08:50] VITALS: BP 140/70
[2024-07-05 08:57] LABS: Glucose - Point of Care 122 mg/dl (70-99)
[2024-07-05] MEDS: NOVOLOG FLEXPEN 8 UNITS SC (09:04)
[2024-07-05] MEDS: UROCIT-K 10 MEQ PO (09:05)
[2024-07-05] MEDS: SINEMET 25-250 1 TABLET PO (09:05)
[2024-07-05] MEDS: RESTASIS 0.05% OPHTHALMIC EMULSION 1 DROPS BOTH EYES (09:05)
[2024-07-05] MEDS: LEVSIN 0.125 MG PO (09:06)
[2024-07-05] MEDS: TRICOR 48 MG PO (09:06)
[2024-07-05] MEDS: ACTOS 15 MG PO (09:06)
[2024-07-05] MEDS: GLUCOPHAGE 850 MG PO (09:06)
--- NOTE | 2024-07-05 10:42 | PTCARENOTE ---
pt discharged to [facility] via stretcher/ambulance transport. present at departure. pt is aware and agreeable to transfer
--- NOTE | 2024-07-05 11:09 | W.PN.HOSP.TC ---
Today's Communication/Plan
-
dc
Assessment / Plan
Assessment / Plan
Physical Exam
-
General: Appears Chronically Ill, not in respiratory distress
HEENT: Normocephalic and Atraumatic
Respiratory: Negative Wheezes
Cardiac: Regular Rhythm
GI: Soft and Nontender
Skin: no bruising
Neuro: AO to self and surroundings, he followed commands, less stiffness, + hypophonia, sometimes dyskinesias.
Psych: Calm
Assessment:
# Proteus mirabilis UTI, complicated due to male sex
No fever. No leukocytosis.
Bladder scan done few times randomly and no retention.
- continue Rocephin, change to oral ABx upon discharge to finish 10 days course.
no need for more IVF
R>L arm numbness, acute on chronic
CT head: No acute intracranial abnormality noted.
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
Per neurology: use Valium 2 mg BID
- known spinal stenosis
# Dyskinesias
#Ambulatory dysfunction
Multifactorial ambulatory dysfunction (parkinsonism, polyneuropathy, myelopathy)
- PT eval
- CM for SNF
DM II
Added Lantus and pre-meal insulin
Hemoglobin A1c in February, was 12.1
- metformin 850 bid
- pioglitazone
- sliding scale insulin
Parkinson disease with RLE dyskinesias
- carbidopa-levodopa
- continue fluoxetine
- zolpidem hs
- ST eval
- Neuro eval for dyskinesia symptom control
# Stage 2 pressure wound/ buttocks
Essential HTN
- continue losartan
TIA/CVA
- continue Plavix, Tricor and atorvastatin
DVT ppx: Lovenox
Code: Full
# hyponatremia, resolved
Total discharge time spent to see the patient, examine the patient, review data and lab results, discuss discharge plan with patient, and nursing staff around 67 minutes
Anticipated Discharge: Today
Subjective/Interval History
-
Date of Service: July 05, 2024
no chest pain
no sob
no abdominal pain
Objective Data
-
Vital Signs:
Vital Signs
Temp Pulse Resp BP Pulse Ox
97.7 F 74 18 140/70 97
07/05/24 08:50 07/05/24 08:50 07/05/24 08:50 07/05/24 08:50 07/05/24 08:50
I&O
07/04/24 07/05/24 07/06/24
06:59 06:59 06:59
Intake Total 480 / 480
Balance 480 / 480
--- NOTE | 2024-07-05 15:30 | W.DCSUMMARY ---
Discharge Summary
Discharge Data
Date of Admission: 07/04/24
Date of Discharge: 07/05/24
-
Pending Results: No
Hospital Course
78 years old male with history of Parkinson's, dementia, IDDM, HTN, dyskinesia, HLD. He was just admitted to and discharged on 07/04 to [facility]. Upon arrival to the facility, family became unhappy with the facility so brought him back to
the ED for placement. Case management made arrangement to go to another facility after discussing with patient and his family. However , he was accepted SNF at [facility] and was discharged in a stable condition.
Discharge Plan
-
Patient Disposition: Residential/SNF
Discharge Diagnosis/Procedures: .
Referrals:
Genesis Reza CRNP [Family Provider] -
Prescriptions:
Continued
fluoxetine 20 MG capsule
20 mg PO DAILY
pioglitazone 15 MG tablet
15 mg PO DAILY
metformin 850 MG tablet
850 mg PO BID
losartan 50 MG tablet
50 mg PO DAILY
fenofibrate 54 MG tablet
54 mg PO DAILY
clopidogrel 75 MG tablet
75 mg PO DAILY
pantoprazole 40 MG tablet,delayed release (DR/EC)
40 mg PO BID
atorvastatin 20 MG tablet
10 mg PO DAILY
carbidopa-levodopa 25-250 mg Tablet
1 tab PO TID
Patient Comments:
07/11/2023, patient's spouse states that patient takes one tablet of this medication @0700, 1100, 1500, 1900, and 2300.
carbidopa-levodopa 25-100 mg Tablet
1 tab PO BID
hyoscyamine sulfate 0.125 mg Tablet
0.125 mg PO TID
hyoscyamine sulfate 0.125 mg Tablet
0.125 mg PO DAILYPRN PRN (Reason: secretions)
Patient Comments:
06/30/24: Extra dose in case of increased secretions
cholecalciferol (vitamin D3) 50 mcg (2,000 unit) Tablet
50 mcg PO DAILY
zolpidem 5 mg Tablet
5 mg PO HS Qty: 2 0RF
terazosin 2 mg Capsule
2 mg PO HS Qty: 0 0RF
cyclosporine [Restasis] 0.05 % Dropperette
1 drp BOTH EYES Q12H
Systane (PF) 0.4-0.3 % Dropperette
1 drp BOTH EYES QID
magnesium oxide 400 mg magnesium Tablet
400 mg PO DAILY
polyethylene glycol 3350 17 gram Powder In Packet
17 g PO DAILY Qty: 30 0RF
Insulin Glargine Lantus [Lantus] 22 UNITS
Subcutaneous Insulin Syringe [Syringe-Insulin] 0 UNIT
As Directed mls/hr SC DAILY
Ordered By: Manolo Holland MD
Last Taken: 07/04/24 09:33
insulin aspart U-100 100 unit/mL (3 mL) Insulin Pen
8 unit SC AC Qty: 15 0RF
acetaminophen 325 mg Tablet
650 mg PO Q4HPRN PRN (Reason: mild pain/[place]/temp> 100.4F) Qty: 10 0RF
diazepam 2 mg Tablet
2 mg PO BID Qty: 60 0RF
cephalexin 500 mg capsule
500 mg PO TID Qty: 18 0RF
potassium citrate 10 mEq (1,080 mg) Tablet Extended Release
10 meq PO DAILY Qty: 0 0RF
Discharge Orders:
Discharge Patient (As Directed); Ordered 07/05/24
Ordered By: Manolo Holland
Discharge Date and Time
Print Language: SPANISH
--- NOTE | 2024-07-06 13:34 | CM ---
Call received from Hoist Operator from [facility] that she just received a call from his , that he is adamant about leaving [facility]. He wants to go home. Call placed to liaison from [facility]. She stated DON at [facility] and other staff
members there have been trying to convince them to stay since shortly after arriving there yesterday. Hoist Operator from [facility] to provide Hydro Mechanic list as well as making a referral to . She also made aware that if he should come
back to the hospital to be placed , he would be considered a [facility] and be charged $3,000 a day plus ancillary charges. Update to CM.
== END 2024-07-05 11:00 ==
LOC: ED 18:49
PROVIDERS: ADMITTING PHYSICIAN Internal Medicine; ATTENDING PHYSICIAN Internal Medicine; EMERGENCY PHYSICIAN Emergency Medicine; FAMILY PHYSICIAN Nurse Practitioner Family
DX: Z65.8 Other specified problems related to psychosocial circumstances (principal); I11.0 Hypertensive heart disease with heart failure; Z79.4 Long term (current) use of insulin; E11.65 Type 2 diabetes mellitus with hyperglycemia; E11.42 Type 2 diabetes mellitus with diabetic polyneuropathy; F02.A0 Dementia in other diseases classified elsewhere, mild, without behavioral disturbance, psychotic disturbance, mood disturbance, and anxiety; G20.B1 Parkinson's disease with dyskinesia, without mention of fluctuations; Z87.891 Personal history of nicotine dependence; E78.00 Pure hypercholesterolemia, unspecified; Z60.8 Other problems related to social environment; N39.0 Urinary tract infection, site not specified; Z79.02 Long term (current) use of antithrombotics/antiplatelets; R13.10 Dysphagia, unspecified; L89.302 Pressure ulcer of unspecified buttock, stage 2
CPT/HCPCS: 82962; 87070; 99283; G0378

== ENCOUNTER → 2024-09-27 11:32 | Outpatient (REF) | payer MEDICARE, SELFPAY ==
[2024-09-27 12:23] LABS: Urine Character Clear (Clear)
[2024-09-27 13:21] LABS: Urine White Cell 30-40 /HPF (0-5)
== END ==
LOC: REG 11:32
PROVIDERS: ATTENDING PHYSICIAN Nurse Practitioner Family; REFERRING PHYSICIAN Internal Medicine Cardiovascular Disease
DX: R35.0 Frequency of micturition (principal)
CPT/HCPCS: 81003; 81015; 87077; 87086; 87186